=== PATIENT | female | born 1955 | race Caucasian/White ===

== ENCOUNTER → 2018-04-10 | Outpatient (CLI) | payer MEDICARE ==
[~2018-04-10] MED LIST: /AUGM875TA OR; /CELE20CA OR; /VERA40TA OR; COLA100C2 OR; PERC5TAB8 OR; PERC7.5T8 OR; PROP20TA2 OR; TOPI100T OR
[2018-04-10 10:45] LABS: HEMATOCRIT 39.2 % (36.0-47.0); HEMOGLOBIN 12.7 g/dl (12.0-15.5); MEAN CORPUSCULAR HEMOGLOBIN 29.9 pg (27.0-33.0); MEAN CORPUSCULAR HGB CONC 32.4 g/dl (32.0-36.5); MEAN CORPUSCULAR VOLUME 92.2 fl (80.0-96.0); PLATELET COUNT, AUTOMATED 268 10^3/uL (150-450); RED BLOOD COUNT 4.25 10^6/uL (4.00-5.40); WHITE BLOOD COUNT 10.6 10^3/uL (4.0-10.0)
[2018-04-10 10:52] LABS: APPEARANCE, URINE CLOUDY (CLEAR); BACTERIA, URINE AUTO 2+ (NEGATIVE); BILIRUBIN, URINE AUTO NEGATIVE (NEGATIVE); BLOOD, URINE BLOOD 1+ (NEGATIVE); COLOR, URINE YELLOW (YELLOW); GLUCOSE, URINE (UA) AUTO NEGATIVE (NEGATIVE); KETONE, URINE AUTO NEGATIVE (NEGATIVE); LEUKOCYTE ESTERASE, URINE AUTO 3+ (NEGATIVE); MUCUS, URINE SMALL (NEGATIVE); NITRITE, URINE AUTO NEGATIVE (NEGATIVE); PROTEIN, URINE AUTO 1+ mg/dL (NEGATIVE); RBC, URINE AUTO 37 /HPF (0-3); RENAL EPITHELIAL CELLS 1 /HPF; SPECIFIC GRAVITY URINE AUTO 1.009 (1.002-1.035); SQUAMOUS EPITHELIAL CELL UR AU 0 /HPF (0-6); TRANSITIONAL EPITHELIAL AUTO <1 /HPF; UROBILINOGEN, URINE AUTO 0.2 mg/dL (0.0-2.0); WBC, URINE AUTO TNTC /HPF (0-3)
[2018-04-10 11:23] LABS: ALBUMIN 3.1 GM/DL (3.2-5.2); BILIRUBIN,TOTAL 0.6 MG/DL (0.2-1.0); CALCIUM LEVEL 9.1 MG/DL (8.8-10.2); CHOLESTEROL RISK RATIO 2.414 (<5); CREATININE FOR GFR 1.08 MG/DL (0.55-1.30); GLOMERULAR FILTRATION RATE 54.2 (>45); POTASSIUM SERUM 4.9 MEQ/L (3.5-5.1); THYROID STIMULATING HORMONE 0.616 uIU/ML (0.358-3.740); TOTAL 25(OH) VITAMIN D 26.1 NG/ML (30.0-100.0); TOTAL PROTEIN 7.1 GM/DL (6.4-8.2)
[2018-04-10 12:01] LABS: HEMOGLOBIN A1c 5.8 %
--- NOTE | 2018-04-11 04:26 | REP ---
Clinical: Primary hypertension . Comparison: 09/12/2012 . Technique: PA and lateral. Findings: The mediastinum and cardiac silhouette are normal. The lung augustine are clear and without acute consolidation, effusion, or pneumothorax. The skeletal structures are intact and normal. Impression: 1. No acute cardiopulmonary process. Electronically Signed by Faustino Acosta MD 04/11/2018 04:17 A
--- NOTE | 2018-04-11 06:21 | ECGEPIP ---
Stationary ECG Study [facility] Test Date: 2018-04-10 Pat Name: SORAIDA PORTILLO Department: Room: - Gender: F Sock Drier: NORMA : 1955 Requested By: Landry Segundo Order Number: [id number] Reading MD: Paulette Leija Measurements Intervals Lamar Rate: 65 P: 35 IL: 174 QRS: 1 QRSD: 94 T: 41 QT: 391 QTc: 407 Interpretive Statements SINUS RHYTHM SINCE 09/12/12 LEFT AXIS DEVIATION AND POOR R WAVE PROGRESSION ARE NO LONGER PRESENT Electronically Signed On 04-11-2018 6:21:26 EST by Paulette Leija
== END ==
LOC: M LAB 09:48
PROVIDERS: ATTEND Family Medicine
DX: I10 Essential (primary) hypertension (principal); E11.9 Type 2 diabetes mellitus without complications; E03.9 Hypothyroidism, unspecified

== ENCOUNTER → 2018-04-18 | Outpatient (CLI) | payer MEDICARE, OTHER ==
[~2018-04-18] MED LIST changes: +ISOVUE-370 76% 100ML VIAL (Q9967) As Ordered ONE
--- NOTE | 2018-04-18 11:41 | REP ---
Clinical: Painless hematuria. Technique: Axial precontrast, arterial phase, corticomedullary phase and delayed phase images from the lung bases to the pubic symphysis using 100 ml Isovue 370 intravenous contrast material with coronal and sagittal re-formations. Findings: The left kidney demonstrates asymmetric nephrogram with delayed enhancement as well as perinephric stranding and grade 4 hydroureteronephrosis secondary to a multilobulated bladder mass predominantly involving the left bladder trigone/ureterovesicle junction measuring roughly 6 cm maximal diameter. No obvious perivesicular stranding or pelvic adenopathy is appreciated. Left para-aortic retroperitoneal lymph nodes at the level of the left renal pelvis measure up to 1.9 cm. Left renal vein and renal arteries appear patent and without evidence for thrombus. Liver includes stable 3.5 cm cyst. Spleen, pancreas, gallbladder, bilateral adrenal glands and right kidney/ureter appear relatively normal. The enteric system is without obstruction or acute inflammatory process. Pelvis demonstrates relatively normal appearance to the uterus/adnexa. No ascites. No free air. Abdominal aorta demonstrates atherosclerotic changes without aneurysm or dissection. Musculoskeletal structures demonstrate degenerative changes without focal osseous abnormality. Lung bases are clear. Impression: 1. Multilobulated bladder mass consistent with malignancy causing obstruction to the left collecting system with associated grade four hydroureteronephrosis and delayed left nephrogram. Retroperitoneal adenopathy at the level of the renal pelvis measuring up to 19 mm noted. 2. Stable hepatic cyst. 3. No ascites. Electronically Signed by Faustino Acosta MD 04/18/2018 11:33 A
== END ==
LOC: M RAD 10:32
PROVIDERS: ATTEND Family Medicine
DX: N32.9 Bladder disorder, unspecified (principal); K76.89 Other specified diseases of liver; R31.9 Hematuria, unspecified
CPT/HCPCS: 74178; Q9967

== ENCOUNTER → 2018-05-03 | Outpatient (REF) | payer MEDICARE ==
[~2018-05-03] MED LIST changes: +BACT800T5 PO; +FLOM0.4C39 PO; -ISOVUE-370 76% 100ML VIAL (Q9967) As Ordered ONE; +KEFL500C17 PO; +LEVO-98 PO; +OXAY1TAB PO; +OXYB5TAB10 PO; +PROP20TA72 PO; +ROPI2TAB PO; +TYLE500T78 PO; +VERA40TA PO
== END ==
LOC: M SMT 14:03
PROVIDERS: ATTEND Urology Pediatric Urology
DX: N32.89 Other specified disorders of bladder (principal); N13.30 Unspecified hydronephrosis; R31.0 Gross hematuria
CPT/HCPCS: 88108; G0463

== ENCOUNTER → 2018-05-04 | Outpatient (CLI) | payer MEDICARE ==
[~2018-05-04] MED LIST changes: -KEFL500C17 PO
[2018-05-04 09:08] LABS: BASO # 0.1 10^3/uL (0.0-0.2); BASO % 0.6 % (0.0-1.0); EOS # 0.3 10^3/uL (0.0-0.50); EOS % 4.3 % (0.0-3.0); HEMATOCRIT 37.2 % (36.0-47.0); HEMOGLOBIN 11.9 g/dl (12.0-15.5); LYMPH # 1.1 10^3/uL (1.5-4.5); LYMPH % 14.1 % (24.0-44.0); MEAN CORPUSCULAR HEMOGLOBIN 28.7 pg (27.0-33.0); MEAN CORPUSCULAR VOLUME 89.9 fl (80.0-96.0); MONO # 0.6 10^3/uL (0.0-0.8); MONO % 8.1 % (0.0-5.0); NEUTROPHILS # 5.7 10^3/uL (1.8-7.7); NEUTROPHILS % 72.4 % (36.0-66.0); PLATELET COUNT, AUTOMATED 297 10^3/uL (150-450); RED BLOOD COUNT 4.14 10^6/uL (4.00-5.40); WHITE BLOOD COUNT 7.9 10^3/uL (4.0-10.0)
[2018-05-04 09:16] LABS: INR 0.95; PROTHROMBIN TIME 12.8 SECONDS (12.1-14.4)
[2018-05-04 09:17] LABS: PARTIAL THROMBOPLASTIN TIME 30.6 SECONDS (25.4-37.6)
[2018-05-04 09:25] LABS: HEMOGLOBIN A1c 5.7 %
[2018-05-04 09:37] LABS: BILIRUBIN,TOTAL 0.5 MG/DL (0.2-1.0); CALCIUM LEVEL 9.3 MG/DL (8.8-10.2); CREATININE FOR GFR 1.1 MG/DL (0.55-1.30); GLOMERULAR FILTRATION RATE 53.1 (>45); POTASSIUM SERUM 4.4 MEQ/L (3.5-5.1); THYROID STIMULATING HORMONE 0.017 uIU/ML (0.358-3.740); TOTAL PROTEIN 6.9 GM/DL (6.4-8.2)
== END ==
LOC: M LAB 08:16
PROVIDERS: ATTEND Urology Pediatric Urology
DX: Z01.818 Encounter for other preprocedural examination (principal); N32.89 Other specified disorders of bladder; N13.30 Unspecified hydronephrosis; I10 Essential (primary) hypertension; R31.0 Gross hematuria; D64.9 Anemia, unspecified; E11.9 Type 2 diabetes mellitus without complications

== ENCOUNTER → 2018-05-10 | Day surgery (SDC) | payer MEDICARE ==
[~2018-05-10] VITALS: Ht 167.6 cm; Wt 94.3 kg
[~2018-05-10] MED LIST changes: +ACETAMINOPHEN 650 MG SUPP As Ordered ONE; +ACETAMINOPHEN 650 MG SUPP PR ONE; +BACITRACIN OINT 30GM As Ordered ONE; +BELLADONNA ALKALOIDS/OPIUM SUPP As Ordered ONE; +BELLADONNA ALKALOIDS/OPIUM SUPP PR ONE; +CONRAY-60 60% 50ML VIAL (Q9961) As Ordered ONE; +ISOVUE-300 61% 50ML VIAL (Q9967) As Ordered ONE; +LIDOCAINE 1% MDV 20ML VIAL As Ordered ONE; +LIDOCAINE 2% 5ML JELLY UROJET As Ordered ONE; +LIDOCAINE 2% INJ 100 MG/5 ML SDV (FOR ANES.) As Ordered ONE; +LR 1,000 ML IV SCH; +METOCLOPRAMIDE INJ 10MG/2ML VIAL (J2765) IV PRN; +MIDAZOLAM INJ 2 MG/2 ML VIAL (J2250) As Ordered ONE; +ONDANSETRON 4MG/2ML VIAL (J2405) As Ordered ONE; +ONDANSETRON 4MG/2ML VIAL (J2405) IV PRN; +PERCOCET 5MG/325MG TAB As Ordered ONE; +PERCOCET 5MG/325MG TAB PO PRN; +PIPERACILLIN/TAZOBACTAM SOD 2.25 GM in D5W MINI-BAG PLUS 50 ML IV ONE; +PROPOFOL 200 MG/20 ML VIAL As Ordered ONE; +ROCURONIUM BROMIDE 50 MG/5 ML VIAL As Ordered ONE; +SODIUM CHLORIDE 0.9% 1000ML IV ONE; +SUGAMMADEX SODIUM 500 MG/5 ML VIAL (BRIDION) As Ordered ONE; +dexameTHASONE 4 MG/ML 1ML VIAL (J1100) As Ordered ONE; +fentaNYL 100 MCG/2 ML INJECTION (J3010) As Ordered ONE; +fentaNYL 100 MCG/2 ML INJECTION (J3010) IV PRN; +fentaNYL 250 MCG/5 ML INJECTION (J3010) As Ordered ONE; +oxyBUTYnin 5 MG TAB PO PRN
--- NOTE | 2018-05-10 10:50 | ROOPDOC ---
[facility] Report Of Operation Report of Operation DATE OF PROCEDURE: 05/10/18 PREPROCEDURE DIAGNOSES: BLADDER MASSES (EXTREMELY LARGE); LEFT OBSTRUCTED URETER. POSTPROCEDURE DIAGNOSES: SAME. PROCEDURE: TRANSURETHRAL RESECTION OF THE BLADDER TUMOR. SURGEON: ANNALISE WHITMAN MD [facility] ANESTHESIA: GET (DR. VALIENTE). ESTIMATED BLOOD LOSS: Approximately 30 mL. COMPLICATIONS: NONE REMARKS/FINDINGS: 1. BLADDER WALL THIN RIGHT LATERAL SECONDARY REMOVED MUSCLE TISSUE. 2. URETHRAL STRICTURE. 3. SEVERAL EXTREMELY LARGE BLADDER TUMORS 4. RIGHT URETERAL ORIFICE APPEARS NORMAL 5. LEFT URETERAL ORIFICE APPEARS ABNORMAL 6. DISCUSSED LEFT PERCUTANEOUS NEPHROSTOMY TUBE WITH HEAVENLY AND CATHERINE DESCRIPTION OF PROCEDURE: AFTER INFORMED CONSENT THE PATIENT WAS TAKEN TO THE OPERATING ROOM WHERE SHE WAS PLACED IN LITHOTOMY POSITION AND ROUTINE TIME OUT WAS CONDUCTED AFTER TO INDUCTION OF ANESTHESIA WITH ALL THE REYES SURGICAL STAKEHOLDERS. RADIOLOGY WAS CALLED TO COMPLETE THE LEFT PERCUTANEOUS NEPHROSTOMY. THE PATIENT WAS PREPPED AND DRAPED THE URETHRAL WAS DILATED TO 34F WITH SOUNDS AND THEN 27F RESECTOSCOPE (LOOP) WAS PLACED IN THE BLADDER FOR RESECTION OF SEVERAL EXTREMELY LARGE TUMORS. THE BUTTON WAS USED FOR HEMOSTASIS. SURGICEL WAS PLACE IN THE WATER FOR IRRIGATION AND TUMOR WAS IDENTIFIED. FINDINGS ABOVE. A 24F [address] DIGGS WAS PLACED IN THE BLADDER. THE 3 WAY WAS PLACED TO DRAINAGE AND IRRIGATION PORT TO CATHETER PLUG. SPOKE WITH ABOUT FINDINGS AND PLAN OF CARE: FLOMAX TYLENOL BACTRIM DITROPAN ORDERED STOP DITROPAN 24 HOURS PRIOR TO VOIDING TRIAL IN THE OFFICE CYSTOGRAM AN OUTPATIENT WILL SCHEDULED TELEPHONE ENCOUNTER IN [facility]. ANNALISE WHITMAN MD [facility] Annalise Whitman MD May 10, 2018 10:38
--- NOTE | 2018-05-10 16:52 | IPNPDOC ---
Date Seen The patient was seen on 05/10/18. Progress Note SUBJECTIVE: Patient is a 63yo female was seen after her percutaneous nephrostomy tube; she is s/p turbt from earlier. discussed with dr. bruce that he does not admit patients. discussed with patient how she was feeling and she stated, she wants to go home if she could. she has no significant bleeding from her kidney (as demonstrated circumstantially from her left kidney urine) and more blood at her bladder. Orthostatics are normal. without cognitive impairment. OBJECTIVE PHYSICAL EXAMINATION: VITAL SIGNS: laying 140/68 hr 72 sitting 164/81 hr 74 standing 152/79 hr 74 GENERAL: alert and oriented x3 (thinks she understands more than her HEENT: no erythema no exudate CARDIOVASCULAR: rrr no cyanosis RESPIRATORY: good excursion no wheezes no stridor. ABDOMINAL: left side pain (lower quad) EXTREMITIES: no cyanosis no clubbing no edema NEUROLOGICAL: alert and orientated x3 PSYCHOLOGICAL: normal mood and affect LABORATORY DATA, IMAGING STUDIES, MICROBIOLOGY: Please see below. ASSESSMENT AND PLAN: This is a 63 yo white female s/p pcn and turbt; orthostatics normal; h/h pending will schedule her antegrade and cystogram tomorrow when she comes by the office. PROBLEMS: 1. [address] rodriguez s/p turbt: joshua macario teaching irrigation 2. left pcn: pcn to gravity clear urine. 3. bladder tumor/ left obstructive uropathy; pathology pending cystogram and antegrade nephrostogram pending. encourage hydration 10 oxy if she has pain >7/10 otherwise encourage oxybutinin DISPOSITION: home f/u with urology tomorrow. VS, I&O, 24H, Fishbone Vital Signs/I&O Vital Signs Date Time Temp Pulse Resp B/P (MAP) Pulse Ox O2 Delivery O2 Flow Rate FiO2 05/10/18 14:30 96.9 72 18 126/64 (84) 97 Room Air Laboratory Data Microbiology Microbiology 05/10/18 Anaerobic Culture, Received Pending 05/10/18 Urine Culture, Received Pending 05/10/18 Gram Stain - Final, Resulted 05/10/18 Body Fluid Culture, Resulted Pending Mohan Whitman MD May 10, 2018 16:52
[2018-05-10 16:55] LABS: HEMATOCRIT 32.1 % (36.0-47.0); HEMOGLOBIN 10.6 g/dl (12.0-15.5)
[2018-05-10 17:50] VITALS: BP 151/76
--- NOTE | 2018-05-10 18:08 | REP ---
LEFT NEPHROSTOMY DRAINAGE CATHETER INSERTION The procedure was performed under the direct supervision of Dr. Sullivan. Patient has a history of bladder tumor with left ureteral obstruction and left hydronephrosis. Contrast: Approximately 7 ml of Isovue 300 Fluoroscopy time: 2 minutes EBL: Less than 1 ml Anesthetic: 9 ml of 1% lidocaine Anesthesia was present throughout the procedure for pain control and sedation. The risks and benefits of the procedure were explained to the patient and informed consent was obtained. The patient was brought into the interventional suite and placed on the table in the prone oblique position. A time out procedure was performed. The left renal collecting system was localized using ultrasound guidance. The skin was prepped and draped in a sterile fashion. 1% lidocaine was used as a local anesthetic. Using ultrasound guidance the left renal collecting system was accessed with a 21 gauge needle. 5 ml of urine was collected and sent to the lab for analysis. A nephrostogram was performed. A 0.01 a guide wire was inserted and advanced into the collecting system. The needle was removed and a 4.5 Bengali dilator and peel-away sheath was inserted over the guide wire. The guidewire was removed and a 0.035 guidewire was inserted and advanced into the ureter. The sheath was removed and an 8-Bengali Skater APDL was inserted over the guide wire. The loop of the catheter was formed in the renal pelvis. The guidewire was removed. A nephrostogram was performed and images demonstrate good catheter placement. The catheter was affixed to the skin and a sterile dressing was applied. The catheter was connected to a gravity drainage bag. The patient tolerated the procedure well and there were no immediate complications. The patient was taken to recovery room for recovery by anesthesia. Reviewed by PEDRO Wen 05/10/2018 04:08 P Electronically Signed by Jayy Sullivan MD 05/10/2018 05:59 P
== END | disposition home or self-care (01) ==
LOC: M SDC 05:47
PROVIDERS: ATTEND Urology Pediatric Urology
DX: C67.2 Malignant neoplasm of lateral wall of bladder (principal); N13.30 Unspecified hydronephrosis; D64.9 Anemia, unspecified; R31.0 Gross hematuria; R35.0 Frequency of micturition; R39.15 Urgency of urination; E03.9 Hypothyroidism, unspecified; Z79.899 Other long term (current) drug therapy; M54.5 Low back pain
CPT/HCPCS: 50432; 52240; 76000; 76942; 85014; 85018; 87070; 87075; 87088; 87186; 87205; 88307; C1729; C1769; C1894; J1100; J2250; J2405; J2543; J3010; Q9961; Q9967

== ENCOUNTER 2018-05-17 07:58 | Emergency (ER) | payer MEDICARE ==
[~2018-05-17] VITALS: Ht 167.6 cm; Wt 92.7 kg
[~2018-05-17 07:58] MED LIST changes: -ACETAMINOPHEN 650 MG SUPP As Ordered ONE; -ACETAMINOPHEN 650 MG SUPP PR ONE; -BACITRACIN OINT 30GM As Ordered ONE; -BELLADONNA ALKALOIDS/OPIUM SUPP As Ordered ONE; -BELLADONNA ALKALOIDS/OPIUM SUPP PR ONE; -CONRAY-60 60% 50ML VIAL (Q9961) As Ordered ONE; -ISOVUE-300 61% 50ML VIAL (Q9967) As Ordered ONE; -LIDOCAINE 1% MDV 20ML VIAL As Ordered ONE; -LIDOCAINE 2% 5ML JELLY UROJET As Ordered ONE; -LIDOCAINE 2% INJ 100 MG/5 ML SDV (FOR ANES.) As Ordered ONE; -LR 1,000 ML IV SCH; -METOCLOPRAMIDE INJ 10MG/2ML VIAL (J2765) IV PRN; -MIDAZOLAM INJ 2 MG/2 ML VIAL (J2250) As Ordered ONE; -ONDANSETRON 4MG/2ML VIAL (J2405) As Ordered ONE; -ONDANSETRON 4MG/2ML VIAL (J2405) IV PRN; -PERCOCET 5MG/325MG TAB As Ordered ONE; -PERCOCET 5MG/325MG TAB PO PRN; -PIPERACILLIN/TAZOBACTAM SOD 2.25 GM in D5W MINI-BAG PLUS 50 ML IV ONE; -PROPOFOL 200 MG/20 ML VIAL As Ordered ONE; -ROCURONIUM BROMIDE 50 MG/5 ML VIAL As Ordered ONE; -SODIUM CHLORIDE 0.9% 1000ML IV ONE; -SUGAMMADEX SODIUM 500 MG/5 ML VIAL (BRIDION) As Ordered ONE; -dexameTHASONE 4 MG/ML 1ML VIAL (J1100) As Ordered ONE; -fentaNYL 100 MCG/2 ML INJECTION (J3010) As Ordered ONE; -fentaNYL 100 MCG/2 ML INJECTION (J3010) IV PRN; -fentaNYL 250 MCG/5 ML INJECTION (J3010) As Ordered ONE; -oxyBUTYnin 5 MG TAB PO PRN
[2018-05-17 09:02] LABS: BASO # 0.1 10^3/uL (0.0-0.2); BASO % 0.9 % (0.0-1.0); EOS # 0.7 10^3/uL (0.0-0.50); EOS % 5.6 % (0.0-3.0); HEMATOCRIT 35.4 % (36.0-47.0); HEMOGLOBIN 11.4 g/dl (12.0-15.5); LYMPH # 1.4 10^3/uL (1.5-4.5); LYMPH % 12.2 % (24.0-44.0); MEAN CORPUSCULAR HEMOGLOBIN 28.5 pg (27.0-33.0); MEAN CORPUSCULAR HGB CONC 32.2 g/dl (32.0-36.5); MEAN CORPUSCULAR VOLUME 88.5 fl (80.0-96.0); MONO # 0.7 10^3/uL (0.0-0.8); MONO % 5.7 % (0.0-5.0); NEUTROPHILS # 8.5 10^3/uL (1.8-7.7); NEUTROPHILS % 73.3 % (36.0-66.0); PLATELET COUNT, AUTOMATED 300 10^3/uL (150-450); WHITE BLOOD COUNT 11.6 10^3/uL (4.0-10.0)
--- NOTE | 2018-05-17 09:27 | REP ---
CT ABDOMEN AND PELVIS WITHOUT IV OR ORAL CONTRAST: HISTORY: Hematuria status post tumor resection and nephrostomy. Comparison CT study April 18, 2018. CT FINDINGS: Preliminary digital instrument lens inspector radiograph demonstrates a left-sided percutaneous nephrostomy. Bowel gas pattern is normal. The lung bases are clear. There is a cyst in the left lobe of the liver again noted unchanged measuring 3.9 cm in greatest diameter. Liver and spleen are otherwise unremarkable. No adrenal lesion. Gallbladder and pancreas are unremarkable. The left-sided nephrostomy tube is seen in good position. The previously noted hydronephrosis is decompressed. The ureter is less dilated. There is some periureteral edema. A Cotter catheter is noted in the urinary bladder. Around the Cotter balloon, the lumen of the bladder contains higher intensity material consistent with blood. There is some intraluminal air in the bladder near its dome. There is diffuse perivesical edema. Also noted is extravesical air and fluid anterior to the urinary bladder. This implies bladder wall perforation with a small quantity of extravesical air and fluid. No uterine or ovarian abnormality is seen. No free intraperitoneal air or fluid is seen. No retroperitoneal or intraperitoneal hematoma is seen. The study is otherwise unremarkable. IMPRESSION: Cotter catheter and left percutaneous nephrostomy tube in place. Previously noted left-sided hydronephrosis is resolved. There is a small fluid collection anterior to the urinary bladder containing air bubbles consistent with extraperitoneal bladder disruption. No large retroperitoneal or pelvic hematoma. There is high density material surrounding the Cotter balloon in the bladder lumen consistent with blood clots. Electronically Signed by Jayy Sullivan MD 05/17/2018 11:27 A
[2018-05-17 09:34] LABS: ALBUMIN 3.1 GM/DL (3.2-5.2); BILIRUBIN,TOTAL 0.3 MG/DL (0.2-1.0); CALCIUM LEVEL 9.8 MG/DL (8.8-10.2); CREATININE FOR GFR 1.37 MG/DL (0.55-1.30); GLOMERULAR FILTRATION RATE 41.2 (>45); POTASSIUM SERUM 4.5 MEQ/L (3.5-5.1)
[2018-05-17 09:43] LABS: INR 0.88
[2018-05-17 09:57] LABS: BILIRUBIN, URINE MANUAL NEGATIVE (NEGATIVE); GLUCOSE, URINE (UA) MANUAL NEGATIVE (NEGATIVE); KETONE, URINE MANUAL NEGATIVE (NEGATIVE); UROBILINOGEN, URINE MANUAL NORMAL (NORMAL)
[2018-05-17 10:00] LABS: BACTERIA, URINE SMALL AMOUNT; RBC, URINE TNTC /hpf (0-3); SQUAMOUS EPITHELIAL CELL URINE SMALL AMOUNT /hpf (SMALL AMT)
[2018-05-17 10:01] LABS: HYALINE CAST, URINE NONE SEEN /lpf (0-1)
[2018-05-17] MEDS ORDERED: cefTRIAXone SOD 1 GM in D5W MINI-BAG PLUS 50 ML IV ONE (10:30)
[2018-05-17 12:46] VITALS: BP 111/60
[2018-05-19] MEDS ORDERED: KEFL500C17 PO (09:05)
--- NOTE | 2018-05-20 11:09 | ED PDOC ---
Post-Departure Follow-Up dr nath and [facility] urology faxed formal report of ct abd/p for fu Angie Myers MD May 20, 2018 11:09
== END 2018-05-17 13:15 | disposition home or self-care (01) ==
LOC: M ED 07:58
DX: S37.29XA Other injury of bladder, initial encounter (principal); X58.XXXA Exposure to other specified factors, initial encounter; Y92.89 Other specified places as the place of occurrence of the external cause; Z98.890 Other specified postprocedural states; Z85.51 Personal history of malignant neoplasm of bladder; I10 Essential (primary) hypertension; Z96.0 Presence of urogenital implants; Z79.899 Other long term (current) drug therapy
CPT/HCPCS: 51700; 74176; 80053; 81000; 85025; 85610; 86850; 86900; 86901; 87088; 87186; 96374; 99284; J0696

== ENCOUNTER → 2018-05-21 | Outpatient (CLI) | payer MEDICARE ==
[~2018-05-21] MED LIST changes: +CYSTO-CONRAY II 17.2% 250ML VIAL (Q9958) As Ordered ONE; +KEFL500C17 PO
[2018-05-21 13:39] LABS: BASO # 0.1 10^3/uL (0.0-0.2); BASO % 1.1 % (0.0-1.0); EOS # 0.7 10^3/uL (0.0-0.50); EOS % 6.8 % (0.0-3.0); HEMATOCRIT 35.5 % (36.0-47.0); HEMOGLOBIN 11.2 g/dl (12.0-15.5); LYMPH # 1.5 10^3/uL (1.5-4.5); LYMPH % 14.7 % (24.0-44.0); MEAN CORPUSCULAR HEMOGLOBIN 28.9 pg (27.0-33.0); MEAN CORPUSCULAR HGB CONC 31.5 g/dl (32.0-36.5); MEAN CORPUSCULAR VOLUME 91.5 fl (80.0-96.0); MONO # 0.5 10^3/uL (0.0-0.8); MONO % 4.9 % (0.0-5.0); NEUTROPHILS # 7.5 10^3/uL (1.8-7.7); NEUTROPHILS % 71.4 % (36.0-66.0); PLATELET COUNT, AUTOMATED 310 10^3/uL (150-450); RED BLOOD COUNT 3.88 10^6/uL (4.00-5.40); WHITE BLOOD COUNT 10.5 10^3/uL (4.0-10.0)
[2018-05-21 14:03] LABS: ALBUMIN 3.3 GM/DL (3.2-5.2); BILIRUBIN,TOTAL 0.2 MG/DL (0.2-1.0); CREATININE FOR GFR 1.23 MG/DL (0.55-1.30); GLOMERULAR FILTRATION RATE 46.6 (>45); POTASSIUM SERUM 4.8 MEQ/L (3.5-5.1); TOTAL PROTEIN 7.1 GM/DL (6.4-8.2)
--- NOTE | 2018-05-21 15:10 | REP ---
Cystogram: History: Status post recent extensive transurethral bladder tumor resection. Comparison is made with CT study May 17, 2018. Technique: The patient's existing Cotter catheter was connected to Cysto-Conray and fusion. A total of 128 ml of Cysto-Conray was infused under gravity. Fluoroscopic spot filming was performed in the frontal, oblique and lateral projection. There is no evidence of extra vesicle contrast to suggest extravasation. Reflux was not witnessed. Bladder wall is irregular and trabeculated. Filled bladder lumen shows no evidence of filling defect other than the Cotter balloon catheter. There is some leakage around the catheter but no spontaneous voiding. Impression: Trabeculated contracted appearing urinary bladder. No evidence of extravasation or reflux. Fluoroscopy time of 1.2 minutes was utilized to conduct the cystogram and the antegrade pyelogram. Electronically Signed by Jayy Sullivan MD 05/21/2018 03:02 P
--- NOTE | 2018-05-21 15:32 | REP ---
Antegrade nephrostogram left side: History: Status post percutaneous left nephrostomy tube placement for distal ureteral obstruction due to bladder tumor. 1.2 minute total fluoroscopy time was utilized to the conduct this portion of the exam in combination with the cystogram. Findings: The patient's existing left-sided percutaneous nephrostomy tube was injected with contrast and sequential films obtained. No filling defect is observed in the upper tracts. Hydronephrosis is seen with hydroureter. Contrast opacifies the ureter to the ureterovesical junction but we did not observe contrast entering the bladder. No evidence of extravasation. Impression: Left PCN tube in good position. No filling defect or mass observed in the upper tracts. Suspect persistent obstruction at the ureterovesical junction. Electronically Signed by Jayy Sullivan MD 05/21/2018 04:00 P
== END ==
LOC: M LAB 12:56
PROVIDERS: ATTEND Urology Pediatric Urology
DX: C67.0 Malignant neoplasm of trigone of bladder (principal)
CPT/HCPCS: 36415; 74430; 76000; 80053; 85025; Q9958

== ENCOUNTER 2018-06-15 16:32 | Emergency (ER) | payer MEDICARE ==
[~2018-06-15] VITALS: Ht 167.6 cm; Wt 93.6 kg
[~2018-06-15 16:32] MED LIST changes: -CYSTO-CONRAY II 17.2% 250ML VIAL (Q9958) As Ordered ONE
--- NOTE | 2018-06-15 18:32 | REP ---
Renal ultrasound for decreased urine output: Comparison is the CT abdomen pelvis dated 05/17/2018. On the comparison CT there was a left percutaneous nephrostomy. Left kidney: By ultrasound today the left kidney measures 10 x 4 x 5.6 cm and is normal size. The left renal cortical echogenicity is normal. There is no left hydronephrosis. No left renal masses or cysts are identified. However, the nephrostomy tube and cannot be identified within the left renal pelvis by ultrasound today. Right kidney: The right kidney measures 9.5 x 4.6 by 6.0 cm and is normal size. Renal cortical echogenicity is normal. There is no hydronephrosis. There is a 4 mm cyst laterally at the mid pole. There is no solid mass. There is no calculus or hydronephrosis. Bladder: The bladder is incompletely distended and cannot be further evaluated. Impression: The nephrostomy tube cannot be identified within the left renal pelvis by ultrasound today. There is no left renal hydronephrosis. Electronically Signed by Alex Lares MD 06/15/2018 06:23 P
[2018-06-15 19:32] LABS: HEMOGLOBIN 12.6 g/dl (12.0-15.5); MEAN CORPUSCULAR HEMOGLOBIN 28.9 pg (27.0-33.0); MEAN CORPUSCULAR HGB CONC 31.5 g/dl (32.0-36.5); MEAN CORPUSCULAR VOLUME 91.7 fl (80.0-96.0); PLATELET COUNT, AUTOMATED 212 10^3/uL (150-450); RED BLOOD COUNT 4.36 10^6/uL (4.00-5.40); WHITE BLOOD COUNT 5.6 10^3/uL (4.0-10.0)
[2018-06-15 19:56] LABS: BLOOD UREA NITROGEN 14 MG/DL (7-18); CALCIUM LEVEL 10.1 MG/DL (8.8-10.2); CARBON DIOXIDE LEVEL 28 MEQ/L (21-32); CHLORIDE LEVEL 103 MEQ/L (98-107); CREATININE FOR GFR 0.97 MG/DL (0.55-1.30); GLOMERULAR FILTRATION RATE > 60.0 (>45); GLUCOSE, FASTING 85 MG/DL (70-100); POTASSIUM SERUM 4.4 MEQ/L (3.5-5.1); SODIUM LEVEL 140 MEQ/L (136-145)
[2018-06-15] MEDS ORDERED: ISOVUE-370 76% 100ML VIAL (Q9967) As Ordered ONE (20:02)
[2018-06-15 20:34] VITALS: BP 145/62
--- NOTE | 2018-06-15 21:07 | REPVR ---
EXAM: CT Abdomen and Pelvis Without and With Contrast EXAM DATE/TIME: 06/15/2018 8:10 PM CLINICAL HISTORY: 63 years old, female; Signs and symptoms; Other: Blood from nephrostomy tube; Prior surgery; Surgery date: 3-7 days post-operative; Surgery type: Placed nephrostomy tube; Additional info: Urogam TECHNIQUE: Axial computed tomography images of the abdomen and pelvis without and with intravenous contrast. All CT scans at this facility use at least one of these dose optimization techniques: automated exposure control; mA and/or kV adjustment per patient size (includes targeted exams where dose is matched to clinical indication); or iterative reconstruction. Coronal and sagittal reformatted images were created and reviewed. CONTRAST: Contrast Material: 100 ml of ISOVUE 370; Contrast Route: IV COMPARISON: CT ABD PELVIS W/O FOL BY WIT 04/18/2018 10:49 AM FINDINGS: Lower thorax: No acute findings. ABDOMEN: Liver: Left hepatic cysts measuring up to 3.8 cm with a Hounsfield measurement of 3. Gallbladder and bile ducts: Normal. No calcified stones. No ductal dilation. Pancreas: Normal. No ductal dilation. Spleen: Normal. No splenomegaly. Adrenals: Normal. No mass. Kidneys and ureters: Left percutaneous nephrostomy in position in the lower pole. Slight edema of the left renal sinus with no significant hydronephrosis. There is suggestion of focal or localized urothelial wall thickening in the proximal ureter just below the UPJ. Stomach and bowel: Minimal colonic diverticulosis without diverticulitis. Appendix: No evidence of appendicitis. PELVIS: Bladder: There is bladder wall thickening, however, the bladder is nondistended and is nonspecific. Asymmetric blunting of the left posterolateral aspect of the urinary bladder about the left UVJ which is much less prominent since the prior study. Reproductive: Unremarkable as visualized. ABDOMEN and PELVIS: Intraperitoneal space: Normal. No free air. No significant fluid collection. Bones/joints: Degenerative facet arthropathy at the lower lumbar spine with mild anterolisthesis of L4 relative to L5. Soft tissues: Unremarkable. Vasculature: There is mild calcification of the abdominal aorta with extension into the iliac arteries. Lymph nodes: Normal. No enlarged lymph nodes. IMPRESSION: 1. Interval left percutaneous nephrostomy since 04/18/2018 with resolution of left hydronephrosis and hydroureter. There is slight left renal sinus edema. 2. Slight asymmetry of the posterior urinary bladder with blunting of the left posterolateral aspect which is significantly decreased since the prior study. Some of the prior mass may have reflected blood clot. 3. Localized urothelial wall thickening of the proximal ureter just below the UPJ which is nonspecific. Urothelial lesion is not excluded. 4. Minimal colonic diverticulosis without diverticulitis. Electronically signed by: Abhijeet Edward On 06/15/2018 21:07:02 PM
--- NOTE | 2018-06-18 07:35 | ED PDOC ---
Post-Departure Follow-Up dr matt chauhan faxed formal report of renal us for fu Angie Myers MD Jun 18, 2018 07:35
--- NOTE | 2018-06-19 14:06 | ED PDOC ---
Post-Departure Follow-Up dr chauhan also faxed ct abd/p for fu Angie Myers MD Jun 19, 2018 14:06
== END 2018-06-15 22:05 | disposition home or self-care (01) ==
LOC: M ED 16:32
DX: R10.9 Unspecified abdominal pain (principal); R34 Anuria and oliguria; Z93.6 Other artificial openings of urinary tract status; Z85.51 Personal history of malignant neoplasm of bladder; Z79.899 Other long term (current) drug therapy
CPT/HCPCS: 36415; 74178; 76775; 80048; 85027; 87088; 87186; 99284; Q9967

== ENCOUNTER → 2018-06-20 | Outpatient (REF) | payer MEDICARE ==
[2018-06-20 19:52] LABS: APPEARANCE, URINE MANUAL HAZY (CLEAR); COLOR, URINE MANUAL YELLOW (YELLOW)
[2018-06-20 19:53] LABS: BILIRUBIN, URINE MANUAL NEGATIVE (NEGATIVE); BLOOD URINE MANUAL POSITIVE (NEGATIVE); GLUCOSE, URINE (UA) MANUAL NEGATIVE (NEGATIVE); KETONE, URINE MANUAL NEGATIVE (NEGATIVE); LEUKOCYTE ESTERASE, URINE MAN POSITIVE (NEGATIVE); NITRITE, URINE MANUAL POSITIVE (NEGATIVE); PROTEIN, URINE MANUAL 1+ mg/dL (NEGATIVE); SPECIFIC GRAVITY,URINE MANUAL 1.025 (1.002-1.035); UROBILINOGEN, URINE MANUAL NORMAL (NORMAL)
[2018-06-20 20:03] LABS: BACTERIA, URINE MOD AMOUNT; CALCIUM OXALATE CRYSTALS,URINE SMALL AMOUNT /hpf; WBC, URINE TNTC /hpf (0-3)
[2018-06-20 20:04] LABS: AMORPHOUS SEDIMENT, URINE SMALL AMOUNT (NEGATIVE); HYALINE CAST, URINE NONE SEEN /lpf (0-1); MUCUS, URINE SMALL AMOUNT (NEGATIVE)
[2018-06-20 20:07] LABS: RBC, URINE 0-1 /hpf (0-3); SQUAMOUS EPITHELIAL CELL URINE NONE SEEN /hpf (SMALL AMT)
== END ==
LOC: M SMT 17:12
PROVIDERS: ATTEND Urology Pediatric Urology
DX: C67.8 Malignant neoplasm of overlapping sites of bladder (principal); N39.0 Urinary tract infection, site not specified; N13.2 Hydronephrosis with renal and ureteral calculous obstruction
CPT/HCPCS: 51798; 81000; 87088; 87186; G0463

== ENCOUNTER → 2018-06-21 | Outpatient (CLI) | payer MEDICARE ==
[~2018-06-21] VITALS: Ht 167.6 cm; Wt 94.8 kg
[~2018-06-21] MED LIST changes: +ERTAPENEM SODIUM 1 GM in NS 50 ML IV ONE; +ISOVUE-300 61% 50ML VIAL (Q9967) As Ordered ONE; +LIDOCAINE 1% MDV 20ML VIAL As Ordered ONE
--- NOTE | 2018-06-21 16:37 | REP ---
LEFT NEPHROSTOMY DRAINAGE CATHETER CHECK WITH POSSIBLE EXCHANGE OR REMOVAL The procedure was performed under the personal supervision of Dr. Sullivan. The patient has a history of bladder cancer with a left nephrostomy drainage catheter inserted on 05/10/2018. The patient returns today for evaluation of the left ureter drainage into the bladder. The risks and benefits of the procedure were explained to the patient and informed consent was obtained. Contrast: 20 ml of Isovue 300 Anesthesia: Zero Estimated blood loss: Zero Fluoro time: 0.6 minutes The patient was brought into the interventional suite and placed on the table in the prone oblique position. A time out procedure was performed. The catheter and insertion site were prepped and draped in a sterile fashion. A nephrostogram was performed and images demonstrate filling of the left renal collecting system with contrast extending down the ureter and into the bladder without delay. There is no evidence of stricture or obstruction. There is no evidence of extravasation. The catheter was then removed. A sterile dressing was applied. After the appropriate amount of monitored convalescence the patient was discharged from the department. Reviewed by PEDRO Wen 06/21/2018 03:25 P Electronically Signed by Jayy Sullivan MD 06/21/2018 04:29 P
== END ==
LOC: M RADPRO 10:07
PROVIDERS: ATTEND Urology Pediatric Urology
DX: C67.8 Malignant neoplasm of overlapping sites of bladder (principal); Z16.35 Resistance to multiple antimicrobial drugs; T83.512A Infection and inflammatory reaction due to nephrostomy catheter, initial encounter; N39.0 Urinary tract infection, site not specified; N13.2 Hydronephrosis with renal and ureteral calculous obstruction; Z88.2 Allergy status to sulfonamides; Z91.048 Other nonmedicinal substance allergy status; Z79.899 Other long term (current) drug therapy; Y82.8 Other medical devices associated with adverse incidents
CPT/HCPCS: 50389; 50431; 75984; Q9967

== ENCOUNTER → 2018-06-22 | Outpatient (REF) | payer MEDICARE ==
[~2018-06-22] MED LIST changes: -ERTAPENEM SODIUM 1 GM in NS 50 ML IV ONE; -ISOVUE-300 61% 50ML VIAL (Q9967) As Ordered ONE; -LIDOCAINE 1% MDV 20ML VIAL As Ordered ONE
[2018-06-22 15:34] LABS: CLOSTRIDIUM DIFFICILE PCR NEGATIVE (NEGATIVE)
== END ==
LOC: M SMT 12:25
PROVIDERS: ATTEND Urology Pediatric Urology
DX: N32.89 Other specified disorders of bladder (principal)
CPT/HCPCS: 87493; G0463

== ENCOUNTER → 2018-07-23 | Outpatient (CLI) | payer MEDICARE ==
[~2018-07-23] MED LIST changes: -/CELE20CA OR; -/VERA40TA OR; +CELE1CAP4 OR; +VERA1TAB23 OR
[2018-07-23 18:03] LABS: HEMATOCRIT 39.6 % (36.0-47.0); HEMOGLOBIN 12.6 g/dl (12.0-15.5); MEAN CORPUSCULAR HEMOGLOBIN 28.6 pg (27.0-33.0); MEAN CORPUSCULAR HGB CONC 31.8 g/dl (32.0-36.5); MEAN CORPUSCULAR VOLUME 89.8 fl (80.0-96.0); PLATELET COUNT, AUTOMATED 262 10^3/uL (150-450); RED BLOOD COUNT 4.41 10^6/uL (4.00-5.40); WHITE BLOOD COUNT 8.7 10^3/uL (4.0-10.0)
[2018-07-23 18:20] LABS: ALBUMIN 3.6 GM/DL (3.2-5.2); ALT/SGPT 29 U/L (12-78); BILIRUBIN,TOTAL 0.4 MG/DL (0.2-1.0); BLOOD UREA NITROGEN 21 MG/DL (7-18); CALCIUM LEVEL 9.2 MG/DL (8.8-10.2); CARBON DIOXIDE LEVEL 26 MEQ/L (21-32); CHLORIDE LEVEL 109 MEQ/L (98-107); CREATININE FOR GFR 0.85 MG/DL (0.55-1.30); GLOMERULAR FILTRATION RATE > 60.0 (>45); GLUCOSE, FASTING 76 MG/DL (70-100); POTASSIUM SERUM 4.4 MEQ/L (3.5-5.1); SODIUM LEVEL 142 MEQ/L (136-145); TOTAL PROTEIN 7.1 GM/DL (6.4-8.2)
[2018-07-23 19:44] LABS: BACTERIA, URINE AUTO 1+ (NEGATIVE); CALCIUM OXALATE CRYSTALS MODERATE; MUCUS, URINE SMALL (NEGATIVE); RBC, URINE AUTO 10 /HPF (0-3); SQUAMOUS EPITHELIAL CELL UR AU 1 /HPF (0-6); WBC, URINE AUTO 13 /HPF (0-3)
== END ==
LOC: M SMT 15:31
PROVIDERS: ATTEND Specialist
DX: R31.0 Gross hematuria (principal)
CPT/HCPCS: 36415; 51798; 80053; 81015; 85027; 87086; G0463

== ENCOUNTER → 2018-07-26 | Outpatient (CLI) | payer MEDICARE ==
--- NOTE | 2018-07-26 14:30 | REP ---
Clinical: Hematuria. Technique: Real time collins scale ultrasound examination using curved array transducer. Findings: The bilateral kidneys are essentially normal in contour, size, echogenicity, and reniform shape without hydronephrosis, nephrolithiasis, significant cystic or mass lesion. No perinephric fluid collection. Right kidney measures 10.3 x 5.8 x 5.0 cm and includes 7 mm cortical mid pole simple cyst. Left kidney measures 11.4 x 5.0 x 5.4 cm with suggestions for normal column of Peter. The bladder is under distended but grossly normal as visualized. Impression: Essentially normal renal ultrasound. 7 mm right simple cyst. Electronically Signed by Faustino Acosta MD 07/26/2018 02:21 P
== END ==
LOC: M RAD 12:57
PROVIDERS: ATTEND Specialist
DX: R31.0 Gross hematuria (principal); N28.1 Cyst of kidney, acquired

== ENCOUNTER → 2018-07-30 | Outpatient (REF) | payer MEDICARE ==
[2018-07-30 13:35] LABS: APPEARANCE, URINE HAZY (CLEAR); BACTERIA, URINE AUTO NEGATIVE (NEGATIVE); BILIRUBIN, URINE AUTO NEGATIVE (NEGATIVE); BLOOD, URINE BLOOD NEGATIVE (NEGATIVE); CALCIUM OXALATE CRYSTALS SMALL; COLOR, URINE YELLOW (YELLOW); GLUCOSE, URINE (UA) AUTO NEGATIVE (NEGATIVE); KETONE, URINE AUTO NEGATIVE (NEGATIVE); LEUKOCYTE ESTERASE, URINE AUTO 1+ (NEGATIVE); MUCUS, URINE SMALL (NEGATIVE); NITRITE, URINE AUTO NEGATIVE (NEGATIVE); PROTEIN, URINE AUTO NEGATIVE (NEGATIVE); RBC, URINE AUTO 6 /HPF (0-3); SPECIFIC GRAVITY URINE AUTO 1.019 (1.002-1.035); SQUAMOUS EPITHELIAL CELL UR AU 0 /HPF (0-6); UROBILINOGEN, URINE AUTO 0.2 mg/dL (0.0-2.0); WBC, URINE AUTO 37 /HPF (0-3)
== END ==
LOC: M SMT 12:44
PROVIDERS: ATTEND Specialist
DX: C67.8 Malignant neoplasm of overlapping sites of bladder (principal)

== ENCOUNTER → 2018-08-06 | Outpatient (REF) | payer MEDICARE ==
[2018-08-06 13:43] LABS: APPEARANCE, URINE CLOUDY (CLEAR); BACTERIA, URINE AUTO 1+ (NEGATIVE); BILIRUBIN, URINE AUTO NEGATIVE (NEGATIVE); BLOOD, URINE BLOOD 1+ (NEGATIVE); CALCIUM OXALATE CRYSTALS LARGE; COLOR, URINE YELLOW (YELLOW); GLUCOSE, URINE (UA) AUTO NEGATIVE (NEGATIVE); KETONE, URINE AUTO NEGATIVE (NEGATIVE); LEUKOCYTE ESTERASE, URINE AUTO 2+ (NEGATIVE); MUCUS, URINE SMALL (NEGATIVE); NITRITE, URINE AUTO NEGATIVE (NEGATIVE); PROTEIN, URINE AUTO NEGATIVE (NEGATIVE); RBC, URINE AUTO 41 /HPF (0-3); SPECIFIC GRAVITY URINE AUTO 1.024 (1.002-1.035); SQUAMOUS EPITHELIAL CELL UR AU 0 /HPF (0-6); UROBILINOGEN, URINE AUTO 0.2 mg/dL (0.0-2.0); WBC, URINE AUTO 110 /HPF (0-3)
== END ==
LOC: M SMT 12:47
PROVIDERS: ATTEND Nurse Practitioner Family
DX: C67.9 Malignant neoplasm of bladder, unspecified (principal)

== ENCOUNTER → 2018-08-09 | Outpatient (REF) | payer MEDICARE ==
[~2018-08-09] MED LIST changes: +NAPR-837 PO; +OXYB5TAB PO; +ROBA500T PO; +[UNRECOGNIZED DRUG - OTHER] BLADIN
[2018-08-09 19:08] LABS: APPEARANCE, URINE CLEAR (CLEAR); BACTERIA, URINE AUTO NEGATIVE (NEGATIVE); BILIRUBIN, URINE AUTO NEGATIVE (NEGATIVE); BLOOD, URINE BLOOD 1+ (NEGATIVE); COLOR, URINE YELLOW (YELLOW); GLUCOSE, URINE (UA) AUTO NEGATIVE (NEGATIVE); KETONE, URINE AUTO NEGATIVE (NEGATIVE); LEUKOCYTE ESTERASE, URINE AUTO TRACE (NEGATIVE); MUCUS, URINE SMALL (NEGATIVE); NITRITE, URINE AUTO NEGATIVE (NEGATIVE); PROTEIN, URINE AUTO NEGATIVE (NEGATIVE); RBC, URINE AUTO 5 /HPF (0-3); SPECIFIC GRAVITY URINE AUTO 1.019 (1.002-1.035); SQUAMOUS EPITHELIAL CELL UR AU 0 /HPF (0-6); UROBILINOGEN, URINE AUTO 0.2 mg/dL (0.0-2.0); WBC, URINE AUTO 9 /HPF (0-3)
== END ==
LOC: M SMT 17:07
PROVIDERS: ATTEND Specialist
DX: C67.9 Malignant neoplasm of bladder, unspecified (principal)

== ENCOUNTER 2018-08-22 21:39 | Emergency (ER) | payer MEDICARE ==
[~2018-08-22] VITALS: Ht 160 cm; Wt 96.0 kg
[~2018-08-22 21:39] MED LIST changes: -NAPR-837 PO; -OXYB5TAB PO; -ROBA500T PO; -[UNRECOGNIZED DRUG - OTHER] BLADIN
[2018-08-22] MEDS ORDERED: OXYB5TAB PO (22:44)
[2018-08-22] MEDS ORDERED: [UNRECOGNIZED DRUG - OTHER] BLADIN (22:56)
[2018-08-22] MEDS ORDERED: ROBA500T PO (23:03)
[2018-08-22] MEDS ORDERED: NAPR-837 PO (23:03)
[2018-08-22] MEDS ORDERED: METHOCARBAMOL 750 MG TAB PO ONE (23:15)
[2018-08-22] MEDS ORDERED: OXYCODONE/APAP 5MG/325MG(BULK FOR ED) 1 TABLET PO ONE (23:15)
[2018-08-22] MEDS ORDERED: NAPROXEN 250 MG TAB PO ONE (23:15)
[2018-08-22 23:16] VITALS: BP 139/73
--- NOTE | 2018-08-23 09:26 | REP ---
RIGHT HIP, TWO VIEWS: HISTORY: Pain. There is no acute fracture or dislocation. There is mild narrowing of the joint space. IMPRESSION: There is no acute fracture or dislocation. Electronically Signed by Morgan Porter MD 08/23/2018 09:28 A
== END 2018-08-22 23:22 | disposition home or self-care (01) ==
LOC: M ED 21:39
DX: M70.61 Trochanteric bursitis, right hip (principal); I10 Essential (primary) hypertension; E03.9 Hypothyroidism, unspecified; G43.909 Migraine, unspecified, not intractable, without status migrainosus; C67.9 Malignant neoplasm of bladder, unspecified; Z43.6 Encounter for attention to other artificial openings of urinary tract; Z79.899 Other long term (current) drug therapy

== ENCOUNTER → 2018-08-31 | Outpatient (CLI) | payer MEDICARE ==
[~2018-08-31] MED LIST changes: +NAPR-837 PO; +OXYB5TAB PO; +ROBA500T PO; +[UNRECOGNIZED DRUG - OTHER] BLADIN
--- NOTE | 2018-09-01 09:04 | REP ---
MRI RIGHT HIP WITHOUT CONTRAST: HISTORY: Pain in the right hip. Comparison radiographs of the right hip are from August 22, 2018. TECHNIQUE: Coronal T1- and T2-weighted scans of both hips are acquired. High-resolution lower field of view turbo spin echo T2-weighted scans are obtained of the right hip in all three planes as well. MRI FINDINGS: There is some motion artifact. There are osteoarthritic changes bilaterally. There is a small right hip joint effusion. A tiny quantity of normal fluid is seen in the left hip. There is no evidence of avascular necrosis on either side. There is bilateral osteoarthritic change. This is more pronounced on the right. There is superior joint space narrowing chondromalacia, and marrow edema on both sides of the right hip articulation superiorly involving the acetabulum and the femoral head. There is degeneration in the acetabular labral cartilage with swelling of the labral cartilage. Small subcortical cyst formation is seen in the acetabulum. No evidence to suggest mass or bony destructive lesion. No pelvic mass or adenopathy is appreciated. IMPRESSION: Bilateral hip joint osteoarthritis, right more advanced than left with marrow edema, chondromalacia, degenerated and swollen acetabular labral cartilage, and small right hip joint effusion. Electronically Signed by Jayy Sullivan MD 09/01/2018 09:51 A
== END ==
LOC: M RAD 18:29
PROVIDERS: ATTEND Orthopaedic Surgery Sports Medicine
DX: M16.0 Bilateral primary osteoarthritis of hip (principal); M25.451 Effusion, right hip; M94.251 Chondromalacia, right hip

== ENCOUNTER → 2018-10-17 | Outpatient (CLI) | payer MEDICARE ==
[~2018-10-17] MED LIST changes: +ACET-861 PO; +CIPR-250 PO; +PYRI1TAB5 PO
[2018-10-17 13:32] LABS: BLOOD UREA NITROGEN 22 MG/DL (7-18); CALCIUM LEVEL 9.4 MG/DL (8.8-10.2); CARBON DIOXIDE LEVEL 29 MEQ/L (21-32); CHLORIDE LEVEL 109 MEQ/L (98-107); GLOMERULAR FILTRATION RATE > 60.0 (>45); GLUCOSE, FASTING 100 MG/DL (70-100); HEMATOCRIT 36.9 % (36.0-47.0); HEMOGLOBIN 11.4 g/dl (12.0-15.5); MEAN CORPUSCULAR HEMOGLOBIN 27.5 pg (27.0-33.0); MEAN CORPUSCULAR HGB CONC 30.9 g/dl (32.0-36.5); MEAN CORPUSCULAR VOLUME 89.1 fl (80.0-96.0); PLATELET COUNT, AUTOMATED 263 10^3/uL (150-450); POTASSIUM SERUM 4.3 MEQ/L (3.5-5.1); RED BLOOD COUNT 4.14 10^6/uL (4.00-5.40); SODIUM LEVEL 142 MEQ/L (136-145); WHITE BLOOD COUNT 7.9 10^3/uL (4.0-10.0)
== END ==
LOC: M SMT 11:16
PROVIDERS: ATTEND Urology
DX: C67.8 Malignant neoplasm of overlapping sites of bladder (principal)

== ENCOUNTER → 2018-10-17 | Outpatient (CLI) | payer MEDICARE ==
--- NOTE | 2018-10-19 00:02 | ECGEPIP ---
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
== END ==
LOC: M EKG 11:53
PROVIDERS: ATTEND Urology
DX: C67.8 Malignant neoplasm of overlapping sites of bladder (principal)

== ENCOUNTER 2018-10-18 12:44 | Day surgery (SDC) | payer MEDICARE ==
[~2018-10-18] VITALS: Ht 165.1 cm; Wt 94.5 kg
[~2018-10-18 12:44] MED LIST changes: -CIPR-250 PO; -PYRI1TAB5 PO
[2018-10-18] MEDS ORDERED: ceFAZolin 2 GM/D5W 50 ML IV BAG (J0690 PER 500MG) As Ordered ONE (13:16)
[2018-10-18] MEDS ORDERED: CONRAY-60 60% 50ML VIAL (Q9961) As Ordered ONE (13:57)
[2018-10-18] MEDS ORDERED: PROPOFOL 200 MG/20 ML VIAL As Ordered ONE (14:05)
[2018-10-18] MEDS ORDERED: dexameTHASONE 4 MG/ML 1ML VIAL (J1100) As Ordered ONE (14:05)
[2018-10-18] MEDS ORDERED: ROCURONIUM BROMIDE 50 MG/5 ML VIAL As Ordered ONE (14:05)
[2018-10-18] MEDS ORDERED: LIDOCAINE 2% INJ 100 MG/5 ML SDV (FOR ANES.) As Ordered ONE (14:05)
[2018-10-18] MEDS ORDERED: ONDANSETRON 4MG/2ML VIAL (J2405) As Ordered ONE (14:05)
[2018-10-18] MEDS ORDERED: MIDAZOLAM INJ 2 MG/2 ML VIAL (J2250) As Ordered ONE (14:05)
[2018-10-18] MEDS ORDERED: fentaNYL 100 MCG/2 ML INJECTION (J3010) As Ordered ONE ×2 (14:06→15:17)
[2018-10-18] MEDS ORDERED: PHENYLephrine HCL 500 MCG/5 ML (100MCG/ML) SYRINGE (J2370) As Ordered ONE (14:41)
[2018-10-18] MEDS ORDERED: SUGAMMADEX SODIUM 500 MG/5 ML VIAL (BRIDION) As Ordered ONE (14:50)
[2018-10-18] MEDS ORDERED: ACETAMINOPHEN 1000MG 100ML IV BTL (OFIRMEV) (J0131 PER 10MG) As Ordered ONE (14:55)
[2018-10-18] MEDS ORDERED: PYRI1TAB5 PO (15:12)
[2018-10-18] MEDS ORDERED: CIPR-250 PO (15:12)
[2018-10-18] MEDS ORDERED: PHENAZOPYRIDINE 100 MG TAB PO ONE (15:15)
[2018-10-18] MEDS: fentaNYL 100 MCG/2 ML INJECTION (J3010) IV PRN ×4 (15:19→15:34)
--- NOTE | 2018-10-18 15:26 | REP ---
RETROGRADE PYELOGRAM: Four views. HISTORY: Bladder tumor. 3 seconds of fluoroscopy time is reported. FINDINGS: A sequence of four last image hold fluoroscopically obtained spot radiographs document bilateral ureteral cannulation and contrast injection. Electronically Signed by Jayy Sullivan MD 10/18/2018 03:46 P
[2018-10-18] MEDS ORDERED: PERCOCET 5MG/325MG TAB As Ordered ONE (15:32)
[2018-10-18] MEDS ORDERED: oxyCODONE 5MG TAB PO PRN (15:45)
[2018-10-18] MEDS ORDERED: METOCLOPRAMIDE INJ 10MG/2ML VIAL (J2765) IV PRN (15:45)
[2018-10-18] MEDS ORDERED: ONDANSETRON 4MG/2ML VIAL (J2405) IV PRN (15:45)
[2018-10-18] MEDS ORDERED: LR 1,000 ML IV SCH (15:45)
--- NOTE | 2018-10-18 16:15 | RO ---
DATE OF PROCEDURE: 10/18/2018 PREPROCEDURE DIAGNOSIS: Recurrent bladder cancer. POSTPROCEDURE DIAGNOSIS: Recurrent bladder cancer. OPERATIVE PROCEDURE: Cystoscopy with transurethral resection of bladder tumors. Bilateral retrograde pyelography. Random bladder biopsy. SURGEON: Oscar Banks MD COAGULATING DRYING SUPERVISOR: ANESTHESIA: General. INDICATION: This pleasant 63-year-old lady presented with multiple large bladder tumors for which she underwent resection followed by Bacillus Calmette-Helena (BCG) therapy. There was some question of upper tract involvement as she had some hydronephrosis. 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 No muscular invasion detected. Her hydronephrosis resolved after resection of her tumor. Her initial resection was complicated by a hemorrhage requiring catheterization and multiple irrigations. She tolerated BCG quite well. At her first post BCG office cystoscopy, multiple small bladder tumors were noted scattered about the bladder. DESCRIPTION OF PROCEDURE: After obtaining informed consent from the patient she was taken to the operating room where after induction of adequate anesthetic, she was prepped and draped in the usual manner. The 22-Portuguese diagnostic cystoscope was advanced to the bladder and the bladder inspected with 30 degrees lens. Multiple bladder tumors were again noted. The left ureteral orifice showed evidence of prior resection. Bilateral retrograde pyelography was performed. I placed an #8-Portuguese coned tipped catheter sequentially into each ureteral orifice and instilled iodinated contrast in retrograde fashion. This demonstrated prompt filling and emptying of both systems without evidence of intraluminal filling defect, obstruction or stone. Both systems drained promptly and completely. The studies were felt to be normal. We then used cold cup biopsy forceps to remove multiple bladder tumors. We then obtained additional specimens from the base of multiple bladder tumors. Random bladder biopsies were also submitted as a separate specimen. Hemostasis was obtained with Bugbee electrocautery. Final inspection showed no residual bleeding. No residual tumor and clear urine effluxing from both ureteral orifices. The bladder was emptied, the patient to recovery in satisfactory condition. We did not use mitomycin C installation in this situation because of the appearance of a possibly refluxing left ureteral orifice. DISPOSITION: The patient is dismissed home on Cipro 250 twice a day, Pyridium 200 three times a day as needed dysuria. Followup in 2 to 3 weeks. It is likely she may require a second round of BCG therapy. If biopsies should be negative, which I think unlikely, she will resume surveillance cystoscopy.
[2018-10-18 16:45] VITALS: BP 142/67
[2018-10-18] MEDS ORDERED: CIPROFLOXACIN 250 MG TAB PO SCH (18:00)
== END 2018-10-18 17:00 | disposition home or self-care (01) ==
LOC: M SDC 12:44
PROVIDERS: ATTEND Urology
DX: C67.9 Malignant neoplasm of bladder, unspecified (principal); E03.9 Hypothyroidism, unspecified; I10 Essential (primary) hypertension; Z79.899 Other long term (current) drug therapy
CPT/HCPCS: 52234; 74420; 88305; 88307; J0131; J0690; J1100; J2250; J2370; J2405; J3010; Q9961

== ENCOUNTER → 2018-11-23 | Outpatient (CLI) | payer MEDICARE ==
[~2018-11-23] MED LIST changes: +CIPR-250 PO; +PYRI1TAB5 PO
[2018-11-23 13:01] LABS: HEMATOCRIT 37.7 % (36.0-47.0); HEMOGLOBIN 11.8 g/dl (12.0-15.5); MEAN CORPUSCULAR HGB CONC 31.3 g/dl (32.0-36.5); MEAN CORPUSCULAR VOLUME 89.5 fl (80.0-96.0); PLATELET COUNT, AUTOMATED 245 10^3/uL (150-450); RED BLOOD COUNT 4.21 10^6/uL (4.00-5.40); WHITE BLOOD COUNT 8.6 10^3/uL (4.0-10.0)
[2018-11-23 13:08] LABS: ALBUMIN 3.2 GM/DL (3.2-5.2); BILIRUBIN,TOTAL 0.3 MG/DL (0.2-1.0); CALCIUM LEVEL 9.2 MG/DL (8.8-10.2); CREATININE FOR GFR 1.09 MG/DL (0.55-1.30); GLOMERULAR FILTRATION RATE 53.6 (>45); POTASSIUM SERUM 4.6 MEQ/L (3.5-5.1); TOTAL PROTEIN 6.6 GM/DL (6.4-8.2)
[2018-11-23 14:09] LABS: APPEARANCE, URINE HAZY (CLEAR); BACTERIA, URINE AUTO NEGATIVE (NEGATIVE); BILIRUBIN, URINE AUTO NEGATIVE (NEGATIVE); BLOOD, URINE BLOOD 1+ (NEGATIVE); CALCIUM OXALATE CRYSTALS LARGE; COLOR, URINE YELLOW (YELLOW); GLUCOSE, URINE (UA) AUTO NEGATIVE (NEGATIVE); KETONE, URINE AUTO NEGATIVE (NEGATIVE); LEUKOCYTE ESTERASE, URINE AUTO NEGATIVE (NEGATIVE); NITRITE, URINE AUTO NEGATIVE (NEGATIVE); PROTEIN, URINE AUTO NEGATIVE (NEGATIVE); RBC, URINE AUTO 7 /HPF (0-3); SPECIFIC GRAVITY URINE AUTO 1.024 (1.002-1.035); SQUAMOUS EPITHELIAL CELL UR AU 0 /HPF (0-6); UROBILINOGEN, URINE AUTO 0.2 mg/dL (0.0-2.0); WBC, URINE AUTO 0 /HPF (0-3)
== END ==
LOC: M SMT 09:44
PROVIDERS: ATTEND Urology
DX: C67.9 Malignant neoplasm of bladder, unspecified (principal)

== ENCOUNTER → 2018-12-05 | Outpatient (REF) | payer MEDICARE ==
[~2018-12-05] MED LIST changes: -OXYB5TAB PO; +OXYB5TAB2 PO
[2018-12-05 18:25] LABS: APPEARANCE, URINE TURBID (CLEAR); BACTERIA, URINE AUTO NEGATIVE (NEGATIVE); BILIRUBIN, URINE AUTO NEGATIVE (NEGATIVE); BLOOD, URINE BLOOD 1+ (NEGATIVE); CALCIUM OXALATE CRYSTALS LARGE; COLOR, URINE AMBER (YELLOW); GLUCOSE, URINE (UA) AUTO NEGATIVE (NEGATIVE); KETONE, URINE AUTO NEGATIVE (NEGATIVE); LEUKOCYTE ESTERASE, URINE AUTO NEGATIVE (NEGATIVE); MUCUS, URINE SMALL (NEGATIVE); NITRITE, URINE AUTO NEGATIVE (NEGATIVE); PROTEIN, URINE AUTO NEGATIVE (NEGATIVE); RBC, URINE AUTO 24 /HPF (0-3); SPECIFIC GRAVITY URINE AUTO 1.021 (1.002-1.035); SQUAMOUS EPITHELIAL CELL UR AU 0 /HPF (0-6); UROBILINOGEN, URINE AUTO 0.2 mg/dL (0.0-2.0); WBC, URINE AUTO 5 /HPF (0-3)
== END ==
LOC: M SMT 17:07
PROVIDERS: ATTEND Nurse Practitioner Women's Health
DX: C67.9 Malignant neoplasm of bladder, unspecified (principal)

== ENCOUNTER → 2018-12-12 | Outpatient (REF) | payer MEDICARE ==
[~2018-12-12] MED LIST changes: +CYCL10TA
[2018-12-12 20:25] LABS: APPEARANCE, URINE CLEAR (CLEAR); BACTERIA, URINE AUTO NEGATIVE (NEGATIVE); BILIRUBIN, URINE AUTO NEGATIVE (NEGATIVE); BLOOD, URINE BLOOD 1+ (NEGATIVE); CALCIUM OXALATE CRYSTALS SMALL; COLOR, URINE YELLOW (YELLOW); GLUCOSE, URINE (UA) AUTO NEGATIVE (NEGATIVE); KETONE, URINE AUTO NEGATIVE (NEGATIVE); LEUKOCYTE ESTERASE, URINE AUTO NEGATIVE (NEGATIVE); MUCUS, URINE SMALL (NEGATIVE); NITRITE, URINE AUTO NEGATIVE (NEGATIVE); PROTEIN, URINE AUTO NEGATIVE (NEGATIVE); RBC, URINE AUTO 4 /HPF (0-3); SPECIFIC GRAVITY URINE AUTO 1.015 (1.002-1.035); SQUAMOUS EPITHELIAL CELL UR AU 0 /HPF (0-6); UROBILINOGEN, URINE AUTO 0.2 mg/dL (0.0-2.0); WBC, URINE AUTO 2 /HPF (0-3)
== END ==
LOC: M LAB REF 17:26
PROVIDERS: ATTEND Urology
DX: C67.9 Malignant neoplasm of bladder, unspecified (principal); R31.29 Other microscopic hematuria

== ENCOUNTER 2018-12-15 12:16 | Emergency (ER) | payer MEDICARE ==
[~2018-12-15] VITALS: Ht 167.6 cm; Wt 95.9 kg
[~2018-12-15 12:16] MED LIST changes: -CYCL10TA
[2018-12-15] MEDS ORDERED: CYCL10TA (12:25)
--- NOTE | 2018-12-15 13:34 | REP ---
CT of the brain without IV contrast: There are no comparisons. No there is no hemorrhage. There is no edema, mass effect or midline shift. The cortical stripe is unremarkable. Ventricles are normal size. The visualized paranasal sinuses and mastoid air cells are clear. Impression: There is no hemorrhage, acute infarct or mass. Negative CT study of the brain. Electronically Signed by Alex Lares MD 12/15/2018 01:26 P
[2018-12-15 13:49] LABS: HEMATOCRIT 35.1 % (36.0-47.0); HEMOGLOBIN 10.8 g/dl (12.0-15.5); MEAN CORPUSCULAR HEMOGLOBIN 26.9 pg (27.0-33.0); MEAN CORPUSCULAR HGB CONC 30.8 g/dl (32.0-36.5); MEAN CORPUSCULAR VOLUME 87.5 fl (80.0-96.0); PLATELET COUNT, AUTOMATED 210 10^3/uL (150-450); RED BLOOD COUNT 4.01 10^6/uL (4.00-5.40); WHITE BLOOD COUNT 7.7 10^3/uL (4.0-10.0)
[2018-12-15 14:19] LABS: BLOOD UREA NITROGEN 19 MG/DL (7-18); CALCIUM LEVEL 8.8 MG/DL (8.8-10.2); CARBON DIOXIDE LEVEL 30 MEQ/L (21-32); CHLORIDE LEVEL 111 MEQ/L (98-107); CK-MB VALUE MASS 16.6 NG/ML (<3.6); CPK CREATINE PHOSPHOKINASE 2445 U/L (26-192); CREATININE FOR GFR 0.74 MG/DL (0.55-1.30); GLOMERULAR FILTRATION RATE > 60.0 (>45); GLUCOSE, FASTING 108 MG/DL (70-100); MB/CK RELATIVE INDEX 0.68 (< OR =4); POTASSIUM SERUM 4.3 MEQ/L (3.5-5.1); SODIUM LEVEL 145 MEQ/L (136-145); TROPONIN I < 0.02 NG/ML (< 0.10)
--- NOTE | 2018-12-15 14:25 | REPVR ---
EXAM: CT Cervical Spine Without Contrast EXAM DATE/TIME: 12/15/2018 1:08 PM CLINICAL HISTORY: 63 years old, female; Other: Left sided numbness, tingling TECHNIQUE: Imaging protocol: Computed tomography images of the cervical spine without contrast. Radiation optimization: All CT scans at this facility use at least one of these dose optimization techniques: automated exposure control; mA and/or kV adjustment per patient size (includes targeted exams where dose is matched to clinical indication); or iterative reconstruction. COMPARISON: No relevant prior studies available. FINDINGS: Vertebral body heights are intact. Mild reversal of the normal cervical lordotic curve could be secondary to muscle spasm or positioning. Alignment is otherwise maintained. The dens appears intact. The bones appear osteopenic. No acute fracture is identified. The prevertebral soft tissues are not significantly swollen. The visualized lung apices are essentially clear, and no apical pneumothorax is identified. There is multilevel spondylosis with variable osteophytic encroachment of several neural foramina. CT is not optimal for the evaluation of the discs, neural foramina or spinal canal or cord. No significant spinal stenosis is evident. IMPRESSION: 1. No acute fracture or dislocation identified. 2. Apparent osteopenia. 3. Spondylosis without significant spinal stenosis evident. The discs and integrity of the cord could be better evaluated by means of MRI as clinically appropriate. Electronically signed by: Chad Valentin On 12/15/2018 14:24:56 PM
[2018-12-15 14:38] VITALS: BP 142/77
--- NOTE | 2018-12-16 07:13 | ECGEPIP ---
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
== END 2018-12-15 15:11 | disposition home or self-care (01) ==
LOC: M ED 12:16
DX: G56.22 Lesion of ulnar nerve, left upper limb (principal); R20.2 Paresthesia of skin; R06.02 Shortness of breath; I10 Essential (primary) hypertension; E03.9 Hypothyroidism, unspecified; G25.81 Restless legs syndrome; C67.9 Malignant neoplasm of bladder, unspecified; M47.812 Spondylosis without myelopathy or radiculopathy, cervical region; M85.80 Other specified disorders of bone density and structure, unspecified site; Z79.899 Other long term (current) drug therapy

== ENCOUNTER → 2018-12-26 | Outpatient (REF) | payer MEDICARE ==
[~2018-12-26] MED LIST changes: +CYCL10TA PO; +ECOT81TA5 PO; +HYDR-4517 PO; +MELO7.5T35 PO; +OXYB-54 PO; -OXYB5TAB2 PO
[2018-12-26 14:25] LABS: APPEARANCE, URINE HAZY (CLEAR); BACTERIA, URINE AUTO NEGATIVE (NEGATIVE); BILIRUBIN, URINE AUTO NEGATIVE (NEGATIVE); BLOOD, URINE BLOOD 1+ (NEGATIVE); CALCIUM OXALATE CRYSTALS LARGE; COLOR, URINE YELLOW (YELLOW); GLUCOSE, URINE (UA) AUTO NEGATIVE (NEGATIVE); KETONE, URINE AUTO NEGATIVE (NEGATIVE); LEUKOCYTE ESTERASE, URINE AUTO NEGATIVE (NEGATIVE); MUCUS, URINE SMALL (NEGATIVE); NITRITE, URINE AUTO NEGATIVE (NEGATIVE); PROTEIN, URINE AUTO NEGATIVE (NEGATIVE); RBC, URINE AUTO 21 /HPF (0-3); SPECIFIC GRAVITY URINE AUTO 1.024 (1.002-1.035); SQUAMOUS EPITHELIAL CELL UR AU 0 /HPF (0-6); UROBILINOGEN, URINE AUTO 0.2 mg/dL (0.0-2.0); WBC, URINE AUTO 8 /HPF (0-3)
== END ==
LOC: M SMT 13:37
PROVIDERS: ATTEND Urology
DX: C57.9 Malignant neoplasm of female genital organ, unspecified (principal)

== ENCOUNTER → 2019-01-02 | Outpatient (REF) | payer MEDICARE ==
[~2019-01-02] MED LIST changes: +CYCL10TA; -CYCL10TA PO; -ECOT81TA5 PO; -HYDR-4517 PO; -MELO7.5T35 PO; -OXYB-54 PO; +OXYB5TAB2 PO
[2019-01-02 17:53] LABS: APPEARANCE, URINE HAZY (CLEAR); BACTERIA, URINE AUTO NEGATIVE (NEGATIVE); BILIRUBIN, URINE AUTO NEGATIVE (NEGATIVE); BLOOD, URINE BLOOD NEGATIVE (NEGATIVE); CALCIUM OXALATE CRYSTALS LARGE; COLOR, URINE YELLOW (YELLOW); GLUCOSE, URINE (UA) AUTO NEGATIVE (NEGATIVE); KETONE, URINE AUTO NEGATIVE (NEGATIVE); LEUKOCYTE ESTERASE, URINE AUTO NEGATIVE (NEGATIVE); NITRITE, URINE AUTO NEGATIVE (NEGATIVE); PROTEIN, URINE AUTO NEGATIVE (NEGATIVE); RBC, URINE AUTO 1 /HPF (0-3); SPECIFIC GRAVITY URINE AUTO 1.019 (1.002-1.035); SQUAMOUS EPITHELIAL CELL UR AU 1 /HPF (0-6); UROBILINOGEN, URINE AUTO 0.2 mg/dL (0.0-2.0); WBC, URINE AUTO 6 /HPF (0-3)
== END ==
LOC: M SMT 17:06
PROVIDERS: ATTEND Urology
DX: C67.9 Malignant neoplasm of bladder, unspecified (principal)

== ENCOUNTER → 2019-01-10 | Outpatient (CLI) | payer MEDICARE ==
[2019-01-10 12:18] LABS: BASO # 0.1 10^3/uL (0.0-0.2); BASO % 0.8 % (0.0-1.0); EOS # 0.7 10^3/uL (0.0-0.5); EOS % 7.6 % (0.0-3.0); HEMATOCRIT 37.6 % (36.0-47.0); HEMOGLOBIN 11.7 g/dl (12.0-15.5); LYMPH # 1.2 10^3/uL (1.5-5.0); LYMPH % 14.2 % (24.0-44.0); MEAN CORPUSCULAR HEMOGLOBIN 26.5 pg (27.0-33.0); MEAN CORPUSCULAR HGB CONC 31.1 g/dl (32.0-36.5); MEAN CORPUSCULAR VOLUME 85.1 fl (80.0-96.0); MONO # 0.7 10^3/uL (0.0-0.8); MONO % 8.6 % (0.0-5.0); NEUTROPHILS # 5.8 10^3/uL (1.5-8.5); NEUTROPHILS % 68.3 % (36.0-66.0); PLATELET COUNT, AUTOMATED 236 10^3/uL (150-450); RED BLOOD COUNT 4.42 10^6/uL (4.00-5.40); WHITE BLOOD COUNT 8.5 10^3/uL (4.0-10.0)
[2019-01-10 13:07] LABS: ERYTHROCYTE SEDIMENTATION RATE 10 mm/hr (0-30)
[2019-01-10 13:36] LABS: ALBUMIN 3.3 GM/DL (3.2-5.2); ALT/SGPT 20 U/L (12-78); BILIRUBIN,TOTAL 0.3 MG/DL (0.2-1.0); BLOOD UREA NITROGEN 23 MG/DL (7-18); CALCIUM LEVEL 9.5 MG/DL (8.8-10.2); CARBON DIOXIDE LEVEL 26 MEQ/L (21-32); CHLORIDE LEVEL 107 MEQ/L (98-107); CREATININE FOR GFR 0.79 MG/DL (0.55-1.30); FOLATE 7.8 NG/ML; GLOMERULAR FILTRATION RATE > 60.0 (>45); GLUCOSE, FASTING 88 MG/DL (70-100); POTASSIUM SERUM 4.4 MEQ/L (3.5-5.1); RHEUMATOID FACTOR QUANT < 10.0 IU/ML (<15.0); SODIUM LEVEL 141 MEQ/L (136-145); THYROID STIMULATING HORMONE 0.006 uIU/ML (0.358-3.740); TOTAL PROTEIN 6.7 GM/DL (6.4-8.2); VITAMIN B12 LEVEL 400 PG/ML
[2019-01-10 14:12] LABS: APPEARANCE, URINE CLOUDY (CLEAR); BACTERIA, URINE AUTO NEGATIVE (NEGATIVE); BILIRUBIN, URINE AUTO NEGATIVE (NEGATIVE); BLOOD, URINE BLOOD 1+ (NEGATIVE); COLOR, URINE YELLOW (YELLOW); GLUCOSE, URINE (UA) AUTO NEGATIVE (NEGATIVE); KETONE, URINE AUTO NEGATIVE (NEGATIVE); LEUKOCYTE ESTERASE, URINE AUTO NEGATIVE (NEGATIVE); MUCUS, URINE SMALL (NEGATIVE); NITRITE, URINE AUTO NEGATIVE (NEGATIVE); PROTEIN, URINE AUTO NEGATIVE (NEGATIVE); RBC, URINE AUTO 23 /HPF (0-3); SPECIFIC GRAVITY URINE AUTO 1.018 (1.002-1.035); SQUAMOUS EPITHELIAL CELL UR AU 0 /HPF (0-6); UROBILINOGEN, URINE AUTO 0.2 mg/dL (0.0-2.0); WBC, URINE AUTO 7 /HPF (0-3)
[2019-01-10 15:04] LABS: HEMOGLOBIN A1c 5.5 %
[2019-01-15 13:12] LABS: ALBUMIN 3.66 GM/DL (3.29-5.55); ALBUMIN % 54.6 % (55.8-66.1); ALPHA-1-GLOBULIN % 5.4 % (2.9-4.9); ALPHA-2-GLOBULINS % 10.8 % (7.1-11.8); BETA-1-GLOBULINS % 7.6 % (4.7-7.2); BETA-2-GLOBULINS % 7.4 % (3.2-6.5); GAMMA GLOBULIN % 14.2 % (11.1-18.8)
[2019-01-15 13:13] LABS: ALPHA-1-GLOBULINS 0.36 GM/DL (0.17-0.41); ALPHA-2-GLOBULINS 0.72 GM/DL (0.42-0.99); BETA-1-GLOBULINS 0.51 GM/DL (0.28-0.60); GAMMA GLOBULINS 0.95 GM/DL (0.65-1.58)
[2019-01-16 08:08] LABS: CERULOPLASMIN 31.1 mg/dL (19.0-39.0); VITAMIN B1 LEVEL WHOLE BLOOD 115.5 nmol/L (66.5-200.0); VITAMIN B6,PYRIDOXAL PHOSPHATE 4.3 ug/L (2.0-32.8)
[2019-01-16 14:19] LABS: ANCA-ATYPICAL <1:20 titer (Neg:<1:20); ANTI DS-DNA AB <1:10 titer (.); ANTINUCLEAR ANTIBODIES DIRECT Negative (Negative); COPPER PLASMA 126 ug/dL (72-166); CYTOPLASMIC NEUTROP AB ANCA-C <1:20 titer (Neg:<1:20); LEAD BLOOD ADULT <1 ug/dL (0-4); MERCURY LEVEL 4.5 ug/L (0.0-14.9); PERINUCLEAR AB ANCA-P <1:20 titer (Neg:<1:20); SJOGREN'S ANTI SS-A <0.2 AI (0.0-0.9); SJOGREN'S ANTI SS-B <0.2 AI (0.0-0.9); VITAMIN E(ALPHA TOCOPHEROL) 10.2 mg/L (9.0-29.0); VITAMIN E(GAMMA TOCOPHEROL) 2.2 mg/L (0.5-4.9)
== END ==
LOC: M SMT 09:01
PROVIDERS: ATTEND Psychiatry & Neurology Neurology
DX: C67.9 Malignant neoplasm of bladder, unspecified (principal); G62.9 Polyneuropathy, unspecified; Z79.899 Other long term (current) drug therapy

== ENCOUNTER → 2019-01-16 | Outpatient (REF) | payer MEDICARE ==
[2019-01-16 14:15] LABS: APPEARANCE, URINE HAZY (CLEAR); BACTERIA, URINE AUTO NEGATIVE (NEGATIVE); BILIRUBIN, URINE AUTO NEGATIVE (NEGATIVE); BLOOD, URINE BLOOD NEGATIVE (NEGATIVE); CALCIUM OXALATE CRYSTALS LARGE; COLOR, URINE YELLOW (YELLOW); GLUCOSE, URINE (UA) AUTO NEGATIVE (NEGATIVE); KETONE, URINE AUTO NEGATIVE (NEGATIVE); LEUKOCYTE ESTERASE, URINE AUTO NEGATIVE (NEGATIVE); MUCUS, URINE SMALL (NEGATIVE); NITRITE, URINE AUTO NEGATIVE (NEGATIVE); PROTEIN, URINE AUTO NEGATIVE (NEGATIVE); RBC, URINE AUTO 1 /HPF (0-3); SPECIFIC GRAVITY URINE AUTO 1.016 (1.002-1.035); SQUAMOUS EPITHELIAL CELL UR AU 0 /HPF (0-6); UROBILINOGEN, URINE AUTO 0.2 mg/dL (0.0-2.0); WBC, URINE AUTO 1 /HPF (0-3)
== END ==
LOC: M LAB REF 13:34
PROVIDERS: ATTEND Nurse Practitioner Family
DX: C67.9 Malignant neoplasm of bladder, unspecified (principal)

== ENCOUNTER → 2019-03-05 | Outpatient (CLI) | payer MEDICARE ==
[~2019-03-05] MED LIST changes: -CYCL10TA; +CYCL10TA PO; +HYDR-4517 PO; +MELO7.5T35 PO
[2019-03-05 10:42] LABS: HEMATOCRIT 38.4 % (36.0-47.0); HEMOGLOBIN 11.2 g/dl (12.0-15.5); MEAN CORPUSCULAR HEMOGLOBIN 24.8 pg (27.0-33.0); MEAN CORPUSCULAR HGB CONC 29.2 g/dl (32.0-36.5); PLATELET COUNT, AUTOMATED 232 10^3/uL (150-450); RED BLOOD COUNT 4.52 10^6/uL (4.00-5.40); WHITE BLOOD COUNT 6.5 10^3/uL (4.0-10.0)
[2019-03-05 10:57] LABS: INR 0.93; PROTHROMBIN TIME 12.2 SECONDS (11.8-14.0)
[2019-03-05 11:18] LABS: ALBUMIN 3.6 GM/DL (3.2-5.2); ALT/SGPT 26 U/L (12-78); BILIRUBIN,TOTAL 0.4 MG/DL (0.2-1.0); BLOOD UREA NITROGEN 21 MG/DL (7-18); CALCIUM LEVEL 9.5 MG/DL (8.8-10.2); CARBON DIOXIDE LEVEL 28 MEQ/L (21-32); CHLORIDE LEVEL 108 MEQ/L (98-107); CHOLESTEROL LEVEL 212 MG/DL (<200); CHOLESTEROL RISK RATIO 2.436 (<5); CREATININE FOR GFR 0.92 MG/DL (0.55-1.30); GLOMERULAR FILTRATION RATE > 60.0 (>45); GLUCOSE, FASTING 90 MG/DL (70-100); HDL CHOLESTEROL 87 MG/DL (>40); LDL CHOLESTEROL 105 MG/DL (<100); NON-HDL-C 125 MG/DL; POTASSIUM SERUM 4.7 MEQ/L (3.5-5.1); SODIUM LEVEL 140 MEQ/L (136-145); TOTAL PROTEIN 7.1 GM/DL (6.4-8.2); TRIGLYCERIDES LEVEL 100 MG/DL (<150)
--- NOTE | 2019-03-05 15:24 | ECGEPIP ---
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
== END ==
LOC: M LAB 09:38
PROVIDERS: ATTEND Family Medicine
DX: Z01.818 Encounter for other preprocedural examination (principal); I10 Essential (primary) hypertension; C67.9 Malignant neoplasm of bladder, unspecified

== ENCOUNTER → 2019-03-05 | Outpatient (CLI) | payer MEDICARE ==
[2019-03-05 10:54] LABS: HEMATOCRIT 38.8 % (36.0-47.0); HEMOGLOBIN 11.3 g/dl (12.0-15.5); MEAN CORPUSCULAR HEMOGLOBIN 24.9 pg (27.0-33.0); MEAN CORPUSCULAR HGB CONC 29.1 g/dl (32.0-36.5); MEAN CORPUSCULAR VOLUME 85.5 fl (80.0-96.0); PLATELET COUNT, AUTOMATED 234 10^3/uL (150-450); RED BLOOD COUNT 4.54 10^6/uL (4.00-5.40); WHITE BLOOD COUNT 6.7 10^3/uL (4.0-10.0)
[2019-03-05 11:09] LABS: BLOOD UREA NITROGEN 21 MG/DL (7-18); CALCIUM LEVEL 9.2 MG/DL (8.8-10.2); CARBON DIOXIDE LEVEL 27 MEQ/L (21-32); CHLORIDE LEVEL 108 MEQ/L (98-107); CREATININE FOR GFR 0.91 MG/DL (0.55-1.30); GLOMERULAR FILTRATION RATE > 60.0 (>45); GLUCOSE, FASTING 89 MG/DL (70-100); POTASSIUM SERUM 4.8 MEQ/L (3.5-5.1); SODIUM LEVEL 140 MEQ/L (136-145)
--- NOTE | 2019-03-05 11:09 | REP ---
Two-view chest: 03/05/2019. Indication: Preoperative assessment. Comparison: 04/10/2018. Findings: The lungs are clear. There is no pleural effusion or pneumothorax. The cardiac silhouette is mildly prominent. Impression: No acute cardiopulmonary process. Electronically Signed by Hung Harrison DO 03/05/2019 11:00 A
== END ==
LOC: M LAB 09:46
PROVIDERS: ATTEND Urology
DX: Z01.818 Encounter for other preprocedural examination (principal); C67.9 Malignant neoplasm of bladder, unspecified

== ENCOUNTER → 2019-03-19 | Outpatient (REF) | payer MEDICARE ==
[~2019-03-19] MED LIST changes: +ECOT81TA5 PO
== END ==
LOC: M SMT 17:12
PROVIDERS: ATTEND Urology
DX: Z01.818 Encounter for other preprocedural examination (principal); C67.9 Malignant neoplasm of bladder, unspecified; N39.0 Urinary tract infection, site not specified

== ENCOUNTER → 2019-03-25 | Outpatient (REF) | payer MEDICARE ==
[~2019-03-25] MED LIST changes: -OXYB5TAB2 PO; +OXYB5TAB3 PO
[2019-03-25 19:39] LABS: APPEARANCE, URINE CLEAR (CLEAR); BACTERIA, URINE AUTO NEGATIVE (NEGATIVE); BILIRUBIN, URINE AUTO NEGATIVE (NEGATIVE); BLOOD, URINE BLOOD NEGATIVE (NEGATIVE); CALCIUM OXALATE CRYSTALS SMALL; COLOR, URINE YELLOW (YELLOW); GLUCOSE, URINE (UA) AUTO NEGATIVE (NEGATIVE); KETONE, URINE AUTO NEGATIVE (NEGATIVE); LEUKOCYTE ESTERASE, URINE AUTO TRACE (NEGATIVE); NITRITE, URINE AUTO NEGATIVE (NEGATIVE); PROTEIN, URINE AUTO NEGATIVE (NEGATIVE); RBC, URINE AUTO 2 /HPF (0-3); SPECIFIC GRAVITY URINE AUTO 1.018 (1.002-1.035); SQUAMOUS EPITHELIAL CELL UR AU 0 /HPF (0-6); UROBILINOGEN, URINE AUTO 0.2 mg/dL (0.0-2.0); WBC, URINE AUTO 21 /HPF (0-3)
== END ==
LOC: M SMT 17:31
PROVIDERS: ATTEND Urology
DX: C67.9 Malignant neoplasm of bladder, unspecified (principal)

== ENCOUNTER 2019-03-29 10:00 | Day surgery (SDC) | payer MEDICARE ==
[~2019-03-29] VITALS: Ht 162.6 cm; Wt 97.4 kg
[~2019-03-29 10:00] MED LIST changes: -ECOT81TA5 PO; +LIDOCAINE 1% MDV 20ML VIAL SQ PRN; +LR 1,000 ML IV ONE; +ceFAZolin SOD 2 GM in IV 1 EA IV ONE
[2019-03-29] MEDS ORDERED: ECOT81TA5 PO (10:33)
[2019-03-29] MEDS ORDERED: ROCURONIUM BROMIDE 50 MG/5 ML VIAL As Ordered ONE (12:33)
[2019-03-29] MEDS ORDERED: LIDOCAINE 2% INJ 100 MG/5 ML SDV (FOR ANES.) As Ordered ONE (12:34)
[2019-03-29] MEDS ORDERED: ONDANSETRON 4MG/2ML VIAL (J2405) As Ordered ONE (12:34)
[2019-03-29] MEDS ORDERED: PROPOFOL 200 MG/20 ML VIAL As Ordered ONE (12:34)
[2019-03-29] MEDS ORDERED: dexameTHASONE 4 MG/ML 1ML VIAL (J1100) As Ordered ONE (12:34)
[2019-03-29] MEDS ORDERED: SUGAMMADEX SODIUM 500 MG/5 ML VIAL (BRIDION) As Ordered ONE ×2 (12:50→13:49)
[2019-03-29] MEDS ORDERED: ePHEDrine SULFATE 25 MG/5 ML(5MG/ML) SYRINGE As Ordered ONE (12:54)
[2019-03-29] MEDS ORDERED: PHENYLephrine HCL 500 MCG/5 ML (100MCG/ML) SYRINGE (J2370) As Ordered ONE (12:54)
[2019-03-29] MEDS ORDERED: fentaNYL 100 MCG/2 ML INJECTION (J3010) As Ordered ONE (13:12)
[2019-03-29] MEDS ORDERED: MIDAZOLAM INJ 2 MG/2 ML VIAL (J2250) As Ordered ONE (13:17)
[2019-03-29] MEDS ORDERED: CONRAY-60 60% 50ML VIAL (Q9961) As Ordered ONE (13:21)
[2019-03-29] MEDS ORDERED: ONDANSETRON 4MG/2ML VIAL (J2405) IV PRN (15:15)
[2019-03-29] MEDS ORDERED: LR 1,000 ML IV SCH (15:15)
[2019-03-29] MEDS ORDERED: ACETAMINOPHEN TAB 650MG DOSE (2X325MG) PO PRN (15:15)
[2019-03-29] MEDS ORDERED: fentaNYL 100 MCG/2 ML INJECTION (J3010) IV PRN (15:15)
[2019-03-29] MEDS ORDERED: METOCLOPRAMIDE INJ 10MG/2ML VIAL (J2765) IV PRN (15:15)
[2019-03-29 15:20] VITALS: BP 170/77
--- NOTE | 2019-03-30 11:45 | RO ---
DATE OF PROCEDURE: 03/29/2019 PREPROCEDURE DIAGNOSIS: Bladder cancer. POSTPROCEDURE DIAGNOSIS: Bladder cancer. PROCEDURE: Cystoscopy, transurethral resection of bladder tumors (greater than 5 cm), examination under anesthesia. SURGEON: Hansel Lozano MD TYPE COPYIST: None. ANESTHESIA: General. 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 She has received induction BCG as well as maintenance BCG. On recent surveillance cystoscopy she was found to have several tumor recurrences throughout her bladder. She was brought to the operating room today for the above listed procedure. DESCRIPTION OF PROCEDURE: The patient was brought to the operating room and general anesthesia was induced. Prophylactic antibiotics were infused. She was then placed in dorsal lithotomy position and prepped and draped in the usual sterile fashion. At this point, a bimanual vaginal exam was performed. It was negative for palpable bladder masses. The bladder was freely mobile. At this point, a resectoscope was inserted into the urethral meatus and advanced into the bladder using a visual obturator. The bladder was then thoroughly examined. Of note, the left ureteral orifice was somewhat ectopic from her previous bladder tumor resection. The right ureteral orifice was orthotopic. Both effluxed clear urine. There were several papillary tumors scattered throughout the bladder measuring between 15 and 20 in total. There were a few tumors growing near the ureteral orifices, but not directly on top of them. At this point, I utilized a bipolar loop to resect all of the visible tumors in the bladder. I made sure to resect into the muscle layer in several areas. All of the base of resections were then cauterized with the coagulation current until there was good hemostasis. An OpenPortalik evacuator was utilized to remove all of the tumors from the bladder. The bladder was then once again thoroughly examined and it appeared that all visible tumors had been removed. Of note, I did not have to resect on top of the ureteral orifices and therefore I did not place stents. Both ureteral orifices effluxed clear urine at the end of the procedure. Of note, there were a few tumors that were growing very close if not up to the bladder neck. At this point, the resectoscope was removed, then an 18 Bulgarian Cotter catheter was inserted into the bladder. The balloon was filled with 10 mL of sterile water and the fluid drained clear at the end of the procedure. The catheter was connected to a drainage bag and this marked conclusion of the procedure. The patient was then taken out of the dorsal lithotomy position, awakened from anesthesia and transferred to the recovery room in stable condition. ESTIMATED BLOOD LOSS: 5 mL. COMPLICATIONS: None. SPECIMENS: Bladder tumors. PLAN: The patient will followup in the clinic in approximately one week for her pathology results. I will likely leave her catheter in a little bit longer as I did resect pretty deep in a few areas and will have her come back two weeks from now to have her catheter removed. Of note, I suspect this patient will ultimately benefit from a radical cystectomy given her fast recurrence despite resections and BCG. ALANA
== END 2019-03-29 16:20 | disposition home or self-care (01) ==
LOC: M SDC 10:00
PROVIDERS: ATTEND Urology
DX: C67.8 Malignant neoplasm of overlapping sites of bladder (principal); I10 Essential (primary) hypertension; E03.9 Hypothyroidism, unspecified; Z79.82 Long term (current) use of aspirin; Z79.899 Other long term (current) drug therapy; Z92.21 Personal history of antineoplastic chemotherapy; G25.81 Restless legs syndrome
CPT/HCPCS: 52240; 88305; J1100; J2250; J2405; J3010; Q9961

== ENCOUNTER → 2019-04-10 | Outpatient (CLI) | payer MEDICARE ==
[~2019-04-10] MED LIST changes: +ECOT81TA5 PO; +ISOVUE-370 76% 100ML VIAL (Q9967) As Ordered ONE; -LIDOCAINE 1% MDV 20ML VIAL SQ PRN; -LR 1,000 ML IV ONE; -ceFAZolin SOD 2 GM in IV 1 EA IV ONE
--- NOTE | 2019-04-10 19:41 | REP ---
CT ABDOMEN AND PELVIS WITH AND WITHOUT IV CONTRAST (CT UROGRAM): TECHNIQUE: CT abdomen and pelvis performed prior to and following the intravenous administration of 100 mL of Isovue-370. Sagittal, coronal and 3D MIP reconstructions images are performed. The visualized lung bases are clear with some minor fibrotic changes. No renal or ureteral calculus is seen. There is no hydroureteronephrosis. Tiny hypodensity in the lower pole of the right kidney likely represents a subcentimeter cyst, and there appears to be another in the mid right kidney anteriorly. No other renal or ureteral abnormality is seen. There is a Cotter catheter seen in a collapsed urinary bladder. I suspect some degree of thickening of the bladder wall. No mass is seen in the adjacent pelvis. There is no adenopathy in the abdomen or pelvis. The liver demonstrates two cysts in the left lobe, 3.7 cm and 0.8 cm. The spleen is normal in size with no intrinsic abnormality. The adrenal glands are normal. The pancreas demonstrates no mass. Gallbladder is grossly unremarkable. There is no definite biliary dilatation. There is mild atherosclerotic calcification of the abdominal aorta without aneurysm. There is no adenopathy, free air or free fluid. No bowel wall thickening is seen. No pelvic mass is seen. There are degenerative changes of the spine. A few sigmoid diverticula are present. There is no diverticulitis. IMPRESSION: No renal or ureteral calculus. There appears to be a subcentimeter cyst in the lower pole of the right kidney, and there appears to be another in the mid right kidney anteriorly. The bladder is collapsed containing a Cotter catheter. There is suspected bladder wall thickening. No adenopathy in the abdomen or pelvis and no other evidence of pelvic mass. Two cysts seen in the liver. Electronically Signed by Alex Ventura MD 04/10/2019 08:06 P
== END ==
LOC: M RAD 16:05
PROVIDERS: ATTEND Urology
DX: C67.9 Malignant neoplasm of bladder, unspecified (principal); K76.89 Other specified diseases of liver; I70.0 Atherosclerosis of aorta; K57.30 Diverticulosis of large intestine without perforation or abscess without bleeding
CPT/HCPCS: 74178; Q9967

== ENCOUNTER → 2019-05-06 | Outpatient (REF) | payer MEDICARE ==
[~2019-05-06] MED LIST changes: -ISOVUE-370 76% 100ML VIAL (Q9967) As Ordered ONE; +OXYB-54 PO; -OXYB5TAB3 PO
[2019-05-06 19:15] LABS: APPEARANCE, URINE HAZY (CLEAR); BACTERIA, URINE AUTO 1+ (NEGATIVE); BILIRUBIN, URINE AUTO NEGATIVE (NEGATIVE); BLOOD, URINE BLOOD 3+ (NEGATIVE); COLOR, URINE YELLOW (YELLOW); GLUCOSE, URINE (UA) AUTO NEGATIVE (NEGATIVE); KETONE, URINE AUTO NEGATIVE (NEGATIVE); LEUKOCYTE ESTERASE, URINE AUTO 2+ (NEGATIVE); NITRITE, URINE AUTO NEGATIVE (NEGATIVE); PROTEIN, URINE AUTO NEGATIVE (NEGATIVE); RBC, URINE AUTO TNTC /HPF (0-3); SPECIFIC GRAVITY URINE AUTO 1.017 (1.002-1.035); SQUAMOUS EPITHELIAL CELL UR AU 0 /HPF (0-6); UROBILINOGEN, URINE AUTO 0.2 mg/dL (0.0-2.0); WBC, URINE AUTO 124 /HPF (0-3)
== END ==
LOC: M SMT 16:56
PROVIDERS: ATTEND Nurse Practitioner Women's Health
DX: C67.9 Malignant neoplasm of bladder, unspecified (principal); Z79.899 Other long term (current) drug therapy

== ENCOUNTER → 2019-06-18 | Outpatient (CLI) | payer MEDICARE ==
[~2019-06-18] MED LIST changes: -ROPI2TAB PO; +ROPI2TAB3 PO
[2019-06-18 11:52] LABS: HEMATOCRIT 37.5 % (36.0-47.0); HEMOGLOBIN 11.1 g/dl (12.0-15.5); MEAN CORPUSCULAR HEMOGLOBIN 24.5 pg (27.0-33.0); MEAN CORPUSCULAR HGB CONC 29.6 g/dl (32.0-36.5); MEAN CORPUSCULAR VOLUME 82.8 fl (80.0-96.0); PLATELET COUNT, AUTOMATED 245 10^3/uL (150-450); RED BLOOD COUNT 4.53 10^6/uL (4.00-5.40)
[2019-06-18 12:06] LABS: INR 0.97; PROTHROMBIN TIME 12.6 SECONDS (11.8-14.0)
[2019-06-18 12:15] LABS: HEMOGLOBIN A1c 5.7 %
[2019-06-18 12:23] LABS: ALBUMIN 3.4 GM/DL (3.2-5.2); ALT/SGPT 24 U/L (12-78); BILIRUBIN,TOTAL 0.6 MG/DL (0.2-1.0); BLOOD UREA NITROGEN 21 MG/DL (7-18); CALCIUM LEVEL 9.5 MG/DL (8.8-10.2); CARBON DIOXIDE LEVEL 31 MEQ/L (21-32); CHLORIDE LEVEL 106 MEQ/L (98-107); CHOLESTEROL LEVEL 172 MG/DL (<200); CHOLESTEROL RISK RATIO 2.646 (<5); CREATININE FOR GFR 0.83 MG/DL (0.55-1.30); GLOMERULAR FILTRATION RATE > 60.0 (>45); GLUCOSE, FASTING 84 MG/DL (70-100); HDL CHOLESTEROL 65 MG/DL (>40); LDL CHOLESTEROL 83 MG/DL (<100); NON-HDL-C 107 MG/DL; POTASSIUM SERUM 4.4 MEQ/L (3.5-5.1); SODIUM LEVEL 139 MEQ/L (136-145); THYROID STIMULATING HORMONE 0.186 uIU/ML (0.358-3.740); TOTAL PROTEIN 6.5 GM/DL (6.4-8.2); TRIGLYCERIDES LEVEL 122 MG/DL (<150)
--- NOTE | 2019-06-18 14:03 | REP ---
CHEST, TWO VIEWS: Two views of the chest performed and compared to a prior study of 05/05/2018. There is no acute infiltrate or pulmonary edema. The heart is upper limits of normal in size. The mediastinal silhouette is unchanged since the prior study of 03/05/2019. There are degenerative changes of the spine. IMPRESSION: No acute pulmonary disease. Electronically Signed by Alex Ventura MD 06/18/2019 08:19 P
--- NOTE | 2019-06-18 18:54 | ECGEPIP ---
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 Electronically Signed on 06-18-2019 18:54:37 EST by Oscar Simmons
== END ==
LOC: M LAB 10:35
PROVIDERS: ATTEND Family Medicine
DX: Z01.818 Encounter for other preprocedural examination (principal); I10 Essential (primary) hypertension; E03.9 Hypothyroidism, unspecified

== ENCOUNTER → 2019-07-31 | Outpatient (CLI) | payer MEDICARE ==
[~2019-07-31] MED LIST changes: +NEUR300C PO
--- NOTE | 2019-07-31 18:43 | ECHO ---
DATE OF PROCEDURE: 07/31/2019 AGE: 64 GENDER: Female HEIGHT: 66 inches WEIGHT: 225 pounds BODY SURFACE AREA: 2.1 m2. PATIENT LOCATION: Outpatient. REFERRING PHYSICIAN: Dr. Marlen Grey INDICATION: Potentially cardiotoxic chemotherapy. 2-D MEASUREMENTS RV: 3.6 cm LV: 4.6 cm Septum: 1.3 cm Posterior wall: 1.3 cm Aortic root: 3.3 cm LA: 4.3 cm LVEF: 70% DOPPLER MEASUREMENTS: AV: 1.6 m/s LVOT: 1.3 m/s LVOT diameter: 2.0 cm MV-E: 74, A: 90, EA ratio: 0.8 Early mitral deceleration time: 190 ms E prime medial: 6.2 A prime medial: 7.9 E prime lateral: 9.6 Average E/E prime ratio: 9.4/PCWP: 13.5 mmHg PV: 0.8 m/s Pulmonary artery acceleration time. PASP: 29 mmHg IVC: 1.7 cm COMMENTS Normal sinus rhythm without intraventricular conduction disturbance. M-mode and two-dimensional echocardiography was performed with pulsed, continuous wave, color flow and tissue Doppler studies. Mild concentric left ventricle hypertrophy with hyperkinetic wall motion. Mildly dilated left atrium with grade 1 LV diastolic dysfunction and current estimated mean left atrial pressure upper limits of normal. Normal right heart chamber sizes and motion with estimated pulmonary arterial pressure upper limits of normal. Normal IVC size and collapse against an elevated central venous pressure. Normal appearing and functioning valvular structures. Normal aortic dimensions. No apparent intracardiac mass or pericardial effusion.
== END ==
LOC: M CARPUL 09:12
PROVIDERS: ATTEND Internal Medicine Medical Oncology
DX: C67.9 Malignant neoplasm of bladder, unspecified (principal); Z79.899 Other long term (current) drug therapy

== ENCOUNTER → 2019-08-19 | Outpatient (CLI) | payer MEDICARE ==
[~2019-08-19] MED LIST changes: +CYCL-707 PO; -CYCL10TA PO
[2019-08-19 14:40] LABS: BASO # 0.1 10^3/uL (0.0-0.2); BASO % 0.8 % (0.0-1.0); EOS # 0.9 10^3/uL (0.0-0.5); EOS % 12.7 % (0.0-3.0); HEMATOCRIT 39.5 % (36.0-47.0); HEMOGLOBIN 11.9 g/dl (12.0-15.5); LYMPH # 1.2 10^3/uL (1.5-5.0); MEAN CORPUSCULAR HEMOGLOBIN 24.6 pg (27.0-33.0); MEAN CORPUSCULAR HGB CONC 30.1 g/dl (32.0-36.5); MEAN CORPUSCULAR VOLUME 81.8 fl (80.0-96.0); MONO # 0.5 10^3/uL (0.0-0.8); MONO % 6.7 % (0.0-5.0); NEUTROPHILS # 4.6 10^3/uL (1.5-8.5); NEUTROPHILS % 63.7 % (36.0-66.0); PLATELET COUNT, AUTOMATED 220 10^3/uL (150-450); RED BLOOD COUNT 4.83 10^6/uL (4.00-5.40); WHITE BLOOD COUNT 7.3 10^3/uL (4.0-10.0)
[2019-08-19 15:16] LABS: ALBUMIN 3.4 GM/DL (3.2-5.2); ALT/SGPT 28 U/L (12-78); BILIRUBIN,TOTAL 0.4 MG/DL (0.2-1.0); BLOOD UREA NITROGEN 17 MG/DL (7-18); CALCIUM LEVEL 9.8 MG/DL (8.8-10.2); CARBON DIOXIDE LEVEL 28 MEQ/L (21-32); CHLORIDE LEVEL 108 MEQ/L (98-107); CREATININE FOR GFR 0.83 MG/DL (0.55-1.30); FREE T4 1.44 NG/DL (0.76-1.46); GLOMERULAR FILTRATION RATE > 60.0 (>45); GLUCOSE, FASTING 94 MG/DL (70-100); POTASSIUM SERUM 4.5 MEQ/L (3.5-5.1); SODIUM LEVEL 141 MEQ/L (136-145); THYROID STIMULATING HORMONE 0.569 uIU/ML (0.358-3.740); TOTAL PROTEIN 7.3 GM/DL (6.4-8.2)
== END ==
LOC: M LAB 14:17
PROVIDERS: ATTEND Internal Medicine Medical Oncology
DX: C67.9 Malignant neoplasm of bladder, unspecified (principal); Z88.2 Allergy status to sulfonamides; Z79.899 Other long term (current) drug therapy

== ENCOUNTER → 2019-09-09 | Outpatient (CLI) | payer MEDICARE ==
[2019-09-09 14:35] LABS: ALBUMIN 3.2 GM/DL (3.2-5.2); ALT/SGPT 25 U/L (12-78); BILIRUBIN,TOTAL 0.3 MG/DL (0.2-1.0); BLOOD UREA NITROGEN 20 MG/DL (7-18); CALCIUM LEVEL 9.1 MG/DL (8.8-10.2); CARBON DIOXIDE LEVEL 29 MEQ/L (21-32); CHLORIDE LEVEL 110 MEQ/L (98-107); CREATININE FOR GFR 0.84 MG/DL (0.55-1.30); FREE T4 1.67 NG/DL (0.76-1.46); GLOMERULAR FILTRATION RATE > 60.0 (>45); GLUCOSE, FASTING 110 MG/DL (70-100); POTASSIUM SERUM 4.8 MEQ/L (3.5-5.1); SODIUM LEVEL 142 MEQ/L (136-145); THYROID STIMULATING HORMONE 0.041 uIU/ML (0.358-3.740); TOTAL PROTEIN 6.7 GM/DL (6.4-8.2)
== END ==
LOC: M LAB 13:13
PROVIDERS: ATTEND Internal Medicine Medical Oncology
DX: Z51.81 Encounter for therapeutic drug level monitoring (principal); C67.9 Malignant neoplasm of bladder, unspecified; Z88.2 Allergy status to sulfonamides; Z79.899 Other long term (current) drug therapy

== ENCOUNTER → 2019-09-23 | Outpatient (CLI) | payer MEDICARE ==
[2019-09-23 11:20] LABS: HEMATOCRIT 36.7 % (36.0-47.0); HEMOGLOBIN 10.9 g/dl (12.0-15.5); MEAN CORPUSCULAR HEMOGLOBIN 24.8 pg (27.0-33.0); MEAN CORPUSCULAR HGB CONC 29.7 g/dl (32.0-36.5); MEAN CORPUSCULAR VOLUME 83.4 fl (80.0-96.0); PLATELET COUNT, AUTOMATED 248 10^3/uL (150-450); WHITE BLOOD COUNT 8.6 10^3/uL (4.0-10.0)
[2019-09-23 11:31] LABS: INR 0.95; PROTHROMBIN TIME 12.4 SECONDS (11.8-14.0)
[2019-09-23 12:29] LABS: ALBUMIN 3.2 GM/DL (3.2-5.2); ALT/SGPT 23 U/L (12-78); BILIRUBIN,TOTAL 0.4 MG/DL (0.2-1.0); BLOOD UREA NITROGEN 19 MG/DL (7-18); CALCIUM LEVEL 9.3 MG/DL (8.8-10.2); CARBON DIOXIDE LEVEL 31 MEQ/L (21-32); CHLORIDE LEVEL 106 MEQ/L (98-107); CHOLESTEROL LEVEL 147 MG/DL (<200); CHOLESTEROL RISK RATIO 2.826 (<5); GLOMERULAR FILTRATION RATE > 60.0 (>45); GLUCOSE, FASTING 88 MG/DL (70-100); HDL CHOLESTEROL 52 MG/DL (>40); LDL CHOLESTEROL 73 MG/DL (<100); NON-HDL-C 95 MG/DL; POTASSIUM SERUM 4.8 MEQ/L (3.5-5.1); SODIUM LEVEL 140 MEQ/L (136-145); THYROID STIMULATING HORMONE 0.053 uIU/ML (0.358-3.740); TOTAL PROTEIN 6.8 GM/DL (6.4-8.2); TRIGLYCERIDES LEVEL 110 MG/DL (<150)
[2019-09-23 13:16] LABS: HEMOGLOBIN A1c 5.5 %
== END ==
LOC: M LAB 09:57
PROVIDERS: ATTEND Family Medicine
DX: Z01.818 Encounter for other preprocedural examination (principal); I10 Essential (primary) hypertension; E11.9 Type 2 diabetes mellitus without complications

== ENCOUNTER → 2019-09-27 | Outpatient (REF) | payer MEDICARE ==
[~2019-09-27] MED LIST changes: +SULF1TAB93 PO
== END ==
LOC: M SMT 18:22
PROVIDERS: ATTEND Urology
DX: Z01.818 Encounter for other preprocedural examination (principal); C67.9 Malignant neoplasm of bladder, unspecified; N39.0 Urinary tract infection, site not specified

== ENCOUNTER → 2019-10-01 | Outpatient (CLI) | payer MEDICARE | LOC: M LABSMTC 09:59 | PROVIDERS: ATTEND Anesthesiology | DX: Z03.818 Encounter for observation for suspected exposure to other biological agents ruled out (principal); Z11.59 Encounter for screening for other viral diseases | CPT/HCPCS: C9803; U0003 ==

== ENCOUNTER 2019-10-04 10:52 | Day surgery (SDC) | payer MEDICARE ==
[~2019-10-04] VITALS: Ht 167.6 cm; Wt 97.4 kg
[~2019-10-04 10:52] MED LIST changes: +LR 1,000 ML IV ONE; -SULF1TAB93 PO; +ceFAZolin SOD 2 GM in IV 1 EA IV ONE
[2019-10-04] MEDS ORDERED: SULF1TAB93 PO (11:12)
[2019-10-04] MEDS ORDERED: MIDAZOLAM INJ 2MG/2ML VIAL (J2250 PER 1MG) As Ordered ONE (11:21)
[2019-10-04] MEDS ORDERED: ONDANSETRON 4MG/2ML VIAL As Ordered ONE (11:21)
[2019-10-04] MEDS ORDERED: propofoL 200 MG/20 ML VIAL As Ordered ONE (11:21)
[2019-10-04] MEDS ORDERED: METOCLOPRAMIDE INJ 10MG/2ML VIAL (J2765 PER 1) As Ordered ONE (11:21)
[2019-10-04] MEDS ORDERED: ROCURONIUM BROMIDE 50 MG/5 ML VIAL As Ordered ONE (11:21)
[2019-10-04] MEDS ORDERED: LIDOCAINE 2% 100MG/5ML SDV (FOR ANES.) As Ordered ONE (11:21)
[2019-10-04] MEDS ORDERED: fentaNYL 100 MCG/2 ML INJECTION (J3010) As Ordered ONE (11:21)
[2019-10-04] MEDS ORDERED: KETOROLAC 60MG 2ML VIAL As Ordered ONE (13:03)
[2019-10-04 14:40] VITALS: BP 182/80
--- NOTE | 2019-10-08 15:18 | RO ---
DATE OF PROCEDURE: 10/04/2019 PREPROCEDURE DIAGNOSIS: Bladder cancer. POSTPROCEDURE DIAGNOSIS: Bladder cancer. PROCEDURE: Cystoscopy, transurethral resection of the bladder tumors (less than 2 cm ). SURGEON: Dr. Hansel Lozano. SHIP'S PILOT: None. ANESTHESIA: General. OPERATIVE INDICATIONS: This is a 64-year-old female with a history of high grade urothelial carcinoma of the bladder and several recurrence despite Bacillus Calmette Hel[place] (BCG) treatment. She had another recurrence and was brought to the operating room today for resection. DESCRIPTION OF PROCEDURE: The patient was brought to the operating room and general anesthesia was induced. Prophylactic antibiotics were infused. She was then placed in the dorsal lithotomy position and prepped and draped in the usual sterile fashion. A rigid resectoscope was inserted into the urethral meatus and advanced into the bladder using the visual obturator. The bladder was then thoroughly examined. Of note, the patient had two small papillary tumors with one on the dome and other one in the posterolateral wall. No other tumors were visualized in the bladder. Both these tumors were resected using a Gyrus loop and then removed from the bladder. The base of resection was cauterized with the coagulation current till there was good hemostasis. Once certain that there were no remaining tumors, and there was good hemostasis, the resectoscope was removed and an 18-Swazi Cotter catheter was inserted into the bladder. The balloon was filled with 10 mL of sterile water and the catheter was connected to gravity drainage. The patient was taken out of the dorsal lithotomy position, awakened from anesthesia and transported to the recovery room in stable condition. ESTIMATED BLOOD LOSS: 5 mL. COMPLICATIONS: None. SPECIMEN: Bladder tumors. PLAN: The patient will followup in the clinic for catheter removal and pathology results. NY[facility] LANGONE HEALTH SYSTEMLaurence
== END 2019-10-04 14:50 | disposition home or self-care (01) ==
LOC: M SDC 10:52
PROVIDERS: ATTEND Urology
DX: C67.9 Malignant neoplasm of bladder, unspecified (principal); I10 Essential (primary) hypertension; E03.9 Hypothyroidism, unspecified; G43.909 Migraine, unspecified, not intractable, without status migrainosus; Z86.73 Personal history of transient ischemic attack (TIA), and cerebral infarction without residual deficits; Z79.82 Long term (current) use of aspirin; Z79.899 Other long term (current) drug therapy
CPT/HCPCS: 52234; 88305; J0690; J1885; J2250; J2405; J2765; J3010

== ENCOUNTER → 2019-11-11 | Outpatient (REF) | payer MEDICARE ==
[~2019-11-11] MED LIST changes: -LR 1,000 ML IV ONE; +NEUR600T PO; +SM 88TAB PO; +SULF1TAB93 PO; +TRAM50TA2 PO; -ceFAZolin SOD 2 GM in IV 1 EA IV ONE
[2019-11-11 18:46] LABS: APPEARANCE, URINE CLOUDY (CLEAR); BACTERIA, URINE AUTO 1+ (NEGATIVE); BILIRUBIN, URINE AUTO NEGATIVE (NEGATIVE); BLOOD, URINE BLOOD 1+ (NEGATIVE); COLOR, URINE YELLOW (YELLOW); GLUCOSE, URINE (UA) AUTO NEGATIVE (NEGATIVE); KETONE, URINE AUTO NEGATIVE (NEGATIVE); LEUKOCYTE ESTERASE, URINE AUTO 3+ (NEGATIVE); NITRITE, URINE AUTO NEGATIVE (NEGATIVE); PROTEIN, URINE AUTO 1+ mg/dL (NEGATIVE); RBC, URINE AUTO 7 /HPF (0-3); SPECIFIC GRAVITY URINE AUTO 1.012 (1.002-1.035); SQUAMOUS EPITHELIAL CELL UR AU 1 /HPF (0-6); UROBILINOGEN, URINE AUTO 0.2 mg/dL (0.0-2.0); WBC, URINE AUTO TNTC /HPF (0-3)
== END ==
LOC: M SMT 16:57
PROVIDERS: ATTEND Nurse Practitioner Women's Health
DX: R30.0 Dysuria (principal)

== ENCOUNTER → 2019-12-26 | Outpatient (CLI) | payer MEDICARE ==
[2019-12-26 07:33] LABS: HEMATOCRIT 39.7 % (36.0-47.0); HEMOGLOBIN 11.9 g/dl (12.0-15.5); MEAN CORPUSCULAR HEMOGLOBIN 26.7 pg (27.0-33.0); MEAN CORPUSCULAR VOLUME 89.2 fl (80.0-96.0); PLATELET COUNT, AUTOMATED 260 10^3/uL (150-450); RED BLOOD COUNT 4.45 10^6/uL (4.00-5.40); WHITE BLOOD COUNT 7.8 10^3/uL (4.0-10.0)
[2019-12-26 07:43] LABS: INR 0.9; PROTHROMBIN TIME 12.3 SECONDS (11.8-14.0)
[2019-12-26 07:44] LABS: HEMOGLOBIN A1c 5.7 %
[2019-12-26 07:56] LABS: ALBUMIN 3.5 GM/DL (3.2-5.2); BILIRUBIN,TOTAL 0.5 MG/DL (0.2-1.0); CALCIUM LEVEL 9.7 MG/DL (8.8-10.2); CHOLESTEROL RISK RATIO 3.278 (<5); CREATININE FOR GFR 1.3 MG/DL (0.55-1.30); GLOMERULAR FILTRATION RATE 43.6 (>45); POTASSIUM SERUM 4.4 MEQ/L (3.5-5.1); TOTAL PROTEIN 7.7 GM/DL (6.4-8.2)
[2019-12-26 09:08] LABS: TOTAL 25(OH) VITAMIN D 24.6 NG/ML (30.0-100.0)
--- NOTE | 2020-01-01 13:30 | REP ---
CHEST X-RAY CLINICAL: Preoperative assessment. History of hypertension. TECHNIQUE: PA and lateral. COMPARISON: 06/18/2019. FINDINGS: Mediastinum and cardiac silhouette normal. Lung augustine clear. No focal consolidation, effusion, or pneumothorax. Skeletal structures are intact. IMPRESSION: No focal consolidation or effusion. MTDD
--- NOTE | 2020-01-15 16:23 | ECGEPIP ---
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
== END ==
LOC: M LAB 06:30
PROVIDERS: ATTEND Family Medicine
DX: Z01.818 Encounter for other preprocedural examination (principal); R94.31 Abnormal electrocardiogram [ECG] [EKG]; I10 Essential (primary) hypertension; Z79.899 Other long term (current) drug therapy

== ENCOUNTER → 2020-01-01 | Outpatient (CLI) | payer MEDICARE | LOC: M LABSMTC 12:02 | PROVIDERS: ATTEND Anesthesiology | DX: Z11.59 Encounter for screening for other viral diseases (principal) | CPT/HCPCS: C9803; U0003 ==

== ENCOUNTER 2020-01-06 05:59 | Inpatient (IN) | payer MEDICARE ==
--- NOTE | 2020-01-04 21:53 | HPE ---
DATE OF ANTICIPATED ADMISSION: 01/06/2020 ATTENDING PHYSICIAN: Senthil Rivas MD CHIEF COMPLAINT: Right hip pain and stiffness. HISTORY: Patient is a 64-year-old female with progressively worsening right hip pain and stiffness. She has failed to improve with conservative measures. She continues to have symptoms with weightbearing activities and activities of daily living. She has consented for an elective right total hip arthroplasty with Dr. Rivas for her continued symptoms. Medical optimization pending with Dr. Correa. CURRENT MEDICATIONS: - levothyroxine 75 mcg daily - ropinirole 2 mg twice a day - propranolol 20 mg twice a day - verapamil 40 mg three times a day - oxybutynin 5 mg daily - Christopher low dose aspirin 81 mg daily ALLERGIES: SULFA drugs. CHRONIC MEDICAL CONDITIONS: Hypertension, migraines, thyroid disease, bladder cancer. SURGICAL HISTORY: Tonsillectomy, bladder surgery times two, dilatation and curettage (D and C), eye surgery, and right thumb surgery. SOCIAL HISTORY: Patient denies tobacco or alcohol use. She is and lives at home with her spouse. REVIEW OF SYSTEMS: Patient denies fevers, chills, nausea, vomiting, or diarrhea. Denies chest pain, shortness of breath, lightheadedness, dizziness, or headaches. She denies any recent upper respiratory or urinary tract infection symptoms. She denies any abdominal pain. She continues to have right hip pain with weightbearing activities and activities of daily living. PHYSICAL EXAMINATION: General: Well-nourished, well-developed female in no apparent distress. She is alert, oriented, and cooperative. Mood and affect are appropriate. Vital signs: Height 63 inches, weight 202 pounds, temperature 97.7, blood pressure 140/82, heart rate 56, respirations 12. Heart: Regular rate and rhythm. Lungs: Clear to auscultation bilaterally. Breathing is regular and nonlabored. Abdomen: Soft and nontender. Bowel sounds present. Musculoskeletal: Right hip exhibits no gross abnormalities. Skin is intact. She has significantly decreased motion in all planes. Strength is 4+/5 secondary to pain and stiffness. Calf is soft and nontender with no palpable cords noted. No evidence of deep venous thrombosis (DVT). She is neurovascularly intact distally. LABORATORY DATA: Complete blood count: WBC 7.8, RBC, 4.45, hemoglobin decreased at 11.9, hematocrit 39.7, platelets 260. Prothrombin time 12.3, INR 0.90. Hemoglobin A1c 5.7. Chest x-ray: No focal consolidation or effusion. Right hip x-ray notable for end-stage degenerative changes. IMPRESSION: Right hip degenerative arthritis. PLAN: Patient has consented for an elective right total hip arthroplasty with Dr. Rivas for her continued symptoms. Medical optimization pending with Dr. Correa. Patient has her report time for surgery Monday and will report to [facility] by 6 a.m. She will be nothing by mouth after midnight with the exception of any medications her primary daycare provider instructed her to take the morning of surgery. She will follow her primary care managers recommendations for how to take her daily medications and when to stop anticoagulants. ALANA
[2020-01-06] VITALS (8 sets, daily range): BP systolic 105–138; BP diastolic 54–82
[~2020-01-06] VITALS: Ht 165.1 cm; Wt 93.0 kg
[~2020-01-06 05:59] MED LIST changes: -SM 88TAB PO; -TRAM50TA2 PO
[2020-01-06] MEDS ORDERED: LR 1,000 ML IV ONE (06:15)
[2020-01-06] MEDS ORDERED: ceFAZolin 2 GM/D5W 50 ML IV BAG (J0690 PER 500MG) As Ordered ONE (06:37)
[2020-01-06] MEDS ORDERED: ACETAMINOPHEN 500 MG TAB As Ordered ONE (06:38)
[2020-01-06] MEDS ORDERED: ACETAMINOPHEN 500 MG TAB PO ONE (06:45)
[2020-01-06] MEDS ORDERED: ceFAZolin SOD 2 GM in IV 1 EA IV ONE (06:45)
[2020-01-06] MEDS ORDERED: TRANEXAMIC ACID 100 MG/ML 10ML VIAL As Ordered ONE (07:16)
[2020-01-06] MEDS ORDERED: EPINEPHrine INJ 1 MG/ML 1ML AMP As Ordered ONE (07:17)
[2020-01-06] MEDS ORDERED: fentaNYL 100 MCG/2 ML INJECTION (J3010) As Ordered ONE (07:17)
[2020-01-06] MEDS ORDERED: MIDAZOLAM INJ 2MG/2ML VIAL (J2250 PER 1MG) As Ordered ONE (07:17)
[2020-01-06] MEDS ORDERED: ONDANSETRON 4MG/2ML VIAL As Ordered ONE (07:17)
[2020-01-06] MEDS ORDERED: ceFAZolin 1GM VIAL (J0690 PER 500MG) As Ordered ONE (07:17)
[2020-01-06] MEDS ORDERED: LIDOCAINE 2% 100MG/5ML SDV (FOR ANES.) As Ordered ONE (07:17)
[2020-01-06] MEDS ORDERED: propofoL 200 MG/20 ML VIAL As Ordered ONE (07:17)
[2020-01-06] MEDS ORDERED: ePHEDrine SULFATE 25 MG/5 ML(5MG/ML) SYRINGE As Ordered ONE ×2 (08:10→08:52)
[2020-01-06] MEDS ORDERED: ACETAMINOPHEN 1000MG 100ML IV BTL (OFIRMEV) (J0131 PER 10MG) As Ordered ONE (08:29)
[2020-01-06] MEDS ORDERED: PHENYLephrine HCL 500 MCG/5 ML (100MCG/ML) SYRINGE (J2370) As Ordered ONE (08:40)
[2020-01-06] MEDS ORDERED: LACRILUBE (AKWA TEARS) OPHTH OINT 3.5 GM As Ordered ONE (09:00)
[2020-01-06] MEDS ORDERED: LR 1,000 ML IV SCH (10:00)
[2020-01-06] MEDS ORDERED: ACETAMINOPHEN TAB 650MG DOSE (2X325MG) PO PRN (10:00)
[2020-01-06] MEDS ORDERED: MORPHINE 2 MG/ML 1ML VIAL (J2270) IV PRN (10:00)
[2020-01-06] MEDS ORDERED: PERCOCET 5MG/325MG TAB PO PRN ×4 (10:00→14:45)
[2020-01-06] MEDS: LR 1,000 ML IV SCH ×2 (10:00→20:00)
[2020-01-06] MEDS ORDERED: ONDANSETRON 4MG/2ML VIAL IV PRN ×2 (10:00)
[2020-01-06] MEDS: oxyCODONE 5MG TAB PO PRN ×2 (10:38→11:08)
[2020-01-06] MEDS: fentaNYL 100 MCG/2 ML INJECTION (J3010) IV PRN ×4 (10:41→10:59)
[2020-01-06] MEDS ORDERED: oxyCODONE 5MG TAB As Ordered ONE (11:01)
[2020-01-06] MEDS ORDERED: KETOROLAC 30 MG/ML 1ML VIAL IV ONE (14:30)
[2020-01-06] MEDS ORDERED: KETOROLAC 30 MG/ML 1ML VIAL As Ordered ONE (14:34)
[2020-01-06] MEDS: ceFAZolin SOD 2 GM in IV 1 EA IV SCH (16:16)
[2020-01-06] MEDS ORDERED: CYCLOBENZAPRINE 10MG TABLET PO PRN (17:30)
--- NOTE | 2020-01-06 17:33 | CR.PDOC ---
General Date of Consultation: Jan 06, 2020 Consultation REASON FOR CONSULTATION/CHIEF COMPLAINT: Medical management HISTORY OF PRESENT ILLNESS: Patient 64 years old female with past history of hypertension, bladder cancer, was arthritis, presented to the hospital for elective hip replacement. The surgery was done today, patient tolerated it well. Patient denied fever, chills, nausea, vomiting, diarrhea or dysuria ALLERGIES: Please see below. HOME MEDICATIONS: Please see below. PAST MEDICAL HISTORY: Hypertension, migraines, thyroid disease, recurrent bladder cancer. PAST SURGICAL HISTORY: Tonsillectomy, bladder surgery times two, dilatation and curettage (D and C), eye surgery, and right thumb surgery FAMILY HISTORY: I personally reviewed family history and found not pertinent SOCIAL HISTORY: Marital status and/or living arrangements: Patient denies history of smoking or EtOH abuse or drug abuse REVIEW OF SYSTEMS: 10 point review system negative except as listed above PHYSICAL EXAMINATION: GENERAL APPEARANCE: NAD HEENT: no scleral icterus, no JVD, EOMI CARDIOVASCULAR: S1S2 LUNGS: CTA ABDOMEN: soft & not tender w palpitation MUSCULOSKELETAL: no cyanosis, no swelling INTEGUMENT: no generalized palor NEUROLOGICAL: cranial nerve function from 2-12 intact intact, follows commands, speech not dysarthric LABORATORY DATA: Please see below. ASSESSMENT/PLAN: Patient 64 years old female with past history of hypertension, bladder cancer, was arthritis, presented to the hospital for elective hip replacement. The barajas rgery was done today, patient tolerated it well. Patient denied fever, chills, nausea, vomiting, diarrhea or dysuria Hypertension Blood pressures under control Continue home cardioprotective medication Status post hip replacement Ortho surgical team follows her Pain management Bladder cancer Follow-up with urologist in the outpatient settings Hypothyroidism Levothyroxine Vital Signs/I&O Vital Signs Date Time Temp Pulse Resp B/P (MAP) Pulse Ox O2 Delivery O2 Flow Rate FiO2 01/06/20 16:00 98.6 60 18 134/78 (96) 97 Room Air 01/06/20 11:08 2.0 Allergies Coded Allergies: adhesive (Verified Allergy, Unknown, BLISTERS, 09/27/19) Home Medications Scheduled Aspirin (Ecotrin) 81 Mg Tablet.dr, 81 MG PO DAILY, (Reported) Gabapentin (Neurontin) 600 Mg Tablet, 600 MG PO BID, (Reported) Levothyroxine Sodium (Levo-T) 300 Mcg Tab, 300 MCG PO DAILY, (Reported) every other day 1 tab, every other day 1/2 tab Meloxicam (Meloxicam) 7.5 Mg Tablet, 7.5 MG PO DAILY, (Reported) Oxybutynin Chloride (Oxybutynin Chloride ER) 5 Mg Tab.er.24, 5 MG PO DAILY, (Reported) Propranolol HCl (Propranolol HCl) 20 Mg Tab, 20 MG PO BID, (Reported) Ropinirole HCl (Ropinirole HCl) 2 Mg Tab, 2 MG PO BID, (Reported) Verapamil HCl (Verapamil HCl) 40 Mg Tab, 40 MG PO TID, (Reported) Scheduled PRN Acetaminophen (Acetaminophen) 500 Mg Tablet, 1,000 MG PO Q6HP PRN for PAIN, (Reported) Cyclobenzaprine HCl (Cyclobenzaprine HCl) 10 Mg Tablet, 10 MG PO PRN PRN for PAIN, (Reported) MARICARMEN OSORIO DO Jan 06, 2020 17:33
[2020-01-06] MEDS: rOPINIRole 1MG TAB PO SCH (20:08)
[2020-01-06] MEDS: ASPIRIN 81 MG CHEW TABLET PO SCH (20:08)
[2020-01-06] MEDS: VERAPAMIL 40 MG TAB PO SCH (20:08)
[2020-01-06] MEDS: PROPRANOLOL 20 MG TAB PO SCH (20:08)
[2020-01-06] MEDS ORDERED: CYCLOBENZAPRINE 10MG TABLET PO SCH (21:00)
[2020-01-07] MEDS: ceFAZolin SOD 2 GM in IV 1 EA IV SCH ×2 (00:58→07:55)
[2020-01-07 02:00] VITALS: BP 131/65
[2020-01-07 06:00] VITALS: BP 121/72
[2020-01-07] MEDS ORDERED: LEVOTHYROXINE 150MCG TABLET (0.15MG) PO SCH (06:00)
[2020-01-07] MEDS ORDERED: ACETAMINOPHEN 500 MG TAB PO PRN (06:15)
[2020-01-07] MEDS ORDERED: traMADol 50 MG TAB PO PRN ×2 (06:15)
[2020-01-07] MEDS ORDERED: ECOT81TA5 PO (06:24)
[2020-01-07] MEDS ORDERED: SM 88TAB PO (06:24)
[2020-01-07] MEDS ORDERED: TRAM50TA2 PO (06:24)
[2020-01-07 06:55] LABS: HEMATOCRIT 35.6 % (36.0-47.0); HEMOGLOBIN 10.9 g/dl (12.0-15.5); MEAN CORPUSCULAR HGB CONC 30.6 g/dl (32.0-36.5); MEAN CORPUSCULAR VOLUME 88.1 fl (80.0-96.0); PLATELET COUNT, AUTOMATED 214 10^3/uL (150-450); RED BLOOD COUNT 4.04 10^6/uL (4.00-5.40); WHITE BLOOD COUNT 11.5 10^3/uL (4.0-10.0)
[2020-01-07 07:14] LABS: ALBUMIN 2.9 GM/DL (3.2-5.2); BILIRUBIN,TOTAL 0.4 MG/DL (0.2-1.0); CALCIUM LEVEL 9.5 MG/DL (8.8-10.2); CREATININE FOR GFR 1.22 MG/DL (0.55-1.30); GLOMERULAR FILTRATION RATE 46.9 (>45); POTASSIUM SERUM 4.3 MEQ/L (3.5-5.1); TOTAL PROTEIN 6.9 GM/DL (6.4-8.2)
[2020-01-07] MEDS: ASPIRIN 81 MG CHEW TABLET PO SCH (07:55)
[2020-01-07] MEDS: rOPINIRole 1MG TAB PO SCH (07:55)
[2020-01-07] MEDS: PROPRANOLOL 20 MG TAB PO SCH (07:56)
[2020-01-07 07:57] VITALS: BP 120/70
[2020-01-07] MEDS: VERAPAMIL 40 MG TAB PO SCH (07:57)
[2020-01-07] MEDS ORDERED: MELOXICAM (MOBIC) 7.5 MG TAB PO SCH (09:00)
[2020-01-07] MEDS ORDERED: MOM 30ML SUSPENSION UDC PO SCH (09:00)
[2020-01-07] MEDS ORDERED: oxyBUTYnin *DITROPAN XL* 5 MG TABCR PO SCH (09:00)
[2020-01-07] MEDS ORDERED: MIRALAX *UNIT DOSE* 17GM PACKET PO SCH (09:00)
[2020-01-07] MEDS ORDERED: ASPIRIN 81 MG ENTERIC TAB PO SCH (09:00)
[2020-01-07 10:00] VITALS: BP 126/59
--- NOTE | 2020-01-20 12:08 | RO ---
DATE OF OPERATION: 01/06/2020 PREOPERATIVE DIAGNOSIS: Right hip degenerative arthritis. POSTOPERATIVE DIAGNOSIS: Right hip degenerative arthritis. PROCEDURE: Right total hip arthroplasty using a size 8 Dickinson standard offset stem with a 1.5 neck, 36 mm head and a 52 mm GRIPTION cup with a 36 mm neutral liner. SURGEON: Kayleigh Rivas M.D. WELDING INSTRUCTOR: TOM Chilel ANESTHESIA: Spinal. COMPLICATIONS: None. ESTIMATED BLOOD LOSS: 200 mL. SPECIMENS: None. DESCRIPTION OF PROCEDURE: Antibiotics were given intravenously preoperatively. Successful spinal anesthetic was induced. Cotter catheter was placed because of her troubles with holding her urination because of her radiation to the bladder. She was turned into the lateral decubitus position, right hip upper most. The [place] hip positioner was utilized. The right hip area was then carefully prepped and draped in the usual sterile fashion. Then, after an appropriate timeout, a longitudinal incision was made for a direct anterior approach to the hip. Bovie cautery was used to coagulate the crossing vessels down to the tensor fascia which was divided in line with the skin incision. We split the gluteus medius at the anterior one-third and posterior two-thirds junction, dissected the underlying gluteus minimus, carefully dissected off the proximal femur as we externally rotated the hip and dislocated the hip anteriorly. Piriformis fossa was identified. Starter reamer placed followed by the canal finding reamer, then the lateralizing reamer, and then we reamed up to a size #8. Femoral neck osteotomy was performed. We broached up to a size 8 that fit nicely. We used the calcar planer and then removed the broach, exposed the acetabulum and performed a labral excision 360 degrees. Then, we began reaming, beginning at 47 mm, advancing in 1 mm increments to 51. The trial 52 cup fit nicely. We used the extramedullary alignment jig to set our version and abduction, and then we copiously irrigated and then implanted the real GRIPTION cup using the alignment jig again. We copiously irrigated out the cup and then placed the polyethylene liner making sure it was seated properly. Then we did a trial reduction using a #8 broach once again after copiously irrigating out the femoral canal before placing the broach again. The range of motion was excellent with flexion internal rotation and extension external rotation withminimal soft tissue telescoping. Thus, I felt that this was the appropriate size prosthesis to use. We removed the broach, copiously irrigated out the femoral canal again and then placed the real #8 stem, dried the trunnion, placed the 1.5 x 36 ball and then reduced the hip again. Copiously irrigating again, closed the anterior capsule and the gluteus minimus back anatomically with #1 PDS sutures, irrigated between layers and then place some tranexamic acid deep within the hip joint, and then closed the gluteus medius back anatomically with interrupted #1 PDS sutures irrigating between layers and then placed more tranexamic acid and then closed the tensor fascia distally with two #1 PDS sutures and then a running #1 STRATAFIX. We copiously irrigated the subdermal tissues, closed them with interrupted 2-0 PDS sutures and the skin was closed with eduar, covered by Optifoam and a dry sterile bulky dressing. She was then turned supine and transferred to the recovery room in stable condition. There were no intraoperative complications. ALANA
--- NOTE | 2020-01-21 13:34 | DSES ---
DATE OF ADMISSION: 01/06/2020 DATE OF DISCHARGE: 01/07/2020 ATTENDING PHYSICIAN: Kayleigh Rivas M.D. ADMITTING DIAGNOSIS: Osteoarthritis right hip. OTHER DIAGNOSES: Hypothyroidism, history of recurrent bladder cancer, hypertension and migraines. DISCHARGE DIAGNOSIS: Osteoarthritis right hip, status post right total hip arthroplasty. OPERATION PERFORMED: Right total hip arthroplasty. HISTORY OF PRESENT ILLNESS: A 64-year-old female patient with progressively worsening right hip pain and stiffness. She failed to improve with conservative management. She was admitted for elective hip replacement on the right side. HOSPITAL COURSE: Patient was admitted on the day of surgery and underwent a right total hip arthroplasty, which was uneventful. She did well in the postoperative period and her hospital course was without complications. She was up with physical therapy per their protocol. Her pain was controlled on the day of discharge. She is weightbearing as tolerated on her right lower extremity. She will use oral pain medications for pain control. She will use GURMEET stockings for 30 days postoperatively for DVT prophylaxis. She will use aspirin 81 mg b.i.d. also for DVT prophylaxis per their protocol. She will resume her preoperative medications and diet. She will follow-up in our office in 10-14 days for surgical follow-up. She was given instructions to include but not limited to wound monitoring and activity limitations. Please refer to the medical record for further details. ALANA
--- NOTE | 2020-01-23 17:08 | REP ---
RIGHT HIP SERIES CLINICAL: Status post arthroplasty. TECHNIQUE: Portable AP and lateral views of the right hip. FINDINGS: The patient is status post right hip replacement with normal appearance and positioning to the femoral and acetabular components. Overlying postsurgical changes are appreciated. IMPRESSION: Status post right hip replacement. MTDD
== END 2020-01-07 11:50 | disposition home health service (06) | DRG 470 ==
LOC: M OR 05:59 → M MS5PR 11:25
PROVIDERS: ADMIT Orthopaedic Surgery; ATTEND Orthopaedic Surgery
PROC: 0SR902Z Replacement of Right Hip Joint with Metal on Polyethylene Synthetic Substitute, Open Approach (ICD-10-PCS; principal; 2020-01-06 07:30)
DX: M16.11 Unilateral primary osteoarthritis, right hip (principal); I10 Essential (primary) hypertension; G43.909 Migraine, unspecified, not intractable, without status migrainosus; E03.9 Hypothyroidism, unspecified; Z85.51 Personal history of malignant neoplasm of bladder; Z88.2 Allergy status to sulfonamides; Z79.82 Long term (current) use of aspirin; Z79.899 Other long term (current) drug therapy

== ENCOUNTER → 2020-02-10 | Outpatient (REF) | payer MEDICARE ==
[~2020-02-10] MED LIST changes: +OXYB10TA23 PO; +SM 88TAB PO; +TRAM50TA2 PO
== END ==
LOC: M SMT 16:46
PROVIDERS: ATTEND Urology
DX: C67.9 Malignant neoplasm of bladder, unspecified (principal); N39.0 Urinary tract infection, site not specified

== ENCOUNTER → 2020-02-13 | Outpatient (REF) | payer MEDICARE ==
[~2020-02-13] MED LIST changes: -OXYB10TA23 PO
== END ==
LOC: M SMT 12:52
PROVIDERS: ATTEND Urology
DX: N39.0 Urinary tract infection, site not specified (principal)

== ENCOUNTER → 2020-05-11 | Outpatient (REF) | payer MEDICARE ==
[~2020-05-11] MED LIST changes: +ACET650T3 PO; +CLIN300C6 PO; +OXYB10TA23 PO
== END ==
LOC: M SMT 17:10
PROVIDERS: ATTEND Urology
DX: C67.9 Malignant neoplasm of bladder, unspecified (principal)

== ENCOUNTER → 2020-08-10 | Outpatient (REF) | payer MEDICARE ==
[~2020-08-10] MED LIST changes: +AUGM0.0534 EX; +CEPH25SS PO; +HYDR-4570 PO; +LEVO200T4 PO; +PRED5TA PO
== END ==
LOC: M SMT 16:43
PROVIDERS: ATTEND Urology
DX: C67.9 Malignant neoplasm of bladder, unspecified (principal)

== ENCOUNTER → 2020-11-06 | Outpatient (CLI) | payer MEDICARE ==
[~2020-11-06] MED LIST changes: +AUGM875T28 PO; +BACTDSTA PO; +PRED50TA; -SULF1TAB93 PO
[2020-11-06 17:05] LABS: BASO # 0.1 10^3/uL (0.0-0.2); BASO % 0.8 % (0.0-1.0); EOS # 0.7 10^3/uL (0.0-0.5); HEMATOCRIT 36.3 % (36.0-47.0); HEMOGLOBIN 10.8 g/dl (12.0-15.5); LYMPH # 1.3 10^3/uL (1.5-5.0); LYMPH % 14.1 % (24.0-44.0); MEAN CORPUSCULAR HEMOGLOBIN 24.8 pg (27.0-33.0); MEAN CORPUSCULAR HGB CONC 29.8 g/dl (32.0-36.5); MEAN CORPUSCULAR VOLUME 83.3 fl (80.0-96.0); MONO # 0.8 10^3/uL (0.0-0.8); MONO % 8.8 % (2.0-8.0); NEUTROPHILS # 6.2 10^3/uL (1.5-8.5); PLATELET COUNT, AUTOMATED 332 10^3/uL (150-450); RED BLOOD COUNT 4.36 10^6/uL (4.00-5.40); WHITE BLOOD COUNT 9.2 10^3/uL (4.0-10.0)
[2020-11-06 17:41] LABS: ERYTHROCYTE SEDIMENTATION RATE 26 mm/hr (0-30)
== END ==
LOC: M LAB 16:31
PROVIDERS: ATTEND Orthopaedic Surgery
DX: Z96.641 Presence of right artificial hip joint (principal)

== ENCOUNTER → 2020-11-19 | Outpatient (CLI) | payer MEDICARE ==
--- NOTE | 2020-11-19 12:06 | REP ---
INDICATION: PRESENCE OF RT ARTIVICIAL HIP JOINT ? FX. COMPARISON: CT 04/10/2019 TECHNIQUE: Soft tissue and bone window settings with the orthopedic metal artifact reduction algorithm utilized due to a right total hip arthroplasty. FINDINGS: Bone windows show facet arthropathy and degenerative disc change at L5-S1 with vacuum phenomenon there is spondylosis and spondylolisthesis of L4 on L5 without spondylolysis. Sacral ala and foramina symmetric with some vacuum phenomenon in the SI joints. No sacral fracture identified. The iliac bones show small bone island in the acetabular roof on the left without fracture right iliac bone grossly intact. There is osteoarthritic change at the left hip rim osteophyte acetabular roof. No fracture or AVN. There is a synovial herniation pit along superior aspect of the hip at the junction of the femoral head and neck, representing benign finding. There is a interval right total hip arthroplasty although not acute. No subluxation or dislocation and alignment of the 2 components of the prosthesis with the [place] bone and each other is preserved. I do not see evidence of a fracture about the femoral stem component. The inferior tip of the femoral stem is not seen on the axial images but is confirmed on the electrical estimator image with the adjacent femoral cortex normal throughout. Is no subluxation dislocation hip joint prosthesis. There are a couple of soft tissue calcifications adjacent to the acetabular roof there are not present on the previous study and may be sequela of surgery or trauma. I do not see significant soft tissue swelling or hematoma here. The slight contour irregularity of the right acetabular margin superiorly as on the previous study is unchanged. I could not entirely exclude an acute or subacute avulsion. Pubic rami and symphysis pubis are unremarkable. Soft tissues in lower pelvis including the small bowel loops, distal left colon, sigmoid, rectum, bladder, uterus cecum were unremarkable. No appendix is seen. No ventral or inguinal hernia. IMPRESSION: 1. Status post right total hip arthroplasty since the previous CT in 04/11. Alignment of the 2 components with each other and the [place] bone normal. Small curvilinear ossific or calcific density adjacent to the acetabular roof may be acute avulsion or postsurgical change. However I do not see significant evidence for hematoma here. Intrapelvic soft tissues and organs grossly unremarkable. 2. Degenerative changes of the left hip, lower lumbar spine and facets and SI joints. No destructive lesion. Please see dedicated right hip CT for further details. <Electronically signed by Jose Jenkins > 11/19/20 [id number]
--- NOTE | 2020-11-19 12:11 | REP ---
INDICATION: PRESENCE OF RT ARTIVICIAL HIP JOINT ? FX. COMPARISON: CT pelvis without 11/19/2020 TECHNIQUE: Axial soft tissue and bone window settings provided with the coronal and sagittal bone window reconstructions. Orthopedic metal artifact reduction algorithm with used for the axial bone window. FINDINGS: Two components of the right total hip arthroplasty are well aligned in relationship to each other and the [place] bone. There is a subtle curvilinear ossific density about 12 mm at the peripheral margin acetabular roof without significant hematoma or soft tissue swelling this is more likely to be post surgical sequela. There is no similar finding on a preoperative CT in 2019. The anterior and posterior columns of the acetabulum, visualized portion of iliac wing SI joints in the right pubic rami and symphysis pubis were all unremarkable. The hamstring tendon insertions are unremarkable. The entire of femoral shaft following the course of the femoral stem component of the prosthesis is without evidence of fracture or avulsion there is no evidence abnormal loosening. IMPRESSION: 1. Curvilinear ossific density about 12 mm long, quite thin and likely postoperative sequela as it was not present on the preoperative study and there is no definite hematoma adjacent to it. It is paralleling the acetabular roof above the surgical site. 2. Right total hip arthroplasty with the 2 components well aligned in relationship to each other and the [place] bone. No evidence of abnormal lucency adjacent to the femoral stem nor fracture line. Acetabular columns, visualized iliac bone and pubic rami were unremarkable. <Electronically signed by Jose Jenkins > 11/19/20 [id number]
== END ==
LOC: M RAD 11:22
PROVIDERS: ATTEND Orthopaedic Surgery
DX: Z96.641 Presence of right artificial hip joint (principal)

== ENCOUNTER → 2020-11-30 | Outpatient (CLI) | payer MEDICARE ==
[~2020-11-30] MED LIST changes: +ASPI81TA26 PO; +CEPH500C; +CLIN-250 PO; -CLIN300C6 PO; +D31000TA2 PO; +FURO40TA2; +IRON65TA2 PO
== END ==
LOC: M RAD 08:00
PROVIDERS: ATTEND Orthopaedic Surgery
DX: R93.7 Abnormal findings on diagnostic imaging of other parts of musculoskeletal system (principal)
CPT/HCPCS: 78315; A9503

== ENCOUNTER → 2020-12-22 | Outpatient (REF) | payer MEDICARE ==
[~2020-12-22] MED LIST changes: -ASPI81TA26 PO; -CEPH500C; -CLIN-250 PO; +CLIN300C6 PO; -D31000TA2 PO; -FURO40TA2; -IRON65TA2 PO
== END ==
LOC: M SMT 18:42
PROVIDERS: ATTEND Urology
DX: C67.9 Malignant neoplasm of bladder, unspecified (principal)

== ENCOUNTER → 2021-01-15 | Outpatient (CLI) | payer MEDICARE ==
[~2021-01-15] MED LIST changes: +ASPI81TA26 PO; +D31000TA2 PO
[2021-01-15 12:16] LABS: HEMATOCRIT 36.5 % (36.0-47.0); MEAN CORPUSCULAR HEMOGLOBIN 25.5 pg (27.0-33.0); MEAN CORPUSCULAR HGB CONC 30.1 g/dl (32.0-36.5); MEAN CORPUSCULAR VOLUME 84.7 fl (80.0-96.0); PLATELET COUNT, AUTOMATED 253 10^3/uL (150-450); RED BLOOD COUNT 4.31 10^6/uL (4.00-5.40); WHITE BLOOD COUNT 6.5 10^3/uL (4.0-10.0)
--- NOTE | 2021-01-15 12:29 | REP ---
INDICATION: MALIGNANT NEOPLASM OF BLADDER, UNSPECIFIED/LABS 1ST, EKG 2ND. COMPARISON: Multiple the latest 12/26/2019 TECHNIQUE: PA and lateral FINDINGS: The superior mediastinal structures are midline. The cardiac silhouette is unremarkable in size, shape, and position. The diaphragmatic surfaces of the lungs are regular, and the costophrenic angles are clear. The pulmonary augustine are clear. The imaged osseous structures are intact. IMPRESSION: There is no acute cardiopulmonary disease. <Electronically signed by Ronald German > 01/15/21 [id number]
[2021-01-15 12:43] LABS: BLOOD UREA NITROGEN 40 MG/DL (7-18); CALCIUM LEVEL 10.8 MG/DL (8.8-10.2); CARBON DIOXIDE LEVEL 31 MEQ/L (21-32); CHLORIDE LEVEL 106 MEQ/L (98-107); CREATININE FOR GFR 0.77 MG/DL (0.55-1.30); GLOMERULAR FILTRATION RATE > 60.0 (>45); GLUCOSE, FASTING 90 MG/DL (70-100); POTASSIUM SERUM 4.7 MEQ/L (3.5-5.1); SODIUM LEVEL 141 MEQ/L (136-145)
--- NOTE | 2021-01-15 13:50 | ECGEPIP ---
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
== END ==
LOC: M LAB 11:39
PROVIDERS: ATTEND Urology
DX: Z01.818 Encounter for other preprocedural examination (principal); C67.9 Malignant neoplasm of bladder, unspecified; G25.81 Restless legs syndrome

== ENCOUNTER → 2021-01-15 | Outpatient (CLI) | payer MEDICARE ==
[2021-01-15 12:38] LABS: MAGNESIUM LEVEL 2.2 MG/DL (1.8-2.4)
== END ==
LOC: M LAB 11:35
PROVIDERS: ATTEND Physician Assistant Medical
DX: G25.81 Restless legs syndrome (principal)

== ENCOUNTER → 2021-01-22 | Outpatient (REF) | payer MEDICARE | LOC: M SMT 13:49 | PROVIDERS: ATTEND Urology | DX: Z01.818 Encounter for other preprocedural examination (principal); C67.9 Malignant neoplasm of bladder, unspecified; N39.0 Urinary tract infection, site not specified ==

== ENCOUNTER → 2021-01-25 | Outpatient (CLI) | payer MEDICARE | LOC: M LABSMTC 10:20 | PROVIDERS: ATTEND Anesthesiology | DX: Z01.812 Encounter for preprocedural laboratory examination (principal); Z20.822 Contact with and (suspected) exposure to COVID-19 ==

== ENCOUNTER → 2021-01-26 | Outpatient (REF) | payer MEDICARE ==
[2021-01-26 14:07] LABS: APPEARANCE, URINE CLEAR (CLEAR); BACTERIA, URINE AUTO NEGATIVE (NEGATIVE); BILIRUBIN, URINE AUTO NEGATIVE (NEGATIVE); BLOOD, URINE BLOOD NEGATIVE (NEGATIVE); CALCIUM OXALATE CRYSTALS SMALL; COLOR, URINE YELLOW (YELLOW); GLUCOSE, URINE (UA) AUTO NEGATIVE (NEGATIVE); KETONE, URINE AUTO NEGATIVE (NEGATIVE); LEUKOCYTE ESTERASE, URINE AUTO NEGATIVE (NEGATIVE); NITRITE, URINE AUTO NEGATIVE (NEGATIVE); PROTEIN, URINE AUTO NEGATIVE (NEGATIVE); RBC, URINE AUTO 7 /HPF (0-3); SPECIFIC GRAVITY URINE AUTO 1.018 (1.002-1.035); SQUAMOUS EPITHELIAL CELL UR AU 1 /HPF (0-6); UROBILINOGEN, URINE AUTO 0.2 mg/dL (0.0-2.0); WBC, URINE AUTO 8 /HPF (0-3)
== END ==
LOC: M SMT 13:13
PROVIDERS: ATTEND Urology
DX: Z01.818 Encounter for other preprocedural examination (principal); C67.9 Malignant neoplasm of bladder, unspecified; N39.0 Urinary tract infection, site not specified

== ENCOUNTER 2021-01-29 06:08 | Day surgery (SDC) | payer MEDICARE ==
[~2021-01-29] VITALS: Ht 167.6 cm; Wt 74.8 kg
[~2021-01-29 06:08] MED LIST changes: +LR 1,000 ML IV ONE; +ceFAZolin SOD 2 GM in IV 1 EA IV ONE
[2021-01-29] MEDS ORDERED: MIDAZOLAM INJ 2MG/2ML VIAL (J2250 PER 1MG) As Ordered ONE (07:05)
[2021-01-29] MEDS ORDERED: fentaNYL 100 MCG/2 ML INJECTION (J3010) As Ordered ONE (07:07)
[2021-01-29] MEDS ORDERED: ROCURONIUM BROMIDE 50 MG/5 ML VIAL As Ordered ONE ×2 (07:09→08:08)
[2021-01-29] MEDS ORDERED: LIDOCAINE 2% 100MG/5ML SDV (FOR ANES.) As Ordered ONE (07:09)
[2021-01-29] MEDS ORDERED: dexameTHASONE 4 MG/ML 1ML VIAL (J1100 PER 1MG) As Ordered ONE (07:10)
[2021-01-29] MEDS ORDERED: ACETAMINOPHEN 1000MG 100ML IV BTL (OFIRMEV) (J0131 PER 10MG) As Ordered ONE (07:11)
[2021-01-29] MEDS ORDERED: propofoL 200 MG/20 ML VIAL As Ordered ONE (07:57)
[2021-01-29] MEDS ORDERED: ePHEDrine SULFATE 25 MG/5 ML(5MG/ML) SYRINGE As Ordered ONE (07:57)
[2021-01-29] MEDS ORDERED: SUGAMMADEX SODIUM 500 MG/5 ML VIAL (BRIDION) As Ordered ONE (08:01)
[2021-01-29] MEDS ORDERED: ONDANSETRON 4MG/2ML VIAL As Ordered ONE (08:01)
[2021-01-29] MEDS ORDERED: METOCLOPRAMIDE INJ 10MG/2ML VIAL (J2765 PER 1) As Ordered ONE (08:02)
[2021-01-29] MEDS ORDERED: oxyCODONE 5MG TAB PO PRN (08:40)
[2021-01-29] MEDS ORDERED: ONDANSETRON 4MG/2ML VIAL IV PRN (08:40)
[2021-01-29] MEDS ORDERED: LR 1,000 ML IV SCH (08:40)
[2021-01-29] MEDS ORDERED: ACETAMINOPHEN TAB 650MG DOSE (2X325MG) PO PRN (08:40)
[2021-01-29] MEDS ORDERED: fentaNYL 100 MCG/2 ML INJECTION (J3010) IV PRN (08:40)
[2021-01-29] MEDS ORDERED: MEPERIDINE INJ 25 MG/ML VIAL (J2175) IV PRN (08:40)
--- NOTE | 2021-01-29 08:56 | RO ---
OPERATIVE NOTE DATE OF OPERATION: 01/29/2021 PREOPERATIVE DIAGNOSIS: Bladder cancer. POSTOPERATIVE DIAGNOSIS: Bladder cancer. PROCEDURE: Cystoscopy; transurethral resection of bladder tumors (between 2 and 5 cm). SURGEON: Hansel Lozano MD RUBBER PROCESS HAND: None. ANESTHESIA: General. OPERATIVE INDICATIONS: This is a 65-year-old female with history of low grade bladder cancer with several recurrences despite BCG. She has recently been treated with Keytruda immunotherapy and was found to have another recurrence. She was brought to the operating room today for treatment. DESCRIPTION OF PROCEDURE: The patient was brought to the operating room and general anesthesia was induced. Prophylactic antibiotics were infused. She was placed in the dorsal lithotomy position and prepped and draped in the usual sterile fashion. A resectoscope was inserted in the urethral meatus and advanced into the bladder. The bladder was thoroughly examined. There was a collection of papillary tumors seen just inside the bladder neck from about 9 o'clock to 12 o'clock. No other tumors were seen. All these tumors were resected using a bipolar loop. Once all tumors were resected they were drained out of the bladder and the areas of resection were cauterized using the coagulation current. Once satisfied that all the tumors were removed and there was good hemostasis this marked the conclusion of the procedure. The resectoscope was removed and an 18-[place] Cotter catheter was inserted into the bladder. The balloon was filled with 10 mL sterile water and the catheter was connected to gravity drainage. This marked the conclusion of the procedure. The patient was taken out of the dorsal lithotomy position, awaked from anesthesia and transferred to the recovery room in stable condition. ESTIMATED BLOOD LOSS: 5 mL. COMPLICATIONS: None. SPECIMEN: Bladder tumors. PLAN: The patient will follow up in urology clinic next week for catheter removal and to discuss pathology results. ALANA
[2021-01-29 09:15] VITALS: BP 136/62
== END 2021-01-29 10:06 | disposition home or self-care (01) ==
LOC: M SDC 06:08
PROVIDERS: ATTEND Urology
DX: C67.9 Malignant neoplasm of bladder, unspecified (principal); I10 Essential (primary) hypertension; E03.9 Hypothyroidism, unspecified; Z79.82 Long term (current) use of aspirin; Z79.899 Other long term (current) drug therapy; Z92.21 Personal history of antineoplastic chemotherapy; Z86.73 Personal history of transient ischemic attack (TIA), and cerebral infarction without residual deficits
CPT/HCPCS: 52235; 88305; J0131; J0690; J2250; J2405; J2765; J3010

== ENCOUNTER → 2021-02-09 | Outpatient (CLI) | payer MEDICARE ==
[~2021-02-09] MED LIST changes: +CLIN-250 PO; -CLIN300C6 PO; +ISOVUE-370 76% 100ML VIAL As Ordered ONE; -LR 1,000 ML IV ONE; -ceFAZolin SOD 2 GM in IV 1 EA IV ONE
--- NOTE | 2021-02-09 11:53 | REP ---
INDICATION: BLADDER CA. COMPARISON: Multiple the latest 04/10/2019 TECHNIQUE: Standard helical technique before and after intravenous contrast FINDINGS: There is a stable 6 mm size nodule in the left lung base. No new abnormalities have developed. The pre contrast enhanced portion of the exam shows no change in the appearance of the hepatic or splenic densities. There is a cyst in the liver status quo. Gallbladder is unchanged. There is no evidence of cholelithiasis. There is a single 2 mm size calcification in the interpolar region of the left kidney which is unchanged and not causing obstructive phenomena. There are no right-sided nephroliths. There are no ureteroliths. There is no hydronephrosis or hydroureter. Beam hardening artifact from a right hip prosthesis obscures multiple pelvic images. No urinary bladder calculi are identified. There are bilateral pelvic phleboliths status quo. The contrast-enhanced portion examination shows the liver, gallbladder, spleen, pancreas, adrenal glands, and kidneys to appear stable. No enhancing abnormalities have developed. The abdominal aorta and para-aortic regions are again seen to be within normal limits. Nonenlarged lymph nodes are again noted status quo. There is no significant change in appearance of the bowel loops or the mesenteries. There is no evidence of a mass or adenopathy. There is no evidence of free fluid or free air. Delayed imaging throughout the exam shows no significant change in appearance of the renal collecting systems. Bone window technique throughout the examination shows no significant change in the osseous structures. IMPRESSION: There is no evidence of acute disease or significant change compared to the prior exam with findings as described above. <Electronically signed by Ronald German > 02/09/21 [id number]
== END ==
LOC: M RAD 10:54
PROVIDERS: ATTEND Urology
DX: C67.9 Malignant neoplasm of bladder, unspecified (principal); K76.89 Other specified diseases of liver; N20.0 Calculus of kidney
CPT/HCPCS: 74178; Q9967

== ENCOUNTER → 2021-02-15 | Outpatient (CLI) | payer MEDICARE ==
[~2021-02-15] MED LIST changes: -ISOVUE-370 76% 100ML VIAL As Ordered ONE
[2021-02-15 15:21] LABS: BASO # 0.1 10^3/uL (0.0-0.2); BASO % 0.5 % (0.0-1.0); EOS # 1.9 10^3/uL (0.0-0.5); EOS % 19.6 % (0.0-3.0); HEMATOCRIT 37.8 % (36.0-47.0); HEMOGLOBIN 11.2 g/dl (12.0-15.5); LYMPH # 1.1 10^3/uL (1.5-5.0); LYMPH % 12.1 % (24.0-44.0); MEAN CORPUSCULAR HEMOGLOBIN 26.4 pg (27.0-33.0); MEAN CORPUSCULAR HGB CONC 29.6 g/dl (32.0-36.5); MEAN CORPUSCULAR VOLUME 88.9 fl (80.0-96.0); MONO # 0.4 10^3/uL (0.0-0.8); MONO % 4.2 % (2.0-8.0); NEUTROPHILS % 63.3 % (36.0-66.0); PLATELET COUNT, AUTOMATED 289 10^3/uL (150-450); RED BLOOD COUNT 4.25 10^6/uL (4.00-5.40); WHITE BLOOD COUNT 9.4 10^3/uL (4.0-10.0)
[2021-02-15 15:40] LABS: ERYTHROCYTE SEDIMENTATION RATE 6 mm/hr (0-30)
== END ==
LOC: M LAB 13:54
PROVIDERS: ATTEND Orthopaedic Surgery
DX: M25.551 Pain in right hip (principal)

== ENCOUNTER → 2021-03-02 | Outpatient (CLI) | payer MEDICARE ==
--- NOTE | 2021-03-03 12:29 | REP ---
INDICATION: RT HIP PAIN injury July 2019 in October 2019, pain COMPARISON: MRI 08/31/2018, bone scan 11/30/2020, CT 02/09/2021. TECHNIQUE: Coronal T1, STIR through the pelvis, axial, coronal, sagittal T2 fat sat right hip. FINDINGS: The metallic prosthesis of the right hip significantly limits the exam, causing extensive surrounding metallic artifact. The adjacent visualized pelvic osseous structures demonstrate no abnormal bone marrow signal. There is no abnormal signal in the region of the pubic symphysis, the superior right iliac bone, the visualized sacrum and left pelvic bones. The visualized soft tissue structures surrounding the right hip are grossly unremarkable, but again evaluation is extremely limited. No gross mass or free fluid is seen in the visualized pelvis. There are stable appearing degenerative changes at the left hip joint with small joint effusion. There are findings suggesting a [id number] degree of left-sided greater trochanteric tendonobursitis. IMPRESSION: Significantly limited MRI exam of the right hip due to artifact from the metallic right hip prosthesis. Osseous or soft tissue abnormalities directly adjacent to the prosthesis would be virtually impossible to visualize. Elsewhere in the visualized portions of the pelvis, there are stable appearing degenerative changes of the left hip joint with a small joint effusion. There are findings suggesting mild to moderate left-sided greater trochanteric tendonobursitis. <Electronically signed by Alex Ventura > 03/03/21 [id number]
== END ==
LOC: M PLAIMG 13:13
PROVIDERS: ATTEND Orthopaedic Surgery
DX: M25.551 Pain in right hip (principal); Z96.641 Presence of right artificial hip joint; M25.461 Effusion, right knee; M16.12 Unilateral primary osteoarthritis, left hip

== ENCOUNTER → 2021-03-04 | Outpatient (CLI) | payer MEDICARE ==
--- NOTE | 2021-03-04 16:07 | REP ---
INDICATION: SPONDYLOSIS LUMBAR REGION, R/O RAQDICULOPATHY. COMPARISON: None. TECHNIQUE: T1 and T2 weighted axial and sagittal images were obtained. FINDINGS: The lumbar vertebra are well maintained in height though disc space narrowing is seen throughout. L4 is anterior to L5 by 5 mm. It is uncertain if there is a pars defect. This could be evaluated with plain films. L1/2: The foramina are adequate bilaterally. Mild diffuse disc bulge is present. No herniation or spinal stenosis is present L2/3: The foramina are adequate bilaterally. No significant disc bulge, herniation or central canal stenosis is present. L3/4: The foramina are adequate bilaterally. No significant disc bulge is present. Facet joint arthropathy narrows the thecal sac to 7.5 mm in the AP diameter and 14 mm in inter pedicular diameter. No significant spinal stenosis is noted. L4/5: The foramina are adequate bilaterally. No significant disc bulge is identified. The listhesis and hypertrophic changes about the facet joints narrow the thecal sac to 7 mm in AP diameter and 9 mm in inter pedicular diameter which is significant. L5/S1: The foramina are adequate bilaterally. No significant disc bulge, herniation or central canal stenosis is present. IMPRESSION: Grade 1 listhesis of L4 on L5 with significant spinal stenosis at L4/5. <Electronically signed by Oscar Carreon > 03/04/21 [id number]
== END ==
LOC: M PLAIMG 14:44
PROVIDERS: ATTEND Orthopaedic Surgery
DX: M43.06 Spondylolysis, lumbar region (principal)

== ENCOUNTER → 2021-04-19 | Outpatient (CLI) | payer MEDICARE | LOC: M LAB 10:29 | PROVIDERS: ATTEND Physician Assistant Medical | DX: E61.1 Iron deficiency (principal) ==

== ENCOUNTER → 2021-04-19 | Outpatient (REF) | payer MEDICARE | LOC: M SMT 13:18 | PROVIDERS: ATTEND Urology | DX: C67.9 Malignant neoplasm of bladder, unspecified (principal); E61.1 Iron deficiency | CPT/HCPCS: 36415; 83540; 88108; G0463 ==

== ENCOUNTER → 2021-05-27 | Outpatient (CLI) | payer MEDICARE ==
[~2021-05-27] MED LIST changes: +GASTROGRAFIN SOLUTION 30ML (Q9963) As Ordered ONE; +ISOVUE-370 76% 100ML VIAL As Ordered ONE
== END ==
LOC: M RAD 09:31
PROVIDERS: ATTEND Internal Medicine Hematology & Oncology
DX: C67.9 Malignant neoplasm of bladder, unspecified (principal); K76.89 Other specified diseases of liver; N20.0 Calculus of kidney; I70.0 Atherosclerosis of aorta; Z96.641 Presence of right artificial hip joint; M25.78 Osteophyte, vertebrae
CPT/HCPCS: 74177; Q9963; Q9967

== ENCOUNTER → 2021-06-09 | Outpatient (CLI) | payer MEDICARE ==
[~2021-06-09] MED LIST changes: +CEPH500C; +FURO40TA2; -GASTROGRAFIN SOLUTION 30ML (Q9963) As Ordered ONE; +IRON65TA2 PO; -ISOVUE-370 76% 100ML VIAL As Ordered ONE; +PROHANCE 279.3MG/ML 15ML VIAL ONE; +PROHANCE 279.3MG/ML 5ML VIAL ONE
== END ==
LOC: M PLAIMG 13:26
PROVIDERS: ATTEND Internal Medicine Hematology & Oncology
DX: R42 Dizziness and giddiness (principal); R55 Syncope and collapse; C67.9 Malignant neoplasm of bladder, unspecified
CPT/HCPCS: 70553; A9576

== ENCOUNTER → 2021-06-28 | Outpatient (CLI) | payer MEDICARE ==
[~2021-06-28] MED LIST changes: -D31000TA2 PO; -PROHANCE 279.3MG/ML 15ML VIAL ONE; -PROHANCE 279.3MG/ML 5ML VIAL ONE; +VITA100093 PO
[2021-06-28 09:40] LABS: HEMOGLOBIN 14.3 g/dl (12.0-15.5); MEAN CORPUSCULAR HGB CONC 31.8 g/dl (32.0-36.5); MEAN CORPUSCULAR VOLUME 91.3 fl (80.0-96.0); PLATELET COUNT, AUTOMATED 217 10^3/uL (150-450); RED BLOOD COUNT 4.93 10^6/uL (4.00-5.40); WHITE BLOOD COUNT 9.1 10^3/uL (4.0-10.0)
[2021-06-28 10:13] LABS: ALBUMIN 3.4 GM/DL (3.2-5.2); ALT/SGPT 36 U/L (12-78); BILIRUBIN,TOTAL 0.3 MG/DL (0.2-1.0); BLOOD UREA NITROGEN 40 MG/DL (7-18); CARBON DIOXIDE LEVEL 27 MEQ/L (21-32); CHLORIDE LEVEL 109 MEQ/L (98-107); CHOLESTEROL LEVEL 168 MG/DL (<200); CREATININE FOR GFR 0.94 MG/DL (0.55-1.30); GLOMERULAR FILTRATION RATE > 60.0 (>45); GLUCOSE, FASTING 97 MG/DL (70-100); HDL CHOLESTEROL 75 MG/DL (>40); IRON (FE) 43 UG/DL (50-170); LDL CHOLESTEROL 70 MG/DL (<100); NON-HDL-C 93 MG/DL; PERCENT SATURATION 14.1 % (13.2-45.0); POTASSIUM SERUM 4.8 MEQ/L (3.5-5.1); SODIUM LEVEL 140 MEQ/L (136-145); THYROID STIMULATING HORMONE 0.019 uIU/ML (0.358-3.740); TOTAL IRON BINDING CAPACITY 306 UG/DL (250-450); TOTAL PROTEIN 6.9 GM/DL (6.4-8.2); TRIGLYCERIDES LEVEL 117 MG/DL (<150)
[2021-06-28 10:20] LABS: HEMOGLOBIN A1c 5.3 %
== END ==
LOC: M LAB 08:57
PROVIDERS: ATTEND Family Medicine
DX: I10 Essential (primary) hypertension (principal); E03.9 Hypothyroidism, unspecified; C67.9 Malignant neoplasm of bladder, unspecified; Z79.899 Other long term (current) drug therapy

== ENCOUNTER → 2021-07-13 | Outpatient (REF) | payer MEDICARE | LOC: M SMT 17:13 | PROVIDERS: ATTEND Urology | DX: C67.9 Malignant neoplasm of bladder, unspecified (principal) ==

== ENCOUNTER 2021-09-10 15:27 | Emergency (ER) | payer MEDICARE ==
[~2021-09-10] VITALS: Ht 167.6 cm; Wt 62.7 kg
[2021-09-10] MEDS ORDERED: LEVO175T2 (16:14)
[2021-09-10] MEDS ORDERED: PROP20TA72 (16:14)
[2021-09-10 18:59] LABS: BASO # 0.1 10^3/uL (0.0-0.2); BASO % 0.8 % (0.0-1.0); EOS # 0.4 10^3/uL (0.0-0.5); EOS % 4.8 % (0.0-3.0); HEMATOCRIT 42.4 % (36.0-47.0); HEMOGLOBIN 13.9 g/dl (12.0-15.5); LYMPH # 1.4 10^3/uL (1.5-5.0); LYMPH % 16.1 % (24.0-44.0); MEAN CORPUSCULAR HEMOGLOBIN 29.9 pg (27.0-33.0); MEAN CORPUSCULAR HGB CONC 32.8 g/dl (32.0-36.5); MEAN CORPUSCULAR VOLUME 91.2 fl (80.0-96.0); MONO # 0.7 10^3/uL (0.0-0.8); MONO % 8.3 % (2.0-8.0); PLATELET COUNT, AUTOMATED 304 10^3/uL (150-450); RED BLOOD COUNT 4.65 10^6/uL (4.00-5.40); WHITE BLOOD COUNT 8.6 10^3/uL (4.0-10.0)
[2021-09-10 19:20] LABS: BLOOD UREA NITROGEN 24 MG/DL (7-18); CALCIUM LEVEL 10.2 MG/DL (8.8-10.2); CARBON DIOXIDE LEVEL 27 MEQ/L (21-32); CHLORIDE LEVEL 106 MEQ/L (98-107); CREATININE FOR GFR 0.94 MG/DL (0.55-1.30); GLOMERULAR FILTRATION RATE > 60.0 (>45); GLUCOSE, FASTING 79 MG/DL (70-100); POTASSIUM SERUM 4.7 MEQ/L (3.5-5.1); SODIUM LEVEL 139 MEQ/L (136-145)
[2021-09-10 19:31] LABS: CK-MB VALUE MASS 6.7 NG/ML (<3.6); MB/CK RELATIVE INDEX 4.79 (< OR =4)
[2021-09-10 19:37] LABS: INR 0.89; PROTHROMBIN TIME 12.4 SECONDS (12.7-14.5)
[2021-09-10 19:38] LABS: PARTIAL THROMBOPLASTIN TIME 31.3 SECONDS (25.9-37.0)
[2021-09-10 20:00] VITALS: BP 172/80
[2021-09-10] MEDS ORDERED: KETOROLAC 30 MG/ML 1ML VIAL IV ONE (21:50)
[2021-09-10] MEDS ORDERED: BACT800T5 PO (22:22)
== END 2021-09-10 22:45 | disposition left against medical advice (07) ==
LOC: M ED 15:27
DX: S09.90XA Unspecified injury of head, initial encounter (principal); L03.115 Cellulitis of right lower limb; Z53.9 Procedure and treatment not carried out, unspecified reason; W19.XXXA Unspecified fall, initial encounter; Y92.9 Unspecified place or not applicable; Y93.9 Activity, unspecified; Y99.9 Unspecified external cause status; E10.9 Type 1 diabetes mellitus without complications; I10 Essential (primary) hypertension; Z96.641 Presence of right artificial hip joint; Z79.82 Long term (current) use of aspirin; Z79.899 Other long term (current) drug therapy; Z91.89 Other specified personal risk factors, not elsewhere classified; Z88.8 Allergy status to other drugs, medicaments and biological substances
CPT/HCPCS: 70450; 72125; 73070; 73502; 80048; 82550; 82553; 84484; 85025; 85610; 85730; 93005; 93041; 94760; 96374; 99285; J1885

== ENCOUNTER → 2021-09-14 | Outpatient (CLI) | payer MEDICARE ==
[~2021-09-14] MED LIST changes: +GASTROGRAFIN SOLUTION 30ML (Q9963) As Ordered ONE; +ISOVUE-370 76% 100ML VIAL As Ordered ONE; +LEVO175T2; +PROP20TA72
== END ==
LOC: M RAD 11:28
PROVIDERS: ATTEND Internal Medicine Hematology & Oncology
DX: C67.9 Malignant neoplasm of bladder, unspecified (principal); Z96.651 Presence of right artificial knee joint; N20.0 Calculus of kidney; J84.10 Pulmonary fibrosis, unspecified
CPT/HCPCS: 71260; 74177; Q9963; Q9967

== ENCOUNTER 2021-10-10 09:09 | Emergency (ER) | payer MEDICARE ==
[~2021-10-10] VITALS: Ht 167.6 cm; Wt 81.8 kg
[~2021-10-10 09:09] MED LIST changes: -GASTROGRAFIN SOLUTION 30ML (Q9963) As Ordered ONE; -ISOVUE-370 76% 100ML VIAL As Ordered ONE
[2021-10-10] MEDS ORDERED: KETOROLAC 30 MG/ML 1ML VIAL IV ONE (10:35)
[2021-10-10 11:29] LABS: BASO # 0.1 10^3/uL (0.0-0.2); BASO % 0.9 % (0.0-1.0); EOS # 0.7 10^3/uL (0.0-0.5); EOS % 7.2 % (0.0-3.0); HEMATOCRIT 42.3 % (36.0-47.0); HEMOGLOBIN 13.6 g/dl (12.0-15.5); LYMPH # 1.2 10^3/uL (1.5-5.0); LYMPH % 13.1 % (24.0-44.0); MEAN CORPUSCULAR HEMOGLOBIN 30.2 pg (27.0-33.0); MEAN CORPUSCULAR HGB CONC 32.2 g/dl (32.0-36.5); MONO # 0.5 10^3/uL (0.0-0.8); MONO % 5.3 % (2.0-8.0); NEUTROPHILS # 6.5 10^3/uL (1.5-8.5); NEUTROPHILS % 72.6 % (36.0-66.0); PLATELET COUNT, AUTOMATED 206 10^3/uL (150-450)
[2021-10-10 11:40] LABS: INR 0.84; PARTIAL THROMBOPLASTIN TIME 27.8 SECONDS (25.9-37.0); PROTHROMBIN TIME 11.9 SECONDS (12.7-14.5)
[2021-10-10 11:43] LABS: D-DIMER QUANT 744.8 ng/ml (<500)
[2021-10-10 11:46] LABS: ERYTHROCYTE SEDIMENTATION RATE 10 mm/hr (0-30)
[2021-10-10 11:57] LABS: ALBUMIN 3.5 GM/DL (3.2-5.2); ALT/SGPT 19 U/L (12-78); BILIRUBIN,TOTAL 0.3 MG/DL (0.2-1.0); BLOOD UREA NITROGEN 36 MG/DL (7-18); CALCIUM LEVEL 10.5 MG/DL (8.8-10.2); CARBON DIOXIDE LEVEL 31 MEQ/L (21-32); CHLORIDE LEVEL 107 MEQ/L (98-107); GLOMERULAR FILTRATION RATE > 60.0 (>45); GLUCOSE, FASTING 106 MG/DL (70-100); SODIUM LEVEL 140 MEQ/L (136-145); TOTAL PROTEIN 7.5 GM/DL (6.4-8.2)
[2021-10-10] MEDS ORDERED: ISOVUE-370 76% 100ML VIAL As Ordered ONE (12:05)
[2021-10-10] MEDS ORDERED: MORPHINE 4 MG/ML 1ML VIAL/SYRINGE IV ONE (12:05)
[2021-10-10] MEDS ORDERED: APIXABAN 5 MG TAB (ELIQUIS) PO ONE (14:00)
[2021-10-10] MEDS ORDERED: RIVAROXABAN 15MG TAB (XARELTO) PO ONE (14:00)
[2021-10-10] MEDS ORDERED: ELIQ5TAB PO (14:04)
[2021-10-10] MEDS ORDERED: PERC5TAB12 PO (14:06)
[2021-10-10 14:17] VITALS: BP 151/75
== END 2021-10-10 14:35 | disposition home or self-care (01) ==
LOC: M ED 09:09
DX: I82.402 Acute embolism and thrombosis of unspecified deep veins of left lower extremity (principal); R79.89 Other specified abnormal findings of blood chemistry; R97.1 Elevated cancer antigen 125 [CA 125]; E86.0 Dehydration; R91.8 Other nonspecific abnormal finding of lung field; M17.12 Unilateral primary osteoarthritis, left knee; K76.89 Other specified diseases of liver; I10 Essential (primary) hypertension; Z86.73 Personal history of transient ischemic attack (TIA), and cerebral infarction without residual deficits; G47.30 Sleep apnea, unspecified; E03.9 Hypothyroidism, unspecified; Z85.51 Personal history of malignant neoplasm of bladder; Z79.890 Hormone replacement therapy; Z79.82 Long term (current) use of aspirin; Z79.899 Other long term (current) drug therapy; Z91.89 Other specified personal risk factors, not elsewhere classified; Z88.8 Allergy status to other drugs, medicaments and biological substances
CPT/HCPCS: 71275; 73564; 80053; 85025; 85379; 85610; 85652; 85730; 86140; 93971; 96374; 96375; 99284; J1885; J2270; Q9967

== ENCOUNTER 2021-10-12 09:49 | Emergency (ER) | payer MEDICARE ==
[~2021-10-12] VITALS: Ht 167.6 cm; Wt 81.8 kg
[~2021-10-12 09:49] MED LIST changes: +ELIQ5TAB PO; +PERC5TAB12 PO
[2021-10-12] MEDS ORDERED: PERCOCET 5MG/325MG TAB PO ONE (10:05)
[2021-10-12] MEDS ORDERED: VERAPAMIL 40 MG TAB PO ONE (13:20)
[2021-10-12 14:15] VITALS: BP 163/91
[2021-10-12] MEDS ORDERED: PERC5TAB12 PO ×4 (14:15→14:38)
[2021-10-12 14:59] VITALS: BP 145/77
== END 2021-10-12 15:02 | disposition home or self-care (01) ==
LOC: EDBD 09:49 → M ED 09:49
DX: M25.551 Pain in right hip (principal); M79.605 Pain in left leg; C67.9 Malignant neoplasm of bladder, unspecified; I10 Essential (primary) hypertension; M47.816 Spondylosis without myelopathy or radiculopathy, lumbar region; Z96.641 Presence of right artificial hip joint

== ENCOUNTER → 2021-10-18 | Outpatient (REF) | payer MEDICARE ==
[~2021-10-18] MED LIST changes: +FLUT05CR TOP; +HYDR-4571; -LEVO175T2; +LEVO175T2 PO; +MELO15TA28 PO; -PROP20TA72; +TACR0.1O
== END ==
LOC: M SMT 13:05
PROVIDERS: ATTEND Urology
DX: C67.9 Malignant neoplasm of bladder, unspecified (principal)

== ENCOUNTER → 2021-10-29 | Outpatient (CLI) | payer MEDICARE ==
[~2021-10-29] MED LIST changes: -FLUT05CR TOP; +LEVO175T2; -LEVO175T2 PO; -MELO15TA28 PO; +PROP20TA72; -TACR0.1O
[2021-10-29 13:21] LABS: HEMATOCRIT 40.8 % (36.0-47.0); HEMOGLOBIN 13.3 g/dl (12.0-15.5); MEAN CORPUSCULAR HEMOGLOBIN 29.8 pg (27.0-33.0); MEAN CORPUSCULAR HGB CONC 32.6 g/dl (32.0-36.5); MEAN CORPUSCULAR VOLUME 91.5 fl (80.0-96.0); PLATELET COUNT, AUTOMATED 227 10^3/uL (150-450); RED BLOOD COUNT 4.46 10^6/uL (4.00-5.40); WHITE BLOOD COUNT 6.9 10^3/uL (4.0-10.0)
[2021-10-29 13:34] LABS: INR 0.89; PROTHROMBIN TIME 12.4 SECONDS (12.7-14.5)
[2021-10-29 14:13] LABS: ALBUMIN 3.4 GM/DL (3.2-5.2); ALT/SGPT 23 U/L (12-78); BILIRUBIN,TOTAL 0.8 MG/DL (0.2-1.0); BLOOD UREA NITROGEN 20 MG/DL (7-18); CALCIUM LEVEL 10.2 MG/DL (8.8-10.2); CARBON DIOXIDE LEVEL 29 MEQ/L (21-32); CHLORIDE LEVEL 105 MEQ/L (98-107); CHOLESTEROL LEVEL 191 MG/DL (<200); CHOLESTEROL RISK RATIO 2.122 (<5); CREATININE FOR GFR 0.97 MG/DL (0.55-1.30); GLOMERULAR FILTRATION RATE > 60.0 (>45); GLUCOSE, FASTING 82 MG/DL (70-100); HDL CHOLESTEROL 90 MG/DL (>40); LDL CHOLESTEROL 87 MG/DL (<100); NON-HDL-C 101 MG/DL; POTASSIUM SERUM 4.2 MEQ/L (3.5-5.1); SODIUM LEVEL 137 MEQ/L (136-145); THYROID STIMULATING HORMONE 0.187 uIU/ML (0.358-3.740); TOTAL PROTEIN 7.6 GM/DL (6.4-8.2); TRIGLYCERIDES LEVEL 72 MG/DL (<150)
== END ==
LOC: M LAB 11:49 → M RAD 11:49
PROVIDERS: ATTEND Family Medicine
DX: Z01.818 Encounter for other preprocedural examination (principal); R91.8 Other nonspecific abnormal finding of lung field; I10 Essential (primary) hypertension; C67.9 Malignant neoplasm of bladder, unspecified; E03.9 Hypothyroidism, unspecified; Z79.899 Other long term (current) drug therapy

== ENCOUNTER → 2021-10-29 | Outpatient (CLI) | payer MEDICARE ==
[2021-10-29 14:00] LABS: FREE T4 1.47 NG/DL (0.76-1.46); THYROID STIMULATING HORMONE 0.209 uIU/ML (0.358-3.740)
== END ==
LOC: M LAB 11:57
PROVIDERS: ATTEND Internal Medicine Endocrinology, Diabetes & Metabolism
DX: E03.9 Hypothyroidism, unspecified (principal)

== ENCOUNTER → 2021-10-29 | Outpatient (CLI) | payer MEDICARE ==
[2021-10-29 13:14] LABS: HEMATOCRIT 40.6 % (36.0-47.0); HEMOGLOBIN 13.4 g/dl (12.0-15.5); MEAN CORPUSCULAR HEMOGLOBIN 30.5 pg (27.0-33.0); MEAN CORPUSCULAR VOLUME 92.3 fl (80.0-96.0); PLATELET COUNT, AUTOMATED 222 10^3/uL (150-450)
[2021-10-29 13:42] LABS: BLOOD UREA NITROGEN 21 MG/DL (7-18); CALCIUM LEVEL 10.5 MG/DL (8.8-10.2); CARBON DIOXIDE LEVEL 31 MEQ/L (21-32); CHLORIDE LEVEL 105 MEQ/L (98-107); CREATININE FOR GFR 0.97 MG/DL (0.55-1.30); GLOMERULAR FILTRATION RATE > 60.0 (>45); GLUCOSE, FASTING 85 MG/DL (70-100); POTASSIUM SERUM 4.2 MEQ/L (3.5-5.1); SODIUM LEVEL 136 MEQ/L (136-145)
== END ==
LOC: M LAB 11:53
PROVIDERS: ATTEND Urology
DX: Z01.818 Encounter for other preprocedural examination (principal); C67.9 Malignant neoplasm of bladder, unspecified

== ENCOUNTER → 2021-11-01 | Outpatient (REF) | payer MEDICARE | LOC: M SMT 17:03 | PROVIDERS: ATTEND Urology | DX: C67.9 Malignant neoplasm of bladder, unspecified (principal); Z01.818 Encounter for other preprocedural examination ==

== ENCOUNTER → 2021-11-03 | Outpatient (CLI) | payer MEDICARE ==
[~2021-11-03] MED LIST changes: +FLUT05CR TOP; -LEVO175T2; +LEVO175T2 PO; +MELO15TA28 PO; -PROP20TA72; +TACR0.1O
== END ==
LOC: M LABSMTC 09:20
PROVIDERS: ATTEND Anesthesiology
DX: Z01.812 Encounter for preprocedural laboratory examination (principal); Z11.52 Encounter for screening for COVID-19

== ENCOUNTER 2021-11-08 10:04 | Day surgery (SDC) | payer MEDICARE ==
[~2021-11-08] VITALS: Ht 167.6 cm; Wt 88.0 kg
[~2021-11-08 10:04] MED LIST changes: +ceFAZolin SOD 2 GM in IV 1 EA IV ONE
[2021-11-08] MEDS ORDERED: LR 1,000 ML IV SCH ×2 (10:25→12:40)
[2021-11-08] MEDS ORDERED: ROCURONIUM BROMIDE 50 MG/5 ML VIAL As Ordered ONE ×2 (11:08→12:17)
[2021-11-08] MEDS ORDERED: propofoL 200 MG/20 ML VIAL As Ordered ONE ×2 (11:08→11:09)
[2021-11-08] MEDS ORDERED: LIDOCAINE 2% 100MG/5ML SDV (FOR ANES.) As Ordered ONE (11:08)
[2021-11-08] MEDS ORDERED: fentaNYL 100 MCG/2 ML INJECTION As Ordered ONE (11:09)
[2021-11-08] MEDS ORDERED: MIDAZOLAM INJ 2MG/2ML VIAL (J2250 PER 1MG) As Ordered ONE (11:09)
[2021-11-08] MEDS ORDERED: dexameTHASONE 4 MG/ML 1ML VIAL (J1100 PER 1MG) As Ordered ONE (11:46)
[2021-11-08] MEDS ORDERED: ePHEDrine SULFATE 25 MG/5 ML(5MG/ML) SYRINGE As Ordered ONE (11:56)
[2021-11-08] MEDS ORDERED: ONDANSETRON 4MG 2ML VIAL As Ordered ONE (11:57)
[2021-11-08] MEDS ORDERED: ACETAMINOPHEN 1000MG 100ML IV BTL (OFIRMEV) (J0131 PER 10MG) As Ordered ONE (11:57)
[2021-11-08] MEDS ORDERED: SUGAMMADEX SODIUM 500 MG/5 ML VIAL (BRIDION) As Ordered ONE (11:57)
[2021-11-08] MEDS ORDERED: PHENYLephrine 500MCG 5ML (100MCG/ML) SYRINGE As Ordered ONE ×2 (12:01→12:31)
[2021-11-08] MEDS ORDERED: HYDROMORPHONE HCL 0.5 MG/ 0.5 ML SYRINGE (J1170 PER 1) IV PRN (12:40)
[2021-11-08] MEDS ORDERED: fentaNYL 100 MCG/2 ML INJECTION IV PRN (12:40)
[2021-11-08] MEDS ORDERED: ONDANSETRON 4MG 2ML VIAL IV PRN (12:40)
[2021-11-08] MEDS ORDERED: ACETAMINOPHEN TAB 650MG DOSE (2X325MG) PO PRN (13:00)
[2021-11-08] MEDS: oxyCODONE 5MG TAB PO PRN ×2 (13:07→13:28)
[2021-11-08 14:00] VITALS: BP 137/97
== END 2021-11-08 14:15 | disposition home or self-care (01) ==
LOC: M SDC 10:04
PROVIDERS: ATTEND Urology
DX: C67.9 Malignant neoplasm of bladder, unspecified (principal); I10 Essential (primary) hypertension; E03.9 Hypothyroidism, unspecified; R21 Rash and other nonspecific skin eruption; G43.909 Migraine, unspecified, not intractable, without status migrainosus; G25.81 Restless legs syndrome; Z86.73 Personal history of transient ischemic attack (TIA), and cerebral infarction without residual deficits; Z88.8 Allergy status to other drugs, medicaments and biological substances; Z79.82 Long term (current) use of aspirin; Z79.01 Long term (current) use of anticoagulants; Z79.899 Other long term (current) drug therapy; I73.9 Peripheral vascular disease, unspecified
CPT/HCPCS: 52235; 88307; J0131; J0690; J1100; J1170; J2250; J2370; J2405; J3010

== ENCOUNTER → 2021-11-18 | Outpatient (CLI) | payer MEDICARE ==
[~2021-11-18] MED LIST changes: -ceFAZolin SOD 2 GM in IV 1 EA IV ONE
== END ==
LOC: M RAD 14:54
PROVIDERS: ATTEND Nurse Practitioner
DX: M85.9 Disorder of bone density and structure, unspecified (principal)

== ENCOUNTER → 2021-12-23 | Outpatient (CLI) | payer MEDICARE | LOC: M RAD 10:01 | PROVIDERS: ATTEND Nurse Practitioner | DX: R93.7 Abnormal findings on diagnostic imaging of other parts of musculoskeletal system (principal) | CPT/HCPCS: 78306; A9503 ==

== ENCOUNTER → 2022-01-26 | Outpatient (CLI) | payer MEDICARE ==
[~2022-01-26] MED LIST changes: +GASTROGRAFIN SOLUTION 30ML (Q9963) As Ordered ONE; +IRON325T2 PO; +ISOVUE-370 76% 100ML VIAL As Ordered ONE
== END ==
LOC: M RAD 08:55
PROVIDERS: ATTEND Nurse Practitioner
DX: C67.9 Malignant neoplasm of bladder, unspecified (principal); R59.0 Localized enlarged lymph nodes
CPT/HCPCS: 71260; 74177; Q9963; Q9967

== ENCOUNTER → 2022-02-16 | Outpatient (CLI) | payer MEDICARE ==
[~2022-02-16] MED LIST changes: -GASTROGRAFIN SOLUTION 30ML (Q9963) As Ordered ONE; -ISOVUE-370 76% 100ML VIAL As Ordered ONE
[2022-02-16 12:19] LABS: HEMATOCRIT 39.6 % (36.0-47.0); HEMOGLOBIN 12.6 g/dl (12.0-15.5); MEAN CORPUSCULAR HEMOGLOBIN 28.7 pg (27.0-33.0); MEAN CORPUSCULAR HGB CONC 31.8 g/dl (32.0-36.5); MEAN CORPUSCULAR VOLUME 90.2 fl (80.0-96.0); PLATELET COUNT, AUTOMATED 217 10^3/uL (150-450); RED BLOOD COUNT 4.39 10^6/uL (4.00-5.40); WHITE BLOOD COUNT 7.1 10^3/uL (4.0-10.0)
[2022-02-16 15:17] LABS: ALBUMIN 3.1 GM/DL (3.2-5.2); BILIRUBIN,TOTAL 0.4 MG/DL (0.2-1.0); CALCIUM LEVEL 9.9 MG/DL (8.8-10.2); CHOLESTEROL RISK RATIO 2.25 (<5); CREATININE FOR GFR 1.03 MG/DL (0.55-1.30); GLOMERULAR FILTRATION RATE 56.7 (>45); POTASSIUM SERUM 4.6 MEQ/L (3.5-5.1); THYROID STIMULATING HORMONE 0.127 uIU/ML (0.358-3.740); TOTAL PROTEIN 7.4 GM/DL (6.4-8.2)
[2022-02-16 20:11] LABS: HEMOGLOBIN A1c 5.4 %
== END ==
LOC: M LAB 11:23
PROVIDERS: ATTEND Family Medicine
DX: D64.9 Anemia, unspecified (principal); R53.83 Other fatigue; E03.9 Hypothyroidism, unspecified

== ENCOUNTER → 2022-02-16 | Outpatient (CLI) | payer MEDICARE ==
[2022-02-16 15:17] LABS: FREE T4 1.5 NG/DL (0.76-1.46); THYROID STIMULATING HORMONE 0.138 uIU/ML (0.358-3.740)
== END ==
LOC: M LAB 11:27
PROVIDERS: ATTEND Internal Medicine Endocrinology, Diabetes & Metabolism
DX: E03.9 Hypothyroidism, unspecified (principal)

== ENCOUNTER → 2022-02-16 | Outpatient (CLI) | payer MEDICARE ==
[2022-02-16 12:18] LABS: BASO # 0.1 10^3/uL (0.0-0.2); EOS # 0.5 10^3/uL (0.0-0.5); EOS % 6.8 % (0.0-3.0); HEMATOCRIT 40.8 % (36.0-47.0); HEMOGLOBIN 12.9 g/dl (12.0-15.5); LYMPH # 1.1 10^3/uL (1.5-5.0); LYMPH % 15.4 % (24.0-44.0); MEAN CORPUSCULAR HEMOGLOBIN 29.1 pg (27.0-33.0); MEAN CORPUSCULAR HGB CONC 31.6 g/dl (32.0-36.5); MEAN CORPUSCULAR VOLUME 91.9 fl (80.0-96.0); MONO # 0.4 10^3/uL (0.0-0.8); MONO % 5.4 % (2.0-8.0); NEUTROPHILS % 70.8 % (36.0-66.0); PLATELET COUNT, AUTOMATED 219 10^3/uL (150-450); RED BLOOD COUNT 4.44 10^6/uL (4.00-5.40); WHITE BLOOD COUNT 7.1 10^3/uL (4.0-10.0)
[2022-02-16 15:17] LABS: ALBUMIN 3.2 GM/DL (3.2-5.2); BILIRUBIN,TOTAL 0.4 MG/DL (0.2-1.0); CALCIUM LEVEL 9.8 MG/DL (8.8-10.2); CREATININE FOR GFR 1.03 MG/DL (0.55-1.30); GLOMERULAR FILTRATION RATE 56.7 (>45); POTASSIUM SERUM 4.7 MEQ/L (3.5-5.1); TOTAL PROTEIN 7.4 GM/DL (6.4-8.2)
== END ==
LOC: M LAB 11:31
PROVIDERS: ATTEND Psychiatry & Neurology Neurology
DX: G25.81 Restless legs syndrome (principal); D64.9 Anemia, unspecified; R53.83 Other fatigue; E03.9 Hypothyroidism, unspecified

== ENCOUNTER → 2022-02-21 | Outpatient (REF) | payer MEDICARE | LOC: M SMT 12:48 | PROVIDERS: ATTEND Urology | DX: C67.9 Malignant neoplasm of bladder, unspecified (principal) ==

== ENCOUNTER → 2022-03-28 | Outpatient (CLI) | payer MEDICARE | LOC: M PLARAD 11:31 | PROVIDERS: ATTEND Nurse Practitioner | DX: C68.0 Malignant neoplasm of urethra (principal) | CPT/HCPCS: 78815; A9552 ==

== ENCOUNTER → 2022-05-06 | Outpatient (CLI) | payer MEDICARE | LOC: M PLARAD 10:15 | PROVIDERS: ATTEND Nurse Practitioner | DX: C67.9 Malignant neoplasm of bladder, unspecified (principal); M50.30 Other cervical disc degeneration, unspecified cervical region; M47.892 Other spondylosis, cervical region ==

== ENCOUNTER → 2022-05-27 | Outpatient (REF) | payer MEDICARE ==
[~2022-05-27] MED LIST changes: +HYDR-3713 PO
== END ==
LOC: M SMT 16:37
PROVIDERS: ATTEND Urology
DX: C67.9 Malignant neoplasm of bladder, unspecified (principal)

== ENCOUNTER → 2022-05-30 | Outpatient (CLI) | payer MEDICARE ==
[2022-05-30 11:22] LABS: THYROID STIMULATING HORMONE 2.644 uIU/ML (0.55-4.78)
[2022-05-30 11:23] LABS: FREE T4 1.14 NG/DL (0.89-1.76)
== END ==
LOC: M LAB 10:11
PROVIDERS: ATTEND Nurse Practitioner Family
DX: E03.9 Hypothyroidism, unspecified (principal)

== ENCOUNTER → 2022-05-31 | Outpatient (CLI) | payer MEDICARE | LOC: M RAD 16:17 | PROVIDERS: ATTEND Physician Assistant Medical | DX: M79.671 Pain in right foot (principal) ==

== ENCOUNTER → 2022-07-01 | Outpatient (CLI) | payer MEDICARE | LOC: M RAD 10:20 | PROVIDERS: ATTEND Physician Assistant | DX: I87.303 Chronic venous hypertension (idiopathic) without complications of bilateral lower extremity (principal); L97.512 Non-pressure chronic ulcer of other part of right foot with fat layer exposed; L97.912 Non-pressure chronic ulcer of unspecified part of right lower leg with fat layer exposed ==

== ENCOUNTER → 2022-08-30 | Outpatient (REF) | payer MEDICARE | LOC: M SMT 17:34 | PROVIDERS: ATTEND Urology | DX: C67.9 Malignant neoplasm of bladder, unspecified (principal); R82.89 Other abnormal findings on cytological and histological examination of urine ==

== ENCOUNTER → 2022-09-09 | Outpatient (CLI) | payer MEDICARE ==
[~2022-09-09] MED LIST changes: +DULO1CAP5
[2022-09-09 08:22] LABS: HEMATOCRIT 38.5 % (36.0-47.0); HEMOGLOBIN 11.7 g/dl (12.0-15.5); MEAN CORPUSCULAR HEMOGLOBIN 27.1 pg (27.0-33.0); MEAN CORPUSCULAR HGB CONC 30.4 g/dl (32.0-36.5); MEAN CORPUSCULAR VOLUME 89.3 fl (80.0-96.0); PLATELET COUNT, AUTOMATED 210 10^3/uL (150-450); RED BLOOD COUNT 4.31 10^6/uL (4.00-5.40); WHITE BLOOD COUNT 6.8 10^3/uL (4.0-10.0)
[2022-09-09 08:32] LABS: INR 1.04; PROTHROMBIN TIME 13.8 SECONDS (12.5-14.5)
[2022-09-09 08:57] LABS: ALBUMIN 3.1 G/DL (3.2-5.2); BILIRUBIN,TOTAL 0.4 MG/DL (0.3-1.2); CALCIUM LEVEL 9.8 MG/DL (8.3-10.6); CHOLESTEROL RISK RATIO 2.24 (<5); CREATININE FOR GFR 1.07 MG/DL (0.55-1.30); GLOMERULAR FILTRATION RATE 54.1 (>45); HDL CHOLESTEROL 69.1 MG/DL (>40); LDL CHOLESTEROL 64.1 MG/DL (<100); NON-HDL-C 85.9 MG/DL; POTASSIUM SERUM 4.7 MMOL/L (3.5-5.1)
[2022-09-09 08:58] LABS: THYROID STIMULATING HORMONE 0.096 uIU/ML (0.55-4.78)
[2022-09-09 09:14] LABS: HEMOGLOBIN A1c 5.4 % (4.0-6.0)
== END ==
LOC: M LAB 07:23 → M RAD 07:23
PROVIDERS: ATTEND Family Medicine
DX: I10 Essential (primary) hypertension (principal)

== ENCOUNTER → 2022-09-09 | Outpatient (CLI) | payer MEDICARE ==
[2022-09-09 08:22] LABS: HEMOGLOBIN 11.6 g/dl (12.0-15.5); MEAN CORPUSCULAR HEMOGLOBIN 27.5 pg (27.0-33.0); MEAN CORPUSCULAR HGB CONC 30.5 g/dl (32.0-36.5); PLATELET COUNT, AUTOMATED 203 10^3/uL (150-450); RED BLOOD COUNT 4.22 10^6/uL (4.00-5.40); WHITE BLOOD COUNT 6.6 10^3/uL (4.0-10.0)
[2022-09-09 08:56] LABS: CALCIUM LEVEL 9.6 MG/DL (8.3-10.6); CREATININE FOR GFR 1.06 MG/DL (0.55-1.30); GLOMERULAR FILTRATION RATE 54.7 (>45); POTASSIUM SERUM 4.8 MMOL/L (3.5-5.1)
== END ==
LOC: M LAB 07:27
PROVIDERS: ATTEND Urology
DX: Z01.818 Encounter for other preprocedural examination (principal); C67.9 Malignant neoplasm of bladder, unspecified; N39.0 Urinary tract infection, site not specified

== ENCOUNTER → 2022-09-13 | Outpatient (POV) | payer MEDICARE ==
[~2022-09-13] VITALS: Ht 167.6 cm; Wt 96.3 kg
[2022-09-13 10:40] VITALS: BP 183/88
== END ==
LOC: M IRPOV 10:35
PROVIDERS: ATTEND Radiology Diagnostic Radiology
DX: L97.921 Non-pressure chronic ulcer of unspecified part of left lower leg limited to breakdown of skin (principal); I87.2 Venous insufficiency (chronic) (peripheral); R22.42 Localized swelling, mass and lump, left lower limb; C67.9 Malignant neoplasm of bladder, unspecified; Z79.01 Long term (current) use of anticoagulants; Z79.811 Long term (current) use of aromatase inhibitors; Z79.82 Long term (current) use of aspirin; Z86.718 Personal history of other venous thrombosis and embolism; Z88.6 Allergy status to analgesic agent; Z91.048 Other nonmedicinal substance allergy status

== ENCOUNTER → 2022-09-26 | Outpatient (REF) | payer MEDICARE ==
[~2022-09-26] MED LIST changes: -DULO1CAP5; +DULO1CAP5 PO; +SYNT150T PO
[2022-09-26 18:45] LABS: APPEARANCE, URINE HAZY (CLEAR); BACTERIA, URINE AUTO 1+ (NEGATIVE); BILIRUBIN, URINE AUTO NEGATIVE (NEGATIVE); BLOOD, URINE BLOOD 1+ (NEGATIVE); COLOR, URINE YELLOW (YELLOW); GLUCOSE, URINE (UA) AUTO NEGATIVE (NEGATIVE); KETONE, URINE AUTO NEGATIVE (NEGATIVE); LEUKOCYTE ESTERASE, URINE AUTO 2+ (NEGATIVE); MUCUS, URINE SMALL (NEGATIVE); NITRITE, URINE AUTO POSITIVE (NEGATIVE); PROTEIN, URINE AUTO NEGATIVE (NEGATIVE); RBC, URINE AUTO 22 /HPF (0-3); SPECIFIC GRAVITY URINE AUTO 1.017 (1.002-1.035); SQUAMOUS EPITHELIAL CELL UR AU 1 /HPF (0-6); UROBILINOGEN, URINE AUTO 0.2 mg/dL (0.0-2.0); WBC, URINE AUTO 62 /HPF (0-3)
== END ==
LOC: M LAB REF 17:15
PROVIDERS: ATTEND Urology
DX: N39.0 Urinary tract infection, site not specified (principal)

== ENCOUNTER → 2022-09-27 | Outpatient (CLI) | payer MEDICARE ==
[2022-09-27 11:15] LABS: FREE T4 1.47 NG/DL (0.89-1.76); THYROID STIMULATING HORMONE 0.065 uIU/ML (0.55-4.78)
== END ==
LOC: M LAB 09:08
PROVIDERS: ATTEND Nurse Practitioner Family
DX: E03.9 Hypothyroidism, unspecified (principal)

== ENCOUNTER → 2022-09-27 | Outpatient (CLI) | payer MEDICARE | LOC: M RAD 09:12 | PROVIDERS: ATTEND Urology | DX: Z01.818 Encounter for other preprocedural examination (principal); C67.9 Malignant neoplasm of bladder, unspecified; E03.9 Hypothyroidism, unspecified ==

== ENCOUNTER 2022-09-30 08:51 | Day surgery (SDC) | payer MEDICARE ==
[~2022-09-30] VITALS: Ht 167.6 cm; Wt 96.6 kg
[~2022-09-30 08:51] MED LIST changes: +ceFAZolin SOD 2 GM in IV 1 EA IV ONE
[2022-09-30] MEDS ORDERED: ONDANSETRON 4MG 2ML VIAL As Ordered ONE (09:49)
[2022-09-30] MEDS ORDERED: LIDOCAINE 2% 100MG/5ML SDV (FOR ANES.) As Ordered ONE (09:49)
[2022-09-30] MEDS ORDERED: MIDAZOLAM INJ 2MG/2ML VIAL As Ordered ONE (09:49)
[2022-09-30] MEDS ORDERED: fentaNYL 100 MCG/2 ML INJECTION As Ordered ONE (09:49)
[2022-09-30] MEDS ORDERED: propofoL 200 MG/20 ML VIAL As Ordered ONE (09:49)
[2022-09-30] MEDS ORDERED: ACETAMINOPHEN 1000MG 100ML IV BAG As Ordered ONE (10:18)
[2022-09-30] MEDS ORDERED: ROCURONIUM BROMIDE 50MG/5ML VIAL As Ordered ONE (12:23)
[2022-09-30] MEDS ORDERED: LACRILUBE (AKWA TEARS) OPHTH OINT 3.5GM As Ordered ONE (12:43)
[2022-09-30] MEDS ORDERED: SUGAMMADEX SODIUM 500 MG/5 ML VIAL (BRIDION) As Ordered ONE (13:07)
[2022-09-30] MEDS ORDERED: oxyCODONE 5MG TAB PO PRN (13:25)
[2022-09-30] MEDS ORDERED: HYDROMORPHONE HCL 0.5 MG/ 0.5 ML SYRINGE IV PRN (13:25)
[2022-09-30] MEDS ORDERED: ONDANSETRON 4MG 2ML VIAL IV PRN (13:25)
[2022-09-30] MEDS ORDERED: fentaNYL 100 MCG/2 ML INJECTION IV PRN (13:25)
[2022-09-30] MEDS ORDERED: LR 1,000 ML IV SCH (13:25)
[2022-09-30] MEDS ORDERED: ACETAMINOPHEN TAB 650MG DOSE (2X325MG) PO PRN (15:15)
[2022-09-30 15:45] VITALS: BP 152/88; TEMP 97.4; O2SAT 100
== END 2022-09-30 16:04 | disposition home or self-care (01) ==
LOC: M SDC 08:51
PROVIDERS: ATTEND Urology
DX: C67.9 Malignant neoplasm of bladder, unspecified (principal); I10 Essential (primary) hypertension; I73.9 Peripheral vascular disease, unspecified; E03.9 Hypothyroidism, unspecified; G25.81 Restless legs syndrome; Z79.899 Other long term (current) drug therapy; Z88.8 Allergy status to other drugs, medicaments and biological substances; Z79.01 Long term (current) use of anticoagulants; Z92.21 Personal history of antineoplastic chemotherapy; Z86.73 Personal history of transient ischemic attack (TIA), and cerebral infarction without residual deficits
CPT/HCPCS: 52234; 88305; J0131; J0690; J1100; J2250; J2405; J3010

== ENCOUNTER → 2022-11-02 | Outpatient (CLI) | payer MEDICARE ==
[~2022-11-02] MED LIST changes: +GASTROGRAFIN SOLUTION 30ML As Ordered ONE; +ISOVUE-370 76% 100ML VIAL As Ordered ONE; -ROPI2TAB3 PO; +ROPI2TAB46 PO; -ceFAZolin SOD 2 GM in IV 1 EA IV ONE
== END ==
LOC: M RAD 13:44
PROVIDERS: ATTEND Nurse Practitioner
DX: C67.9 Malignant neoplasm of bladder, unspecified (principal)
CPT/HCPCS: 71260; 74177; Q9963; Q9967

== ENCOUNTER → 2023-01-10 | Outpatient (REF) | payer MEDICARE ==
[~2023-01-10] MED LIST changes: +CLOT1CRE71; -GASTROGRAFIN SOLUTION 30ML As Ordered ONE; -ISOVUE-370 76% 100ML VIAL As Ordered ONE
[2023-01-10 19:24] LABS: APPEARANCE, URINE CLOUDY (CLEAR); BACTERIA, URINE AUTO 1+ (NEGATIVE); BILIRUBIN, URINE AUTO NEGATIVE (NEGATIVE); BLOOD, URINE BLOOD 2+ (NEGATIVE); COLOR, URINE YELLOW (YELLOW); GLUCOSE, URINE (UA) AUTO NEGATIVE (NEGATIVE); KETONE, URINE AUTO NEGATIVE (NEGATIVE); LEUKOCYTE ESTERASE, URINE AUTO 3+ (NEGATIVE); MUCUS, URINE SMALL (NEGATIVE); NITRITE, URINE AUTO POSITIVE (NEGATIVE); PROTEIN, URINE AUTO NEGATIVE (NEGATIVE); RBC, URINE AUTO 39 /HPF (0-3); SPECIFIC GRAVITY URINE AUTO 1.015 (1.002-1.035); SQUAMOUS EPITHELIAL CELL UR AU 0 /HPF (0-6); UROBILINOGEN, URINE AUTO 0.2 mg/dL (0.0-2.0); WBC, URINE AUTO TNTC /HPF (0-3)
== END ==
LOC: M SMT 17:44
PROVIDERS: ATTEND Urology
DX: R30.0 Dysuria (principal)

== ENCOUNTER → 2023-01-10 | Outpatient (CLI) | payer MEDICARE ==
[2023-01-10 17:06] LABS: FREE T4 1.23 NG/DL (0.89-1.76); THYROID STIMULATING HORMONE 1.082 uIU/ML (0.55-4.78)
== END ==
LOC: M LAB 15:21
PROVIDERS: ATTEND Nurse Practitioner Family
DX: E03.9 Hypothyroidism, unspecified (principal); R30.0 Dysuria

== ENCOUNTER → 2023-01-16 | Outpatient (REF) | payer MEDICARE | LOC: M SMT 11:40 | PROVIDERS: ATTEND Urology | DX: C67.9 Malignant neoplasm of bladder, unspecified (principal) ==

== ENCOUNTER → 2023-02-06 | Outpatient (CLI) | payer MEDICARE ==
[~2023-02-06] MED LIST changes: -OXYB5TAB10 PO; +OXYB5TAB11 PO
== END ==
LOC: M RAD 14:28
PROVIDERS: ATTEND Family Medicine
DX: M25.552 Pain in left hip (principal); Z96.641 Presence of right artificial hip joint; R93.6 Abnormal findings on diagnostic imaging of limbs

== ENCOUNTER → 2023-04-05 | Outpatient (REF) | payer MEDICARE ==
[2023-04-05 17:39] LABS: APPEARANCE, URINE CLEAR (CLEAR); BACTERIA, URINE AUTO NEGATIVE (NEGATIVE); BILIRUBIN, URINE AUTO NEGATIVE (NEGATIVE); BLOOD, URINE BLOOD 2+ (NEGATIVE); COLOR, URINE STRAW (YELLOW); GLUCOSE, URINE (UA) AUTO NEGATIVE (NEGATIVE); KETONE, URINE AUTO NEGATIVE (NEGATIVE); LEUKOCYTE ESTERASE, URINE AUTO TRACE (NEGATIVE); NITRITE, URINE AUTO NEGATIVE (NEGATIVE); PROTEIN, URINE AUTO NEGATIVE (NEGATIVE); RBC, URINE AUTO 29 /HPF (0-3); SPECIFIC GRAVITY URINE AUTO 1.008 (1.002-1.035); SQUAMOUS EPITHELIAL CELL UR AU 1 /HPF (0-6); UROBILINOGEN, URINE AUTO 0.2 mg/dL (0.0-2.0); WBC, URINE AUTO 10 /HPF (0-3)
== END ==
LOC: M SMT 17:06
PROVIDERS: ATTEND Urology
DX: R31.0 Gross hematuria (principal)

== ENCOUNTER → 2023-04-07 | Outpatient (REF) | payer MEDICARE ==
[2023-04-07 18:15] LABS: APPEARANCE, URINE CLOUDY (CLEAR); BACTERIA, URINE AUTO NEGATIVE (NEGATIVE); BILIRUBIN, URINE AUTO NEGATIVE (NEGATIVE); BLOOD, URINE BLOOD 3+ (NEGATIVE); COLOR, URINE YELLOW (YELLOW); GLUCOSE, URINE (UA) AUTO NEGATIVE (NEGATIVE); KETONE, URINE AUTO NEGATIVE (NEGATIVE); LEUKOCYTE ESTERASE, URINE AUTO 2+ (NEGATIVE); NITRITE, URINE AUTO POSITIVE (NEGATIVE); PROTEIN, URINE AUTO 1+ mg/dL (NEGATIVE); RBC, URINE AUTO TNTC /HPF (0-3); SPECIFIC GRAVITY URINE AUTO 1.019 (1.002-1.035); SQUAMOUS EPITHELIAL CELL UR AU 0 /HPF (0-6); UROBILINOGEN, URINE AUTO 0.2 mg/dL (0.0-2.0); WBC, URINE AUTO 93 /HPF (0-3)
== END ==
LOC: M SMT 17:14
PROVIDERS: ATTEND Urology
DX: N39.0 Urinary tract infection, site not specified (principal)

== ENCOUNTER → 2023-04-10 | Outpatient (CLI) | payer MEDICARE ==
[2023-04-10 15:50] LABS: FREE T4 1.16 NG/DL (0.89-1.76); THYROID STIMULATING HORMONE 1.88 uIU/ML (0.55-4.78)
== END ==
LOC: M LAB 14:21
PROVIDERS: ATTEND Nurse Practitioner Family
DX: E03.9 Hypothyroidism, unspecified (principal)

== ENCOUNTER → 2023-04-25 | Outpatient (REF) | payer MEDICARE | LOC: M SMT 17:06 | PROVIDERS: ATTEND Urology | DX: N39.0 Urinary tract infection, site not specified (principal); C67.9 Malignant neoplasm of bladder, unspecified ==

== ENCOUNTER → 2023-08-18 | Outpatient (REF) | payer MEDICARE ==
[~2023-08-18] MED LIST changes: -CLOT1CRE71; +CLOT1CRE71 TOP; -OXYB5TAB11 PO; +OXYB5TAB14 PO; +TACR0.1O TOP
[2023-08-18 18:05] LABS: APPEARANCE, URINE HAZY (CLEAR); BACTERIA, URINE AUTO 1+ (NEGATIVE); BILIRUBIN, URINE AUTO NEGATIVE (NEGATIVE); BLOOD, URINE BLOOD 3+ (NEGATIVE); COLOR, URINE YELLOW (YELLOW); GLUCOSE, URINE (UA) AUTO NEGATIVE (NEGATIVE); KETONE, URINE AUTO NEGATIVE (NEGATIVE); LEUKOCYTE ESTERASE, URINE AUTO 3+ (NEGATIVE); MUCUS, URINE SMALL (NEGATIVE); NITRITE, URINE AUTO POSITIVE (NEGATIVE); PROTEIN, URINE AUTO NEGATIVE (NEGATIVE); RBC, URINE AUTO TNTC /HPF (0-3); SPECIFIC GRAVITY URINE AUTO 1.013 (1.002-1.035); SQUAMOUS EPITHELIAL CELL UR AU 0 /HPF (0-6); UROBILINOGEN, URINE AUTO 0.2 mg/dL (0.0-2.0); WBC, URINE AUTO 54 /HPF (0-3)
== END ==
LOC: M SMT 16:58
PROVIDERS: ATTEND Urology
DX: C67.9 Malignant neoplasm of bladder, unspecified (principal); N39.0 Urinary tract infection, site not specified

== ENCOUNTER → 2023-10-27 | Outpatient (CLI) | payer MEDICARE ==
[2023-10-27 09:36] LABS: THYROID STIMULATING HORMONE 1.439 uIU/ML (0.55-4.78)
[2023-10-27 09:37] LABS: FREE T4 1.17 NG/DL (0.89-1.76)
== END ==
LOC: M LAB 08:32
PROVIDERS: ATTEND Internal Medicine Endocrinology, Diabetes & Metabolism
DX: E03.9 Hypothyroidism, unspecified (principal)

== ENCOUNTER → 2023-12-11 | Outpatient (REF) | payer MEDICARE | LOC: M SMT 10:07 | PROVIDERS: ATTEND Urology | DX: C67.9 Malignant neoplasm of bladder, unspecified (principal) ==

== ENCOUNTER → 2023-12-14 | Outpatient (CLI) | payer MEDICARE | LOC: M PAIN 13:00 | PROVIDERS: ATTEND Nurse Practitioner Family | DX: M54.50 Low back pain, unspecified (principal); G89.29 Other chronic pain; E03.9 Hypothyroidism, unspecified; I10 Essential (primary) hypertension; Z79.01 Long term (current) use of anticoagulants; Z79.890 Hormone replacement therapy; Z79.899 Other long term (current) drug therapy; Z79.1 Long term (current) use of non-steroidal anti-inflammatories (NSAID); Z79.82 Long term (current) use of aspirin; Z88.2 Allergy status to sulfonamides ==

== ENCOUNTER → 2024-01-16 | Outpatient (REF) | payer MEDICARE ==
[2024-01-16 18:22] LABS: APPEARANCE, URINE CLOUDY (CLEAR); BACTERIA, URINE AUTO 3+ (NEGATIVE); BILIRUBIN, URINE AUTO NEGATIVE (NEGATIVE); BLOOD, URINE BLOOD 3+ (NEGATIVE); COLOR, URINE YELLOW (YELLOW); GLUCOSE, URINE (UA) AUTO NEGATIVE (NEGATIVE); KETONE, URINE AUTO NEGATIVE (NEGATIVE); LEUKOCYTE ESTERASE, URINE AUTO 3+ (NEGATIVE); NITRITE, URINE AUTO NEGATIVE (NEGATIVE); PROTEIN, URINE AUTO NEGATIVE (NEGATIVE); RBC, URINE AUTO 29 /HPF (0-3); SPECIFIC GRAVITY URINE AUTO 1.017 (1.002-1.035); SQUAMOUS EPITHELIAL CELL UR AU 0 /HPF (0-6); UROBILINOGEN, URINE AUTO 0.2 mg/dL (0.0-2.0); WBC, URINE AUTO 117 /HPF (0-3)
== END ==
LOC: M SMT 17:28
PROVIDERS: ATTEND Urology
DX: N39.41 Urge incontinence (principal)

== ENCOUNTER → 2024-04-23 | Outpatient (REF) | payer MEDICARE ==
[~2024-04-23] MED LIST changes: +MULTCHW14 PO; +OMEP20TA17 PO
[2024-04-23 15:19] LABS: APPEARANCE, URINE CLOUDY (CLEAR); BACTERIA, URINE AUTO 1+ (NEGATIVE); BILIRUBIN, URINE AUTO NEGATIVE (NEGATIVE); BLOOD, URINE BLOOD 2+ (NEGATIVE); CALCIUM OXALATE CRYSTALS SMALL; COLOR, URINE AMBER (YELLOW); GLUCOSE, URINE (UA) AUTO NEGATIVE (NEGATIVE); KETONE, URINE AUTO NEGATIVE (NEGATIVE); LEUKOCYTE ESTERASE, URINE AUTO 1+ (NEGATIVE); NITRITE, URINE AUTO NEGATIVE (NEGATIVE); PROTEIN, URINE AUTO 2+ mg/dL (NEGATIVE); RBC, URINE AUTO TNTC /HPF (0-3); SQUAMOUS EPITHELIAL CELL UR AU 8 /HPF (0-6); UROBILINOGEN, URINE AUTO 0.2 mg/dL (0.0-2.0); WBC, URINE AUTO 118 /HPF (0-3)
== END ==
LOC: EEVIPCON 14:43 → M SMT 14:43
PROVIDERS: ATTEND Urology
DX: C67.9 Malignant neoplasm of bladder, unspecified (principal); N39.0 Urinary tract infection, site not specified

== ENCOUNTER → 2024-05-08 | Outpatient (CLI) | payer MEDICARE ==
[2024-05-08 15:34] LABS: FREE T4 1.26 NG/DL (0.89-1.76); THYROID STIMULATING HORMONE 3.555 uIU/ML (0.55-4.78)
== END ==
LOC: M LAB 14:21
PROVIDERS: ATTEND Nurse Practitioner Family
DX: E03.9 Hypothyroidism, unspecified (principal)

== ENCOUNTER → 2024-05-08 | Outpatient (CLI) | payer MEDICARE ==
[2024-05-08 15:30] LABS: CREATININE FOR GFR 1.25 MG/DL (0.55-1.30)
== END ==
LOC: M LAB 14:16
PROVIDERS: ATTEND Psychiatry & Neurology Neurology
DX: I10 Essential (primary) hypertension (principal)

== ENCOUNTER → 2024-05-21 | Outpatient (REF) | payer MEDICARE ==
[2024-05-21 17:47] LABS: APPEARANCE, URINE CLOUDY (CLEAR); BACTERIA, URINE AUTO 1+ (NEGATIVE); BILIRUBIN, URINE AUTO NEGATIVE (NEGATIVE); BLOOD, URINE BLOOD 3+ (NEGATIVE); CALCIUM OXALATE CRYSTALS SMALL; COLOR, URINE YELLOW (YELLOW); GLUCOSE, URINE (UA) AUTO NEGATIVE (NEGATIVE); KETONE, URINE AUTO NEGATIVE (NEGATIVE); LEUKOCYTE ESTERASE, URINE AUTO 3+ (NEGATIVE); MUCUS, URINE SMALL (NEGATIVE); NITRITE, URINE AUTO POSITIVE (NEGATIVE); PROTEIN, URINE AUTO NEGATIVE (NEGATIVE); RBC, URINE AUTO 181 /HPF (0-3); SPECIFIC GRAVITY URINE AUTO 1.013 (1.002-1.035); SQUAMOUS EPITHELIAL CELL UR AU 1 /HPF (0-6); UROBILINOGEN, URINE AUTO 0.2 mg/dL (0.0-2.0); WBC, URINE AUTO TNTC /HPF (0-3)
== END ==
LOC: M SMT 16:57
PROVIDERS: ATTEND Urology
DX: N39.0 Urinary tract infection, site not specified (principal)

== ENCOUNTER → 2024-05-30 | Outpatient (CLI) | payer MEDICARE | LOC: M RAD 09:34 | PROVIDERS: ATTEND Nurse Practitioner Women's Health | DX: K76.89 Other specified diseases of liver (principal) ==

== ENCOUNTER → 2024-07-04 | Outpatient (CLI) | payer MEDICARE ==
[~2024-07-04] MED LIST changes: +BETA1OI
[2024-07-04 15:30] LABS: THYROID STIMULATING HORMONE 9.57 uIU/ML (0.55-4.78)
[2024-07-04 15:34] LABS: FREE T4 1.14 NG/DL (0.89-1.76)
== END ==
LOC: M LAB 14:25
PROVIDERS: ATTEND Nurse Practitioner Family
DX: E03.9 Hypothyroidism, unspecified (principal)

== ENCOUNTER → 2024-07-29 | Outpatient (REF) | payer MEDICARE | LOC: M SMT 15:05 | PROVIDERS: ATTEND Urology | DX: C67.9 Malignant neoplasm of bladder, unspecified (principal) ==

== ENCOUNTER 2024-12-17 10:50 | Inpatient (IN) | payer MEDICARE ==
[~2024-12-17] VITALS: Ht 167.6 cm; Wt 100.6 kg
[2024-12-17] VITALS (8 sets, daily range): BP systolic 164–203; BP diastolic 64–100; TEMP 96.7–98.3; O2SAT 91–97
[~2024-12-17 10:50] MED LIST changes: -FLOM0.4C39 PO; +HYDR-3364 PO; -HYDR-4570 PO; -PRED50TA; +PRED50TA57; +TAMS-18 PO
[2024-12-17 12:26] LABS: BASO # 0.0 10^3/uL (0.0-0.2); BASO % 0.3 % (0.0-1.0); EOS # 0.4 10^3/uL (0.0-0.5); EOS % 5.0 % (0.0-3.0); LYMPH # 0.7 10^3/uL (1.5-5.0); LYMPH % 10.3 % (24.0-44.0); MONO # 0.4 10^3/uL (0.0-0.8); MONO % 6.1 % (2.0-8.0); NEUTROPHILS # 5.6 10^3/uL (1.5-8.5); NEUTROPHILS % 77.7 % (36.0-66.0); PLATELET COUNT, AUTOMATED 272 10^3/uL (150-450)
[2024-12-17 12:49] LABS: CK-MB VALUE MASS 8.9 NG/ML (<3.6)
[2024-12-17 12:50] LABS: ALT/SGPT 19 U/L (7.0-40); AST/SGOT 20 U/L (<34); CALCIUM LEVEL 9.4 MG/DL (8.3-10.6); CARBON DIOXIDE LEVEL 28 MMOL/L (20-31); CHLORIDE LEVEL 108 MMOL/L (98-107); CPK CREATINE PHOSPHOKINASE 91 U/L (34-145); CREATININE FOR GFR 1.31 MG/DL (0.55-1.30); GLOMERULAR FILTRATION RATE 43.6 (>39); MAGNESIUM LEVEL 2.1 MG/DL (1.8-2.4); MB/CK RELATIVE INDEX 9.78 (< OR =4); POTASSIUM SERUM 4.6 MMOL/L (3.5-5.1); SODIUM LEVEL 143 MMOL/L (136-145)
[2024-12-17 12:52] LABS: FREE T4 1.03 NG/DL (0.89-1.76)
[2024-12-17 13:19] LABS: INR 1.28
[2024-12-17] MEDS ORDERED: ISOVUE-370 76% 100 ML VIAL As Ordered ONE (13:48)
[2024-12-17 16:13] LABS: IRON (FE) 5.0 UG/DL (50-170); PERCENT SATURATION 1.4 % (13.2-45.0)
[2024-12-17 16:16] LABS: VITAMIN B12 LEVEL 523.0 PG/ML (211-911)
[2024-12-17] MEDS ORDERED: ZONI50CA11 PO (17:02)
[2024-12-17] MEDS ORDERED: ACET-897 PO (17:02)
[2024-12-17] MEDS ORDERED: MYRB25TA PO (17:02)
[2024-12-17] MEDS ORDERED: LEVO125T4 PO (17:05)
[2024-12-17] MEDS ORDERED: MED REC COMMENT (17:19)
[2024-12-17] MEDS ORDERED: HOME MED LIST COMPLETE! XX SCH (17:20)
[2024-12-17] MEDS ORDERED: ACETAMINOPHEN 500 MG TAB PO PRN (18:30)
[2024-12-17] MEDS ORDERED: hydrALAZINE 20 MG/ML 1 ML VIAL IV PRN (18:30)
[2024-12-17] MEDS: NS (Normal Saline) 0.9% 1,000 ML IV ONE (18:52)
[2024-12-17] MEDS ORDERED: ZONISAMIDE 50MG CAP PO SCH (21:00)
[2024-12-17] MEDS: PANTOPRAZOLE 40MG VIAL IV SCH (21:05)
[2024-12-17] MEDS: oxyBUTYnin *XL* 5 MG TAB PO SCH (21:06)
[2024-12-17] MEDS: GABAPENTIN 300 MG CAP PO SCH (21:06)
[2024-12-17] MEDS: IPRATROPIUM 0.5 MG/ALBUTEROL 2.5 MG INH SOL UD 3 ML NEB PRN (23:15)
[2024-12-18] VITALS (22 sets, daily range): BP systolic 110–192; BP diastolic 56–88; TEMP 97–98.8; O2SAT 90–100
[2024-12-18] MEDS: VERAPAMIL 40 MG TAB PO SCH (00:51)
[2024-12-18] MEDS: PROPRANOLOL 20 MG TAB PO SCH (00:51)
[2024-12-18] MEDS: ZONISAMIDE 25 MG PO SCH (00:52)
[2024-12-18 05:49] LABS: PLATELET COUNT, AUTOMATED 214 10^3/uL (150-450)
[2024-12-18] MEDS: LEVOTHYROXINE 125 MCG TABLET (0.125 MG) PO SCH (05:50)
[2024-12-18 06:19] LABS: CALCIUM LEVEL 9.7 MG/DL (8.3-10.6); CARBON DIOXIDE LEVEL 26.0 MMOL/L (20-31); CHLORIDE LEVEL 110.0 MMOL/L (98-107); CREATININE FOR GFR 1.18 MG/DL (0.55-1.30); GLOMERULAR FILTRATION RATE 49.4 (>39); POTASSIUM SERUM 4.7 MMOL/L (3.5-5.1); SODIUM LEVEL 145.0 MMOL/L (136-145)
[2024-12-18] MEDS: VITAMIN D 1,000 INTERNATIONAL UNITS TABLET PO SCH (10:07)
[2024-12-18] MEDS: FUROSEMIDE 20 MG/2 ML VIAL IV ONE (13:41)
[2024-12-18] MEDS ORDERED: LIDOCAINE 2% 100 MG/5 ML SDV (FOR ANES.) As Ordered ONE (14:54)
[2024-12-18] MEDS: hydrALAZINE 20 MG/ML 1 ML VIAL IV PRN (16:12)
[2024-12-18] MEDS: LOSARTAN 50 MG TABLET PO SCH (17:33)
[2024-12-19 04:18] VITALS: BP 150/69; TEMP 97.2; O2SAT 92
[2024-12-19 05:49] LABS: BASO # 0.1 10^3/uL (0.0-0.2); BASO % 0.9 % (0.0-1.0); EOS # 0.4 10^3/uL (0.0-0.5); EOS % 5.8 % (0.0-3.0); LYMPH # 0.9 10^3/uL (1.5-5.0); LYMPH % 12.9 % (24.0-44.0); MONO # 0.6 10^3/uL (0.0-0.8); MONO % 8.2 % (2.0-8.0); NEUTROPHILS # 4.8 10^3/uL (1.5-8.5); NEUTROPHILS % 71.8 % (36.0-66.0); PLATELET COUNT, AUTOMATED 235 10^3/uL (150-450)
[2024-12-19 06:10] LABS: CALCIUM LEVEL 9.4 MG/DL (8.3-10.6); CARBON DIOXIDE LEVEL 28.0 MMOL/L (20-31); CHLORIDE LEVEL 109.0 MMOL/L (98-107); CREATININE FOR GFR 1.25 MG/DL (0.55-1.30); GLOMERULAR FILTRATION RATE 46.1 (>39); POTASSIUM SERUM 4.4 MMOL/L (3.5-5.1); SODIUM LEVEL 145.0 MMOL/L (136-145)
[2024-12-19 08:00] VITALS: BP 127/62; TEMP 97.6; O2SAT 94
[2024-12-19] MEDS: FERRIC CARBOXYMALTOSE INJ 750 MG, VIAL MATE ADAPTER 1 EACH in NS 100 ML IV ONE (10:14)
[2024-12-19] MEDS: PANTOPRAZOLE 40MG TAB PO SCH (10:17)
[2024-12-19 10:21] VITALS: BP 127/62
[2024-12-19] MEDS ORDERED: LOSA50TA28 PO (10:36)
[2024-12-19] MEDS ORDERED: PROT1TAB2 PO (10:36)
== END 2024-12-19 14:43 | disposition home or self-care (01) | DRG 384 ==
LOC: M ED 10:50 → EEVIPCON 18:30 → M ED INP 18:30 → M PCU 21:40
PROVIDERS: ADMIT Internal Medicine; ATTEND Internal Medicine
PROC: 30233N1 Transfusion of Nonautologous Red Blood Cells into Peripheral Vein, Percutaneous Approach (ICD-10-PCS; 2024-12-17)
PROC: 0DB68ZX Excision of Stomach, Via Natural or Artificial Opening Endoscopic, Diagnostic (ICD-10-PCS; principal; 2024-12-18 14:30)
DX: K25.9 Gastric ulcer, unspecified as acute or chronic, without hemorrhage or perforation (principal); D62 Acute posthemorrhagic anemia; C68.0 Malignant neoplasm of urethra; I12.9 Hypertensive chronic kidney disease with stage 1 through stage 4 chronic kidney disease, or unspecified chronic kidney disease; E55.9 Vitamin D deficiency, unspecified; N18.9 Chronic kidney disease, unspecified; Z86.718 Personal history of other venous thrombosis and embolism; Z86.73 Personal history of transient ischemic attack (TIA), and cerebral infarction without residual deficits; E03.9 Hypothyroidism, unspecified; G62.9 Polyneuropathy, unspecified; G25.81 Restless legs syndrome; G43.909 Migraine, unspecified, not intractable, without status migrainosus; Z79.01 Long term (current) use of anticoagulants; Z96.641 Presence of right artificial hip joint; Z79.899 Other long term (current) drug therapy; Z79.82 Long term (current) use of aspirin; Z79.890 Hormone replacement therapy; Z88.8 Allergy status to other drugs, medicaments and biological substances; K92.0 Hematemesis

== ENCOUNTER → 2025-01-02 | Outpatient (CLI) | payer MEDICARE ==
[~2025-01-02] MED LIST changes: +ACET-897 PO; +LEVO125T4 PO; +LOSA50TA28 PO; +MED REC COMMENT; +MYRB25TA PO; +PROT1TAB2 PO; +ZONI50CA11 PO
[2025-01-02 15:26] LABS: FREE T4 1.31 NG/DL (0.89-1.76)
== END ==
LOC: M LAB 13:39
PROVIDERS: ATTEND Internal Medicine Endocrinology, Diabetes & Metabolism
DX: E03.9 Hypothyroidism, unspecified (principal)

== ENCOUNTER → 2025-01-20 | Outpatient (CLI) | payer MEDICARE ==
[2025-01-20 12:28] LABS: BASO # 0.1 10^3/uL (0.0-0.2); BASO % 1.7 % (0.0-1.0); EOS # 0.4 10^3/uL (0.0-0.5); EOS % 7.7 % (0.0-3.0); LYMPH # 0.8 10^3/uL (1.5-5.0); LYMPH % 15.9 % (24.0-44.0); MONO # 0.4 10^3/uL (0.0-0.8); MONO % 7.5 % (2.0-8.0); NEUTROPHILS # 3.4 10^3/uL (1.5-8.5); NEUTROPHILS % 66.6 % (36.0-66.0); PLATELET COUNT, AUTOMATED 172 10^3/uL (150-450)
[2025-01-20 13:10] LABS: ALT/SGPT 20.0 U/L (7.0-40); AST/SGOT 23.0 U/L (<34); CALCIUM LEVEL 10.3 MG/DL (8.3-10.6); CARBON DIOXIDE LEVEL 27.0 MMOL/L (20-31); CHLORIDE LEVEL 105.0 MMOL/L (98-107); CHOLESTEROL LEVEL 187.0 MG/DL (<200); CHOLESTEROL RISK RATIO 2.7 (<5); CREATININE FOR GFR 1.24 MG/DL (0.55-1.30); GLOMERULAR FILTRATION RATE 46.5 (>39); IRON (FE) 42.0 UG/DL (50-170); LDL CHOLESTEROL 99.6 MG/DL (<100); NON-HDL-C 117.8 MG/DL; PERCENT SATURATION 14.9 % (13.2-45.0); POTASSIUM SERUM 4.3 MMOL/L (3.5-5.1); SODIUM LEVEL 140.0 MMOL/L (136-145); TRIGLYCERIDES LEVEL 91.0 MG/DL (<150)
[2025-01-20 13:12] LABS: FREE T4 1.11 NG/DL (0.89-1.76)
== END ==
LOC: M LAB 11:15
PROVIDERS: ATTEND Nurse Practitioner Family
DX: I10 Essential (primary) hypertension (principal); D50.9 Iron deficiency anemia, unspecified; E03.9 Hypothyroidism, unspecified

== ENCOUNTER → 2025-03-10 | Outpatient (REF) | payer MEDICARE | LOC: M SMT 17:04 | PROVIDERS: ATTEND Urology | DX: C67.9 Malignant neoplasm of bladder, unspecified (principal) ==